=== PATIENT | male | born 1955 | race Caucasian/White ===

== ENCOUNTER → 2021-07-02 10:41 | Outpatient (CLI) | payer MEDICARE, MEDICAID, SELFPAY ==
--- NOTE | 2021-07-02 10:52 | EKG12_ITS ---
Test Reason : SOB,CP Blood Pressure : / mmHG Vent. Rate : 080 BPM Atrial Rate : 080 BPM P-R Int : 176 ms QRS Dur : 120 ms QT Int : 384 ms P-R-T Axes : 047 -65 075 degrees QTc Int : 442 ms Normal sinus rhythm Left anterior fascicular block Left ventricular hypertrophy with QRS widening Abnormal ECG Confirmed by NAHOMY MATTHEWS, ADELSO ([id number]), science editor KADEN PRO ([id number]) on 07/02/2021 2:01:32 PM Referred By: Concepción Weiss Confirmed By:ADELSO COREA MD
--- NOTE | 2021-07-04 07:25 | PFT ---
INTRODUCTION: The patient is a 66-year-old male that presents for pulmonary function studies secondary to a diagnosis of shortness of breath. Respiratory therapy reported good patient effort. Bronchodilators were used during testing. INTERPRETATION: Forced expiration spirometry demonstrates the presence of a mild large airways obstructive ventilatory defect. There was no significant response to aerosolized bronchodilators. Spirograms are of good quality but plateau gradually indicating slow emptying of the lungs. Body plethysmography was performed and revealed an elevated RV to 159% of predicted, indicative of underlying air trapping. Diffusing capacity by single breath CO is reduced to 56% of predicted. IMPRESSION: Irreversible mild large airways obstructive ventilatory defect with associated air trapping and symmetric reduction in diffusing capacity.
== END ==
PROVIDERS: PCP Nurse Practitioner Adult Health; Referring Provider Nurse Practitioner Adult Health; Visit Provider Nurse Practitioner Adult Health
DX: R06.02 Shortness of breath (principal); R07.9 Chest pain, unspecified
CPT/HCPCS: 93005; 94060; 94726; 94729

== ENCOUNTER → 2021-11-11 | Outpatient (CLI) | payer MEDICARE, MEDICAID, SELFPAY ==
--- NOTE | 2021-11-11 06:48 | ECHOD_ITS ---
Reason For Study: SOB Procedure This was a 2D Doppler, Color Flow transthoracic echocardiogram. The exam was of adequate technical quality. Exam performed in department. Left Ventricle Normal LV size. Left ventricular systolic function is normal. The estimated ejection fraction is 60 %. No evidence for diastolic dysfunction. No regional wall motion abnormalities noted. Right Ventricle Normal RV size. Normal systolic function. Atria Normal left atrium. Normal right atrium. No doppler evidence for ASD. Bubble contrast study negative for right to left interatrial shunt. Mitral Valve There is no mitral annular calcification. Mild diffuse mitral valve thickening. Moderate mitral valve prolapse, posterior leaflet. Mild (1+) mitral valve insufficiency. Tricuspid Valve Normal tricuspid valve. Trivial tricuspid valve insufficiency. Right ventricular systolic pressure estimated to be 33 mmHg. Aortic Valve Trisinus/trileaflet aortic valve. Normal aortic valve. Pulmonic Valve The pulmonic valve is not well visualized. Trivial pulmonic valve insufficiency. Great Vessels Normal sized aortic root. Pericardium/Pleural No pericardial effusion. Medication Performed a rapid injection of agitated mix of 9 cc saline and 1cc air to assess for atrial septal defect. MMode/2D Measurements & Calculations LVIDd: 4.9 cm IVSd: 1.3 cm Ao root diam: 3.1 cm LVIDs: 3.0 cm LVPWd: 1.3 cm RVDd: 3.2 cm FS: 38.5 % LAV(MOD-bp): 33.8 ml LVAd ap4: 33.0 cm2 LVAd ap2: 27.2 cm2 LAV(MOD-bp) Indexed: 17.5 ml/m2 LVLd ap4: 8.4 cm LVLd ap2: 8.5 cm LAV(MOD-sp2): 28.1 ml EDV(MOD-sp4): 103.8 ml EDV(MOD-sp2): 73.9 ml LAV(MOD-sp4): 36.9 ml EDV(sp4-el): 109.6 ml EDV(sp2-el): 73.7 ml LVAs ap4: 18.7 cm2 LVAs ap2: 16.1 cm2 LVLs ap4: 6.9 cm LVLs ap2: 7.6 cm ESV(MOD-sp4): 42.7 ml ESV(MOD-sp2): 30.8 ml ESV(sp4-el): 42.9 ml ESV(sp2-el): 28.7 ml EF(MOD-sp4): 58.8 % EF(MOD-sp2): 58.4 % EF(sp4-el): 60.8 % SV(MOD-sp4): 61.1 ml SV(MOD-sp2): 43.2 ml SV(sp4-el): 66.7 ml LA A4 area: 15.2 cm2 LA dimension(2D): 4.1 cm RA A4 area: 13.1 cm2 Doppler Measurements & Calculations MV E max andrew: 49.9 cm/sec Lat Peak E' Andrew: 7.2 cm/sec Med Peak E' Andrew: 6.9 cm/sec MV A max andrew: 59.0 cm/sec E/E' lat: 7.0 E/E' med: 7.2 MV E/A: 0.85 Ao V2 max: 114.2 cm/sec LV V1 max: 89.8 cm/sec PA V2 max: 112.2 cm/sec Ao max P.2 mmHg LV V1 max P.2 mmHg TR max andrew: 271.6 cm/sec TR max P.5 mmHg ECHO/Echo Complete Interpretation Summary Left ventricular systolic function is normal. The estimated ejection fraction is 60 %. Mild diffuse mitral valve thickening. Moderate mitral valve prolapse, posterior leaflet Mild (1+) mitral valve insufficiency. Trivial tricuspid valve insufficiency. Trivial pulmonic valve insufficiency. Right ventricular systolic pressure estimated to be 33 mmHg. No evidence for diastolic dysfunction. Bubble contrast study negative for right to left interatrial shunt. Ordering Physician: Arnel Li Referring Physician: Concepción Weiss Performed By: Margaret Emerson RDCS
--- NOTE | 2021-11-11 08:24 | STRESSREP_ITS ---
Stress Test Report Date: Procedure: Pharmacologic stress nuclear imaging study Indications: Shortness of breath/dyspnea on exertion; right foot tumor/radiation therapy Consent: Per the patient Procedure: The patient underwent pharmacologic (Regadenoson 0.4mg ) evaluation with a peak heart rate of 90 beats per minute (58%predicted maximal heart rate) and a peak blood pressure of 138/80 mmHg. The baseline ECG demonstrated sinus bradycardia; poor R wave progression. The peak pharmacologic ECG demonstrated no obvious ECG changes. There were no cardiac dysrhythmias pretest, during pharmacologic infusion, or recovery. There was no complaint of chest discomfort during pharmacologic infusion or recovery. The examination was discontinued secondary to completion of protocol. Impression: 1. Pharmacologic (Regadenoson) evaluation 2. Peak pharmacologic ECG with no obvious ECG changes. 3. There were no cardiac dysrhythmias pretest, during pharmacologic infusion, or recovery. 4. Nuclear images pending Myocardial perfusion imaging study: Technique: The patient was injected with 13.9 millicuries of technetium 99m Cardiolite and subsequently rest SPECT Cardiolite nuclear imaging was obtained in the horizontal long, vertical long, and short axis views. The patient underwent pharmacologic (Regadenoson) evaluation with a peak heart rate of 90 beats per minute (58% percent predicted maximal heart rate) and a peak blood pressure of 138/80 mmHg. The patient was injected with 44.1 millicuries of technetium 99m Cardiolite and subsequently stress SPECT Cardiolite nuclear imaging was obtained in the horizontal long, vertical long, and short axis views. A gated Cardiolite study at peak stress was obtained. Interpretation: Rest and stress SPECT Cardiolite nuclear imaging status post realignment, normalization, and attenuation correction demonstrate relative uniform tracer uptake and myocardial perfusion appearing within normal limits. There is end systolic thickening and brightening. The gated Cardiolite study demonstrates myocardial thickening and inward wall motion. The reported LVEF is 66%. Impression: 1. Rest and stress SPECT Cardiolite nuclear imaging demonstrate relative uniform tracer uptake and myocardial perfusion appearing within normal limits. 2. The gated Cardiolite study reports an LVEF of 66%. This note was generated with Ter[employer]entiaation software. It may contain incorrect words, spelling, and punctuation that were not noted in checking the note before signing.
== END | disposition home or self-care (01) ==
LOC: CVS 06:47
PROVIDERS: PCP Nurse Practitioner Adult Health; Referring Provider Internal Medicine Cardiovascular Disease; Visit Provider Internal Medicine Cardiovascular Disease
DX: R06.02 Shortness of breath (principal); E78.00 Pure hypercholesterolemia, unspecified; R07.9 Chest pain, unspecified; Z82.49 Family history of ischemic heart disease and other diseases of the circulatory system
CPT/HCPCS: 78452; 93017; 93306; A9500; A4216; J2785

== ENCOUNTER → 2024-02-21 | Outpatient (CLI) | payer MEDICARE, SELFPAY ==
[2024-02-21 10:18] LABS: Absolute Lymphocyte Count 1.71 X10^3/uL (0.83-4.51); Absolute Neutrophil Count 5.2 X10^3/uL (2.0-7.7); Basophil# 0.05 X10^3/uL; Basophil% 0.6 % (0-1); Eosinophil# 0.18 X10^3/uL; Eosinophils% 2.3 % (0-5); Hematocrit 48.3 % (40-54); Hemoglobin 15.3 g/dL (13.0-16.5); Lymphocyte # 1.71 X10^3/ul (0.83-4.51); Mean Corp Hgb Conc 31.7 g/dL (32-36); Mean Corpuscular Hgb 29.3 pg (27.0-32.0); Mean Corpuscular Volume 92.5 fL (80-94); Mean Platelet Vol. 10.2 fl (6.2-12.0); Monocyte# 0.64 X10^3/uL; Monocyte% 8.2 % (0-10); NRBC Flagged by Analyzer 0 % (0-5); Neutrophil # 5.15 X10^3/uL (2.7-7.7); Neutrophil % 66.3 % (47-70); Platelet Count 314 K/mm3 (150-450); RBC Distribution Width CV 13.8 % (11.6-14.6); RBC Distribution Width SD 46.5 fl (35.1-43.9); Red Blood Count 5.22 M/mm3 (4.6-6.2); White Blood Count 7.8 K/mm3 (4.4-11.0)
[2024-02-21 10:47] LABS: AST(SGOT) 23 U/L (15-37); Alanine Aminotransfer ALT/SGPT 28 U/L (16-61); Albumin, Serum 3.7 g/dL (3.2-5.0); Alkaline Phosphatase 103 U/L (45-117); Anion Gap 8 (5-15); BUN 17 mg/dL (7-18); BUN/Creat Ratio 22.4 RATIO (10-20); Calcium,Total 9.1 mg/dL (8.5-10.1); Chloride 110 mmol/L (98-107); Cholesterol 133 mg/dL (200); Creatinine, Serum 0.76 mg/dL (0.70-1.30); EST Glomerular Filtration Rate 108 mL/min (>60); Est Glom Filt Rate - Afr Amer 131 mL/min (>60); Globulin 3.6 g/dL (2.2-4.2); Glucose 113 mg/dL (74-106); High Density Lipoprotein 42 mg/dL; PSA,Total - Annual Screen 0.48 ng/mL (0.00-4.00); Potassium 4.3 mmol/L (3.5-5.1); Protein, Total 7.3 g/dL (6.4-8.2); Sodium Level 143 mmol/L (136-145); Triglycerides 127 mg/dL; Very Low Density Lipoprotein 25 mg/dL (5-40)
== END | disposition home or self-care (01) ==
LOC: MFPLAB 08:24
PROVIDERS: PCP Family Medicine; Visit Provider Family Medicine
DX: Z12.5 Encounter for screening for malignant neoplasm of prostate (principal); E78.5 Hyperlipidemia, unspecified
CPT/HCPCS: 36415; 80053; 80061; 84153; 85025; G0103

== ENCOUNTER → 2024-04-01 | Outpatient (CLI) | payer MEDICARE, SELFPAY ==
--- NOTE | 2024-04-01 07:39 | CT_ITS ---
STUDY: LOW DOSE CT LUNG CANCER SCREENING REASON FOR EXAM: Male, 68 years old. Hx of nicotine RADIATION DOSAGE (If Supplied By Facility): CTDIvol = ( 3.02 ) mGy, DLP = ( 92.14 ) mGycm TECHNIQUE: No contrast was administered. Low dose technique was utilized (average mAS-38 and kVp 120). 1.25 mm axial source images with a slice interval of 1.25-mm were reconstructed in lung windows. 2.5 mm axial source images with a slice interval of 2.5-mm were reconstructed in lung windows. 5.0 mm axial source images with a slice interval of 5.0-mm were reconstructed in soft tissue windows. COMPARISON: None. NODULES: Total lung nodules (excluding granulomas): 0 Emphysema: Moderate centrilobular emphysema. Endobronchial lesion: Not present Aorta: Mild atherosclerosis CORONARY ARTERIES: Coronary artery calcification is seen. Heart: Normal size Pulmonary artery: Unremarkable for unopacified technique. Mediastinal nodes: No adenopathy. Other chest and abdominal findings: No significant incidental finding. CT/Low Dose CT Lung Screening IMPRESSION: Lung-RADS category 1 - Continue annual screening with LDCT in 12 months. IMPORTANT NOTES FOR USE: ACR Lung-RADS Version 1.1 Assessment Categories Release Date: 2018 Category: Coded 0-4 bases on nodule(s) with highest degree of suspicion. Negative screen is defined as categories 1 and 2; a positive screen is defined as categories 3 and 4. Category 3 and 4A nodules that are unchanged on interval CT should be coded as category 2, and individuals returned to screening in 12 months. Category 4X: Category 3 or 4 nodules with additional imaging findings that increase the suspicion of lung cancer, such as spiculation, GGN that doubles in size in 1 year, enlarged lymph notes, etc. Category Modifiers: S (significant finding unrelated to lung cancer) Electronically Signed: Ferdinand Reed MD (Brooks) at 10:10 EDT Reading Location ID and State: [facility] / [place] , Service support ,
== END | disposition home or self-care (01) ==
PROVIDERS: PCP Family Medicine; Referring Provider Family Medicine; Visit Provider Family Medicine
DX: Z87.891 Personal history of nicotine dependence (principal)
CPT/HCPCS: 71271

== ENCOUNTER 2024-07-07 10:27 | Emergency (ER) | payer MEDICARE, MEDICAID, SELFPAY ==
[2024-07-07 10:27] VITALS: BP 158/82; PULSE 80; RESP 14; TEMP 36.3; O2SAT 97; BMI 36.6
--- NOTE | 2024-07-07 11:28 | EDS_ITS ---
HPI History of Present Illness Chief Complaint: Nosebleed Narrative Narrative: Patient is a 69-year-old male with past medical history of hypercholesteremia, COPD who presents to the emergency department chief complaint of nosebleed. Patient states that his left side of his nose has been bleeding off and on for the past 3 days. He states that around 9:45 AM this morning he developed a nosebleed and states that he had changed out several tissues in his nose therefore he came here for further evaluation management. Patient states that he is not on any blood thinning medications. Patient notes that he has had a headache as well and notes that his blood pressure has been running high in the 150s 160s he states that he is not on any blood thinner medications. He states that he has not followed up with her primary care physician he states that he wanted to wait until after the holidays to follow-up with them on his blood pressure. [facility] Medical History Acute bronchitis, unspecified Arthritis COPD (chronic obstructive pulmonary disease) Family history of coronary artery disease Pure hypercholesterolemia Home Medications ?Medication ?Instructions ?Recorded ?Last Taken ?Type ascorbic acid (vitamin C) 1,000 mg 1 g PO DAILY 09/25/21 Unknown History tablet atorvastatin 10 mg tablet 10 mg PO QHS 09/25/21 Unknown History albuterol sulfate 90 mcg/actuation 2 puff inhalation Q6H PRN sob 10/23/21 Unknown History aerosol inhaler (ProAir HFA) fluticasone fur. 100 mcg-umeclid 1 inh inhalation DAILY 10/23/21 Unknown History 62.5 mcg-vilant 25 mcg inhalat.powder (Trelegy Ellipta) cholecalciferol (vitamin D3) 25 50 mcg PO DAILY 10/05/22 Unknown History mcg (1,000 unit) tablet multivitamin (One Daily 1 tab PO DAILY 10/05/22 Unknown History Multivitamin tablet) albuterol sulfate 90 mcg/actuation 2 puff inhalation Q4-6H PRN 12/23/23 Unknown Rx aerosol inhaler shortness of breath or wheezing #6.7 grams erythromycin 5 mg/gram (0.5 %) eye RIGHT EYE QHS 07/07/24 Unknown History ointment Allergy/AdvReac Type Severity Reaction Status Date / Time Fish Containing Products Allergy Intermediate Rash Verified 07/07/24 10:28 Iodine and Iodide Containing Allergy Intermediate Rash Verified 07/07/24 10:28 Produc Family History Father CAD (coronary artery disease) Myocardial infarction History of coronary artery bypass surgery Hypertension Mother Heart disease Hypertension Cancer Colon Brother CAD (coronary artery disease) Myocardial infarction Social History Smoking Status: Former smoker alcohol intake: current details: Occasional substance use type: does not use caffeine: Yes Type: coffee Number of servings: 2 ROS ROS ED ROS Narrative Constitutional: Denies any fevers, chills, lightheadedness dizziness Eyes, ears, nose, throat: Complains of bleeding from his nose as noted above denies any changes vision double vision blurry vision Cardiovascular: Denies chest pain palpitation Respiratory: Denies coughing wheezing shortness of breath Neurological: Denies any numbness, wheeze, tingling Musculoskeletal: Denies back pain Skin: Denies rashes or lesions EXAM Physical Exam Narrative Exam Narrative: General: Patient lying in bed rest comfortably did not appear to be in acute distress Head: Atraumatic, normocephalic Eyes, ears, nose, throat: Patient has clot noted to the left anterior nare, no active bleeding noted currently here in the emergency department, PERRL body, EOMI bladder, no conjunctival injection noted Neck: Soft, supple, trach midline Cardiovascular: Regular rate and rhythm Extremities: +5/5 strength noted in the bilateral upper and lower extremities Neurological: Patient following commands knew that he was at [facility] years 2023 Skin: Warm, dry, intact Const Vital Signs: 07/07/24 10:27 07/07/24 12:27 Temperature 97.3 F L Temperature Source Temporal Pulse Rate 80 78 Respiratory Rate 14 16 Blood Pressure 158/82 H 129/86 H Blood Pressure Mean 107 100 Pulse Ox 97 94 Oxygen Delivery Method Room Air Room Air MDM MDM MDM Narrative Medical decision making narrative: Patient is a 69-year-old male who presented to the emergency department chief complaint of epistaxis. Once again the patient is not any blood thinning medications he is nontoxic in appearance and there is no active bleeding at this point time. Patient will be observed here in the emergency department and then be reevaluated. Patient was observed here in the emergency department for a few hours and he had no recurrence of his epistaxis. Patient was advised to keep a close eye on his blood pressure. On repeat evaluation his blood pressure is improved to 129/86. He is advised to get [id number] saline nasal spray and avoid blowing his nose for the next few days. He was advised to keep a blood pressure log and take this to his doctor early next week for an appointment to decide whether he needs antihypertensives or not. Patient would like to go home at this point time he is agreeable this plan all question concerns answered is discharged home in stable condition. Discharge Plan Triage Chief Complaint: Nosebleed ED Provider: Palmer Whittaker Dx/Rx/DC Orders Clinical Impression: Epistaxis Prescriptions: No Action Trelegy Ellipta 100-62.5-25 mcg blister with device 1 inh inhalation DAILY albuterol sulfate [ProAir HFA] 90 mcg/actuation HFA aerosol inhaler 2 puff inhalation Q6H PRN (Reason: sob) atorvastatin 10 mg tablet 10 mg PO QHS ascorbic acid (vitamin C) 1,000 mg tablet 1 g PO DAILY cholecalciferol (vitamin D3) 25 mcg (1,000 unit) tablet 50 mcg PO DAILY multivitamin [One Daily Multivitamin] Tablet 1 tab PO DAILY albuterol sulfate 90 mcg/actuation HFA aerosol inhaler 2 puff inhalation Q4-6H PRN (Reason: shortness of breath or wheezing) Qty: 6.7 0RF erythromycin 5 mg/gram (0.5 %) ointment RIGHT EYE QHS Primary Care Provider: Suresh Castillo Referrals: Suresh Castillo MD [Primary Care Provider] - Activity Restrictions/Additional Instructions: Use [id number] nasal saline spray, avoid blowing nose for the next 3 days, use humidifier as we discussed here. Keep a blood pressure log by randomly taking her blood pressure 2-3 times a day and writing down what time he took it and what the blood pressure was so your doctor can decide if you need blood pressure medication or not. Return with worsening symptoms or any other concerns Print Language: Faroese Disposition Disposition: Home, Self Care
[2024-07-07 12:27] VITALS: BP 129/86; PULSE 78; RESP 16; O2SAT 94
[2024-07-07 12:41] VITALS: BP 148/77; PULSE 68; RESP 15; TEMP 36.6; O2SAT 98
== END 2024-07-07 12:44 | disposition home or self-care (01) ==
PROVIDERS: Emergency Provider Emergency Medicine; PCP Family Medicine; Visit Provider Emergency Medicine
DX: R04.0 Epistaxis (principal); J44.9 Chronic obstructive pulmonary disease, unspecified; R51.9 Headache, unspecified; E78.00 Pure hypercholesterolemia, unspecified; Z79.51 Long term (current) use of inhaled steroids; Z87.891 Personal history of nicotine dependence; Z79.899 Other long term (current) drug therapy
CPT/HCPCS: 99282

== ENCOUNTER → 2024-12-22 | Outpatient (CLI) | payer MEDICARE, SELFPAY ==
--- NOTE | 2024-12-22 09:48 | ECHOCS_ITS ---
Reason For Study Reason For Study: murmur Procedure This was a 2D Doppler, Color Flow transthoracic echocardiogram. The study was technically difficult. Due to body habitus. Contrast injection was performed. Exam performed in department. Left Ventricle Normal LV size. The estimated ejection fraction is 60 %. No evidence for diastolic dysfunction. No regional wall motion abnormalities noted. Right Ventricle Normal RV size. Normal systolic function. Atria The left atrium is mildly enlarged. Normal right atrium. No doppler evidence for ASD. Mitral Valve There is no mitral valve stenosis. Mild (1+) mitral valve insufficiency. Tricuspid Valve There is no tricuspid stenosis. Trivial tricuspid valve insufficiency. Unable to estimate RV systolic pressure due to insufficient tricuspid regurgitant envelope. Aortic Valve Trisinus/trileaflet aortic valve. Aortic sclerosis, no stenosis. There is no aortic stenosis. No aortic valve insufficiency. Pulmonic Valve There is no pulmonic valvular stenosis. No pulmonic valve insufficiency. Great Vessels Normal sized aortic root. Pericardium/Pleural No pericardial effusion. Medication 20 gauge I.V. with prn adaptor inserted into right arm. Diluted definity 3.0ml given slow IV push to enhance endocardial definition. MMode/2D Measurements & Calculations LVIDd: 5.6 cm IVSd: 1.2 cm Ao root diam: 3.2 cm LVIDs: 3.4 cm LVPWd: 1.4 cm RVDd: 2.3 cm FS: 39.1 % LAV(MOD-bp): 79.5 ml LVAd ap4: 33.9 cm2 LVAd ap2: 33.7 cm2 LAV(MOD-bp) Indexed: 39.3 ml/m2 LVLd ap4: 8.1 cm LVLd ap2: 8.3 cm LAV(MOD-sp2): 73.9 ml EDV(MOD-sp4): 116.6 ml EDV(MOD-sp2): 113.7 ml LAV(MOD-sp4): 86.6 ml EDV(sp4-el): 120.1 ml EDV(sp2-el): 115.6 ml LVAs ap4: 19.7 cm2 LVAs ap2: 19.2 cm2 LVLs ap4: 7.3 cm LVLs ap2: 7.2 cm ESV(MOD-sp4): 44.9 ml ESV(MOD-sp2): 42.3 ml ESV(sp4-el): 45.6 ml ESV(sp2-el): 43.7 ml EF(MOD-sp4): 61.5 % EF(MOD-sp2): 62.8 % EF(sp4-el): 62.1 % SV(MOD-sp4): 71.7 ml SV(MOD-sp2): 71.4 ml SV(sp4-el): 74.6 ml SI(MOD-sp4): 35.5 ml/m2 SI(MOD-sp2): 35.3 ml/m2 LA A4 area: 25.0 cm2 LA dimension(2D): 4.8 cm RA A4 area: 14.0 cm2 TAPSE: 2.2 cm Time Measurements MV dec time: 0.20 sec Doppler Measurements & Calculations MV E max andrew: 109.9 cm/sec Lat Peak E' Andrew: 14.6 cm/sec Med Peak E' Andrew: 11.7 cm/sec MV A max andrew: 76.6 cm/sec E/E' lat: 7.5 E/E' med: 9.4 MV E/A: 1.4 MV V2 max: 122.5 cm/sec MV P1/2t max andrew: 119.9 cm/sec Ao V2 max: 116.3 cm/sec MV max P.0 mmHg MV P1/2t: 58.8 msec Ao max P.4 mmHg MV V2 mean: 65.0 cm/sec MV dec slope: 597.0 cm/sec2 Ao V2 mean: 80.1 cm/sec MV mean P.0 mmHg MVA(P1/2t): 3.7 cm2 Ao mean P.9 mmHg MV V2 VTI: 28.4 cm Ao V2 VTI: 24.3 cm AV (velocity ratio): 0.74 LV V1 max: 93.1 cm/sec MR max andrew: 481.2 cm/sec PA V2 max: 87.2 cm/sec LV V1 max P.5 mmHg MR max P.2 mmHg PA V2 mean: 59.2 cm/sec LV V1 mean P.9 mmHg MR mean andrew: 378.7 cm/sec LV V1 mean: 65.0 cm/sec MR mean P.8 mmHg LV V1 VTI: 18.1 cm MR VTI: 129.1 cm TR max andrew: 226.6 cm/sec TR max P.5 mmHg ECHO/Echo Complete W/ Contrast Interpretation Summary The estimated ejection fraction is 60 %. No evidence for diastolic dysfunction. Mild (1+) mitral valve insufficiency. The left atrium is mildly enlarged. Ordering Physician: Suresh Castillo Referring Physician: Suresh Castillo Performed By: Joyce Barnes, KYARA, RVT
--- OUTSIDE RECORDS SUMMARY | 2024-12-22 14:02 | XMS RPT_ITS | CCD ---
Author Organization [facility] Care Team Providers Care Debug Technician Name Role Phone Abhishek, ANTHONY-C Alondra Primary Care Provider Loren Barbour Attending Provider Unavailable KIM Weiss Alondra Referring Provider [phone] Dr. Arnel Li Attending Provider Dr. Arnel Li Referring Provider [phone] Dr. Arnel Li Other Provider Robert MATTHEWS, Apolinar Jean Primary Care Provider [phone] Alonzo MATTHEWS, Ashlyn Unavailable Weiss VSC, Alondra Primary Care Unavailable Weiss VSC, Alondra Referring Unavailable Cain Story Attending Unavailable Anna, Chalon Primary Care Unavailable Jaclyn Pacheco Attending Unavailable Anna, Chalon Referring Unavailable Anna, Chalon Primary Care Unavailable Anna, Chalon Attending Unavailable Anna, Chalon Referring Unavailable Anna, Chalon Primary Care Unavailable Anna, Chalon Attending Unavailable Anna, Chalon Primary Care Unavailable Anna, Chalon Attending Unavailable Anna, Chalon Referring Unavailable Anna, Chalon Primary Care Unavailable Palmer Whittaker Attending Unavailable Allergies Allergy Classification Reported Allergen(s) Allergy Type Date of Onset Reaction(s) Facility (2 sources) Fish Containing Products; Translations: [Fish Containing Products] Propensity to adverse reactions 2 Unknown [facility] Repository (2 sources) Iodine and Iodide Containing Produc; Translations: [Iodine and Iodide Containing Produc] Propensity to adverse reactions 2 Unknown [facility] Repository (1 source) Fish Food Allergy 5 Rash [facility] Work Phone: (1 source) Iodine Drug Allergy 9 Rash [facility] Medications Current Medications Medication Drug Class(es) Dates Sig (Normalized) Sig (Original) Albuterol Sulfate (1 source) beta2-Adrenergic Agonist Start: 10-23-2021 take 1 puff(s) by inhalation every six hours Albuterol Sulfate (Proair Hfa) 90 mcg/actuation HFA aerosol inhaler Active 2 PUFF INHALATION EVERY 6 HOURS October 23, 2021 10:59am Ascorbic Acid (2 sources) Vitamin C Start: 09-25-2021 take 1 g by mouth once daily Ascorbic Acid (Vitamin C) Active 1 GM PO DAILY September 25, 2021 9:29am ascorbic acid (V ITAMIN C ORAL) Take by mouth. Active atorvastatin 10 mg oral tablet (2 sources) HMG-CoA Reductase Inhibitor Start: 09-25-2021 take 10 mg by mouth at bedtime Atorvastatin Active 10 MG PO AT BEDTIME September 25, 2021 9:28am Start: 02-15-2020 End: 09-16-2020 take 1 tablet by mouth once daily at bedtime for hyperlipidemia atorvastatin (LIPITOR) 10 mg tablet Indications: Other hyperlipidemia Take 1 tablet by mouth daily at bedtime. For cholesterol. 90 tablet 1 02/15/2020 09/16/2020 Discontinued cholecalciferol 0.025 mg oral tablet (1 source) Vitamin D Start: 09-25-2021 take 25 ug by mouth once daily Cholecalciferol (Vitamin D3) Active 25 MCG PO DAILY September 25, 2021 9:29am Fluticasone-Umeclidin- Vilanter (1 source) Anticholinergi c, Corticosteroid , beta2-Adrenerg ic Agonist Start: 10-23-2021 Fluticasone-Umeclidi n -Vilanter (Trelegy Ellipta) 100-62.5-25 mcg blister with device Active 1 INH INHALATION DAILY October 23, 2021 10:58am multivitamins(DAILY VITAMIN TAB) (1 source) Start: 09-18-2008 multivitamins( DAILY VITAMIN TAB) Take one(1) tablet daily. 0 09/18/2008 Active VITAMIN E ORAL (1 source) VITAMIN E ORAL T anders by mouth. Active Completed/Discontinued Medications Medication Drug Class(es) Dates Sig (Normalized) Sig (Original) gabapentin 300 mg oral capsule (1 source) Anti-epileptic Agent Start: 09-25-2021 End: 10-23-2021 take 300 mg by mouth once daily Gabapentin Discontinued 300 MG PO DAILY September 25, 2021 9:29am October 23, 2021 11:00am Problems Active Problems Problem Classification Problem Date Documented Da te Episodic/Chronic Chronic obstructive pulmonary disease and bronchiectasis (2 sources) Chronic obstructive lung disease; Translations: [Chronic obstructive pulmonary disease, unspecified] Chronic Disorders of lipid metabolism (3 sources) Pure hypercholesterolemi a; Translations: [Pure hypercholesterolemi a, unspecified] Onset: 11-26-2005 Chronic Heart valve disorders (1 source) Cardiac murmur, unspecified; Translations: [Cardiac murmur, unspecified] Onset: 12-21-2024 Episodic Nonspecific chest pain (2 sources) Chest pain; Translations: [Chest pain, unspecified] Episodic Other lower respiratory disease (1 source) Dyspnea on exertion; Translations: [Shortness of breath] Episodic Other lower respiratory disease (1 source) Shortness of breath; Translations: [Shortness of breath] Episodic Other non-traumatic joint disorders (1 source) Swelling of joint of left wrist; Translations: [Effusion, left wrist] 05-16-2020 Episodic Other nutritional; endocrine; and metabolic disorders (1 source) Obese class I; Translations: [Obesity, Class I, BMI 30-34.9] Onset: 05-16-2020 05-16-2020 Chronic Other upper respiratory disease (1 source) Epistaxis; Translations: [Epistaxis] Onset: 11-17-2024 Episodic Residual codes; unclassified (1 source) Family history of coronary arteriosclerosis; Translations: [Family history of ischemic heart disease and other diseases of the circulatory system] Episodic Residual codes; unclassified (1 source) Family history of ischemic heart disease and other diseases of the circulatory system; Translations: [Family history of ischemic heart disease] Episodic Past or Other Problems Problem Classification Problem Date Documented Da te Episodic/Chronic Coronary atherosclerosis and other heart disease (1 source) Prinzmetal angina; 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] Onset: 11-26-2005 Resolved: 09-04-2019 09-04-2019 Chronic Immunizations and screening for infectious disease (1 source) Encounter for immunization; Translations: [Encounter for immunization] Onset: 04-22-2024 Episodic Other and unspecified benign neoplasm (1 source) Hemangioma of subcutaneous tissue; Translations: [Hemangioma of skin and subcutaneous tissue] Onset: 10-11-2008 09-04-2019 Episodic Other circulatory disease (1 source) H/O: angina pectoris; Translations: [Personal history of other diseases of the circulatory system] Onset: 04-04-2020 04-04-2020 Episodic Other connective tissue disease (1 source) Pain in limb; Translations: [Pain in unspecified limb] Onset: 09-18-2008 Resolved: 09-04-2019 09-04-2019 Episodic Other screening for suspected conditions (not mental disorders or infectious disease) (1 source) Encounter for screening for malignant neoplasm of prostate; Translations: [Encounter for screening for malignant neoplasm of prostate] Onset: 03-23-2024 Episodic Other skin disorders (1 source) Disorder of skin and/or subcutaneous tissue; Translations: [Disorder of the skin and subcutaneous tissue, unspecified] Onset: 09-18-2008 Resolved: 09-04-2019 09-04-2019 Episodic Screening and history of mental health and substance abuse codes (2 sources) Ex-smoker; Translations: [Personal history of nicotine dependence] Onset: 04-04-2020 04-04-2020 Episodic Substance-related disorders (1 source) Tobacco user; Translations: [Nicotine dependence, unspecified, uncomplicated] Onset: 11-26-2005 Resolved: 09-04-2019 09-04-2019 Chronic Results Test Name Value Interpretation Reference Range Facility Emergency Department Summary on 07-07-2024 Emergency Department Summary [facility] Medical Records Department [address] [place] [id number] Emergency Department Summary 07/07/24 MR#: [id number] Acct: [id number] Name: DINO LAWSON Rep #: [id number] : 1955 69 From: Palmer Whittaker DO PCP: Dr. Suresh Castillo MD Status:REG ER Location: ED HPI History of Present Illness Chief Complaint: Nosebleed Narrative Narrative: Patient is a 69-year-old male with past medical history of hypercholesteremia, COPD who presents to the emergency department chief complaint of nosebleed. Patient states that his left side of his nose has been bleeding off and on for the past 3 days. He states that around 9:45 AM this morning he developed a nosebleed and states that he had changed out several tissues in his nose therefore he came here for further evaluation management. Patient states that he is not on any blood thinning medications. Patient notes that he has had a headache as well and notes that his blood pressure has been running high in the 150s 160s he states that he is not on any blood thinner medications. He states that he has not followed up with her primary care physician he states that he wanted to wait until after the holidays to follow-up with them on his blood pressure. [facility] Medical History Acute bronchitis, unspecified Arthritis COPD (chronic obstructive pulmonary disease) Family history of coronary artery disease Pure hypercholesterolemia Home Medications ???Medication ???Instructions ???Recorded ???Last Taken ???Type ascorbic acid (vitamin C) 1,000 mg 1 g PO DAILY 09/25/21 Unknown History tablet atorvastatin 10 mg tablet 10 mg PO QHS 09/25/21 Unknown History albuterol sulfate 90 mcg/actuation 2 puff inhalation Q6H PRN sob 10/23/21 Unknown History aerosol inhaler (ProAir HFA) fluticasone fur. 100 mcg-umeclid 1 inh inhalation DAILY 10/23/21 Unknown History 62.5 mcg-vilant 25 mcg inhalat.powder (Trelegy Ellipta) cholecalciferol (vitamin D3) 25 50 mcg PO DAILY 10/05/22 Unknown History mcg (1,000 unit) tablet multivitamin (One Daily 1 tab PO DAILY 10/05/22 Unknown History Multivitamin tablet) albuterol sulfate 90 mcg/actuation 2 puff inhalation Q4-6H PRN 12/23/23 Unknown Rx aerosol inhaler shortness of breath or wheezing #6.7 grams erythromycin 5 mg/gram (0.5 %) eye RIGHT EYE QHS 07/07/24 Unknown History ointment Allergy/AdvReac Type Severity Reaction Status Date / Time Fish Containing Products Allergy Intermediate Rash Verified 07/07/24 10:28 Iodine and Iodide Containing Allergy Intermediate Rash Verified 07/07/24 10:28 Produc Family History Father CAD (coronary artery disease) Myocardial infarction History of coronary artery bypass surgery Hypertension Mother Heart disease Hypertension Cancer Colon Brother CAD (coronary artery disease) Myocardial infarction Social History Smoking Status: Former smoker alcohol intake: current details: Occasional substance use type: does not use caffeine: Yes Type: coffee Number of servings: 2 ROS ROS ED ROS Narrative Constitutional: Denies any fevers, chills, lightheadedness dizziness Eyes, ears, nose, throat: Complains of bleeding from his nose as noted above denies any changes vision double vision blurry vision Cardiovascular: Denies chest pain palpitation Respiratory: Denies coughing wheezing shortness of breath Neurological: Denies any numbness, wheeze, tingling Musculoskeletal: Denies back pain Skin: Denies rashes or lesions EXAM Physical Exam Narrative Exam Narrative: General: Patient lying in bed rest comfortably did not appear to be in acute distress Head: Atraumatic, normocephalic Eyes, ears, nose, throat: Patient has clot noted to the left anterior nare, no active bleeding noted currently here in the emergency department, PERRL body, EOMI bladder, no conjunctival injection noted Neck: Soft, supple, trach midline Cardiovascular: Regular rate and rhythm Extremities: +5/5 strength noted in the bilateral upper and lower extremities Neurological: Patient following commands knew that he was at [facility] years 2023 Skin: Warm, dry, intact Const Vital Signs: 07/07/24 10:27 07/07/24 12:27 Temperature 97.3 F L Temperature Source Temporal Pulse Rate 80 78 Respiratory Rate 14 16 Blood Pressure 158/82 H 129/86 H Blood Pressure Mean 107 100 Pulse Ox 97 94 Oxygen Delivery Method Room Air Room Air MDM MDM MDM Narrative Medical decision making narrative: Patient is a 69-year-old male who presented to the emergency department chief complaint of epistaxis. Once again the patient is not any blood thinnin (more content not included)... Normal [facility] Office Visit Reporton 2023 Office Visit Report [facility] [address] [place] [address] OFFICE VISIT Date of Service: 04/22/24 MR#: [id number] Acct: [id number] Patient: DINO LAWSON Rep #: [id number] : 1955 Provider: KIM Pacheco Age/Sex: 69/M Location: [facility] Status: Signed Intake Vital Signs 06/28/23 12:27 Height 5 ft 7 in Intake Visit Reasons: TETANUS SHOT Chief Complaint: Tdap Hyperbaric Technologist Required: No Is patient in pain?: No Allergies Fish Containing Products Allergy (Intermediate, Verified 04/22/24 11:07) Rash Iodine and Iodide Containing Produc Allergy (Intermediate, Verified 04/22/24 11:07) Rash Have you fallen in the past year?: No Nurse's Note: pt here to update Tdap, declines evaluation of recent wrist wound, only requesting vaccine. Immunizations Boostrix Tdap 2.5 Lf unit-8 mcg-5 Lf/0.5 mL intramuscular syringe Performing Provider: KIM Pan Performing Location: [facility] Administered by: Tabitha Levine on 04/22/24 11:09 Dose Route Admin Location Dispensed Lot Number Expiration Date NDC Man ufacturer 0.5 mL IM Right Deltoid 0.5 mL [id number] 05/27/26 [id number] VIS Given Date VIS Provided VIS Publication Date 04/22/24 Single Vaccine 21 Eligibility Eligibility Date Funding Source Not Applicable Assessment and Plan Assessment and Plan Orders: Orders Tdap Immunization Today Z23 - Encounter for immunization Clinical Quality Measures Falls Risk Screening/Assistive Devices Have you fallen in the past year?: No 04/22/24 1143 Date Jaclyn ALVAREZ Cosigner Signature: Date (if applicable) CC: Normal [facility] Low Dose CT Lung Screeningon 04-01-[address] Lung Screening [facility] Imaging Services [address] [place] [id number] Lung Screening MR#: [id number] Acct: [id number] Name: DINO LAWSON Rep #: [id number] : 1955 M 68 From: Ferdinand Reed MD PCP: Dr. Suresh Castillo MD Status: [facility] Study: Low Dose CT Lung Screening Date of Exam: 04/01 Exam# [id number] Ordering Dr: Suresh Castillo MD [id number] STUDY: LOW DOSE CT LUNG CANCER SCREENING REASON FOR EXAM: Male, 68 years old. Hx of nicotine RADIATION DOSAGE (If Supplied By Facility): CTDIvol = ( 3.02 ) mGy, DLP = ( 92.14 ) mGycm TECHNIQUE: No contrast was administered. Low dose technique was utilized (average mAS-38 and kVp 120). 1.25 mm axial source images with a slice interval of 1.25-mm were reconstructed in lung windows. 2.5 mm axial source images with a slice interval of 2.5-mm were reconstructed in lung windows. 5.0 mm axial source images with a slice interval of 5.0-mm were reconstructed in soft tissue windows. COMPARISON: None. NODULES: Total lung nodules (excluding granulomas): 0 Emphysema: Moderate centrilobular emphysema. Endobronchial lesion: Not present Aorta: Mild atherosclerosis CORONARY ARTERIES: Coronary artery calcification is seen. Heart: Normal size Pulmonary artery: Unremarkable for unopacified technique. Mediastinal nodes: No adenopathy. Other chest and abdominal findings: No significant incidental finding. CT/Low Dose CT Lung Screening IMPRESSION: Lung-RADS category 1 - Continue annual screening with LDCT in 12 months. IMPORTANT NOTES FOR USE: ACR Lung-RADS Version 1.1 Assessment Categories Release Date: 2018 Category: Coded 0-4 bases on nodule(s) with highest degree of suspicion. Negative screen is defined as categories 1 and 2; a positive screen is defined as categories 3 and 4. Category 3 and 4A nodules that are unchanged on interval CT should be coded as category 2, and individuals returned to screening in 12 months. Category 4X: Category 3 or 4 nodules with additional imaging findings that increase the suspicion of lung cancer, such as spiculation, GGN that doubles in size in 1 year, enlarged lymph notes, etc. Category Modifiers: S (significant finding unrelated to lung cancer) Electronically Signed: Ferdinand Reed MD ([place]oks) at 10:10 EDT Reading Location ID and State: [address] [place] [address] , Service support , CC: Dr. Suresh Castillo MD [employer]ined [employer]: Signed Normal [facility] CBC W/Diff, Automatedon 0 -2023 Absolute Lymph 1.71 X10 3/uL Normal 0.83-4.51 [facility] Comment on above: Order Comment: Order Date: 02/18/24 Order Info: [id number] - CBCD Performed By: #### L 500.4050, L501.9910, L100.0100, L500.4100 #### [facility] [address] [place], [address] Absolute Neut 5.2 X10 3/uL Normal 2.0-7.7 [facility] Comment on above: Order Comment: Order Date: 02/18/24 Order Info: [id number] - CBCD Performed By: #### L 500.4050, L501.9910, L100.0100, L500.4100 #### [facility] [address] [place], [address] Basophils/100 WBC (Bld) 0.6 % Normal 0-1 [facility] Comment on above: Order Comment: Order Date: 02/18/24 Order Info: [id number] - CBCD Performed By: #### L 500.4050, L501.9910, L100.0100, L500.4100 #### [facility] [address] [place], [address] Eosinophils/100 WBC (Bld) 2.3 % Normal 0-5 [facility] Comment on above: Order Comment: Order Date: 02/18/24 Order Info: [id number] - CBCD Performed By: #### L 500.4050, L501.9910, L100.0100, L500.4100 #### [facility] [address] [place], [address] Erythrocyte distribution width (RBC) [Ratio] 13.8 % Normal 11.6-14.6 [facility] Comment on above: Order Comment: Order Date: 02/18/24 Order Info: 018- - CBCD Performed By: #### L 500.4050, L501.9910, L100.0100, L500.4100 #### [facility] [address] [place], [address] Hematocrit (Bld) [Volume fraction] 48.3 % Normal 40-54 [facility] Comment on above: Order Comment: Order Date: 02/18/24 Order Info: [id number] - CBCD Performed By: #### L 500.4050, L501.9910, L100.0100, L500.4100 #### [facility] [address] [place], [address] Hemoglobin (Bld) [Mass/Vol] 15.3 g/dL Normal 13.0-16.5 [facility] Comment on above: Order Comment: Order Date: 02/18/24 Order Info: [id number] - CBCD Performed By: #### L 500.4050, L501.9910, L100.0100, L500.4100 #### [facility] [address] [place], [address] IG% 0.600 Normal 0.0-0.9 [facility] Comment on above: Order Comment: Order Date: 02/18/24 Order Info: [id number]- - CBCD Result Comment: IG% - Immature Granulocytes (promyelocytes, myelocytes and metamyelocytes) > 1% indicates that a LEFT SHIFT is Present. Performed By: #### L 500.4050, L501.9910, L100.0100, L500.4100 #### [facility] [address] [place], [address] Lymphocytes/100 WBC (Bld) 22.0 % Normal 19-41 [facility] Comment on above: Order Comment: Order Date: 02/18/24 Order Info: [id number] - CBCD Performed By: #### L 500.4050, L501.9910, L100.0100, L500.4100 #### [facility] [address] [place], [address] MCH (RBC) [Entitic mass] 29.3 pg Normal 27.0-32.0 [facility] Comment on above: Order Comment: Order Date: 02/18/24 Order Info: [id number]- - CBCD Performed By: #### L 500.4050, L501.9910, L100.0100, L500.4100 #### [facility] [address] [place], [address] MCHC (RBC) [Mass/Vol] 31.7 g/dL Low 32-36 [facility] Comment on above: Order Comment: Order Date: 02/18/24 Order Info: [id number]- - CBCD Performed By: #### L 500.4050, L501.9910, L100.0100, L500.4100 #### [facility] [address] [place], [address] MCV (RBC) [Entitic vol] 92.5 fL Normal 80-94 [facility] Comment on above: Order Comment: Order Date: 02/18/24 Order Info: [id number] - CBCD Performed By: #### L 500.4050, L501.9910, L100.0100, L500.4100 #### [facility] [address] [place], [address] Monocytes/100 WBC (Bld) 8.2 % Normal 0-10 [facility] Comment on above: Order Comment: Order Date: 02/18/24 Order Info: [id number] - CBCD Performed By: #### L 500.4050, L501.9910, L100.0100, L500.4100 #### [facility] [address] [place], [address] Neutrophils/100 WBC (Bld) 66.3 % Normal 47-70 [facility] Comment on above: Order Comment: Order Date: 02/18/24 Order Info: [id number] - CBCD Performed By: #### L 500.4050, L501.9910, L100.0100, L500.4100 #### [facility] [address] [place], [address] Nucleated RBC (Bld) [#/Vol] 0 10*3/uL Normal 0-5 [facility] Comment on above: Order Comment: Order Date: 02/18/24 Order Info: 018- - CBCD Performed By: #### L 500.4050, L501.9910, L100.0100, L500.4100 #### [facility] [address] [place], [address] Platelet mean volume (Bld) [Entitic vol] 10.2 fL Normal 6.2-12.0 [facility] Comment on above: Order Comment: Order Date: 02/18/24 Order Info: [id number]- - CBCD Performed By: #### L 500.4050, L501.9910, L100.0100, L500.4100 #### [facility] [address] [place], [address] Platelets (Bld) [#/Vol] 314 10*3/uL Normal 150-450 [facility] Comment on above: Order Comment: Order Date: 02/18/24 Order Info: [id number] - CBCD Performed By: #### L 500.4050, L501.9910, L100.0100, L500.4100 #### [facility] [address] [place], [address] RBC (Bld) [#/Vol] 5.22 10*6/uL Normal 4.6-6.2 [facility] Comment on above: Order Comment: Order Date: 02/18/24 Order Info: [id number] - CBCD Performed By: #### L 500.4050, L501.9910, L100.0100, L500.4100 #### [facility] [address] [place], [address] RDW SD 46.5 fl High 35.1-43.9 [facility] Comment on above: Order Comment: Order Date: 02/18/24 Order Info: [id number] - CBCD Performed By: #### L 500.4050, L501.9910, L100.0100, L500.4100 #### [facility] [address] [place], [address] WBC (Bld) [#/Vol] 7.8 10*3/uL Normal 4.4-11.0 [facility] Comment on above: Order Comment: Order Date: 02/18/24 Order Info: [id number] - CBCD Performed By: #### L 500.4050, L501.9910, L100.0100, L500.4100 #### [facility] [address] [place], [address] Comprehensive Metabolic Prof [facility] 02-21-2024 Albumin [Mass/Vol] 3.7 g/dL Normal 3.2-5.0 [facility] Comment on above: Order Comment: Order Date: 02/18/24 Order Info: [id number] - CMP Order Info: [id number] - LIPID Order Info: [id number] - PSA Performed By: #### L 500.4050, L501.9910, L100.0100, L500.4100 #### [facility] [address] [place], [address] Albumin/Globulin [Mass ratio] 1.0 {ratio} Normal 0.9-2.4 [facility] Comment on above: Order Comment: Order Date: 02/18/24 Order Info: [id number] - CMP Order Info: - LIPID Order Info: [id number] - PSA Performed By: #### L 500.4050, L501.9910, L100.0100, L500.4100 #### [facility] [address] [place], [address] ALK P 103 U/L Normal 45-117 [facility] Comment on above: Order Comment: Order Date: 02/18/24 Order Info: [id number] - CMP Order Info: - LIPID Order Info: [id number] - PSA Performed By: #### L 500.4050, L501.9910, L100.0100, L500.4100 #### [facility] [address] [place], [address] ALT [Catalytic activity/Vol] 28 U/L Normal 16-61 [facility] Comment on above: Order Comment: Order Date: 02/18/24 Order Info: [id number] - CMP Order Info: [id number] - LIPID Order Info: [id number] - PSA Performed By: #### L 500.4050, L501.9910, L100.0100, L500.4100 #### [facility] [address] [place], [address] AST [Catalytic activity/Vol] 23 U/L Normal 15-37 [facility] Comment on above: Order Comment: Order Date: 02/18/24 Order Info: 07 - CMP Order Info: [id number] - LIPID Order Info: [id number] - PSA Performed By: #### L 500.4050, L501.9910, L100.0100, L500.4100 #### [facility] [facility] [address] [place], [address] Bilirubin [Mass/Vol] 0.50 mg/dL Normal 0.20-1.00 [facility] Comment on above: Order Comment: Order Date: 02/18/24 Order Info: [id number] - CMP Order Info: - LIPID Order Info: [id number] - PSA Result Comment: For patients on eltrombopag therapy, use of Dimension [place] TBIL is not recommended. Performed By: #### L 500.4050, L501.9910, L100.0100, L500.4100 #### [facility] [address] [place], [address] BUN/CRE 22.4 RATIO High 10-20 [facility] Comment on above: Order Comment: Order Date: 02/18/24 Order Info: 785- - CMP Order Info: [id number] - LIPID Order Info: [id number] - PSA Performed By: #### L 500.4050, L501.9910, L100.0100, L500.4100 #### [facility] [address] [place], [address] CA,Total 9.1 mg/dL Normal 8.5-10.1 [facility] Comment on above: Order Comment: Order Date: 02/18/24 Order Info: 07 - CMP Order Info: [id number] - LIPID Order Info: [id number] - PSA Performed By: #### L 500.4050, L501.9910, L100.0100, L500.4100 #### [facility] [address] [place], [address] Chloride [Moles/Vol] 110 mmol/L High 98-107 [facility] Comment on above: Order Comment: Order Date: 02/18/24 Order Info: [id number] - CMP Order Info: [id number] - LIPID Order Info: [id number] - PSA Performed By: #### L 500.4050, L501.9910, L100.0100, L500.4100 #### [facility] [address] [place], [address] CO2 [Moles/Vol] 25.0 mmol/L Normal 21.0-32.0 [facility] Comment on above: Order Comment: Order Date: 02/18/24 Order Info: [id number] - CMP Order Info: - LIPID Order Info: [id number] - PSA Performed By: #### L 500.4050, L501.9910, L100.0100, L500.4100 #### [facility] [address] [place], [address] Creatinine [Mass/Vol] 0.76 mg/dL Normal 0.70-1.30 [facility] Comment on above: Order Comment: Order Date: 02/18/24 Order Info: [id number] - CMP Order Info: - LIPID Order Info: [id number] - PSA Result Comment: The validity of the calculated GFR GFRAA in patients over 70 years has not been determined. Clinical correlation is essential. Performed By: #### L 500.4050, L501.9910, L100.0100, L500.4100 #### [facility] [address] [place], [place], [address] EST GFR - AA 131 mL/min Normal >60 [facility] Comment on above: Order Comment: Order Date: 02/18/24 Order Info: [id number] - CMP Order Info: - LIPID Order Info: [id number] - PSA Result Comment: Afri can Ug[place] GFR Calc Performed By: #### L 500.4050, L501.9910, L100.0100, L500.4100 #### [facility] [address] [place], [address] GAP 8 Normal 5-15 [facility] Comment on above: Order Comment: Order Date: 02/18/24 Order Info: [id number] - CMP Order Info: - LIPID Order Info: [id number] - PSA Performed By: #### L 500.4050, L501.9910, L100.0100, L500.4100 #### [facility] [address] [place], [address] GFR/1.73 sq M.predicted among non-blacks MDRD (S/P/Bld) [Vol rate/Area] 108 mL/min/{1.73_m2} Normal >60 [facility] Comment on above: Order Comment: Order Date: 02/18/24 Order Info: [id number] - CMP Order Info: [id number] - LIPID Order Info: [id number] - PSA Result Comment: Non- GFR Calc Performed By: #### L 500.4050, L501.9910, L100.0100, L500.4100 #### [facility] [address] [place], [address] Globulin (S) [Mass/Vol] 3.6 g/dL Normal 2.2-4.2 [facility] Comment on above: Order Comment: Order Date: 02/18/24 Order Info: [id number] - CMP Order Info: [id number] - LIPID Order Info: [id number] - PSA Performed By: #### L 500.4050, L501.9910, L100.0100, L500.4100 #### [facility] [address] [place], [address] Glucose [Mass/Vol] 113 mg/dL High 74-106 [facility] Comment on above: Order Comment: Order Date: 02/18/24 Order Info: [id number]- - CMP Order Info: [id number] - LIPID Order Info: [id number] - PSA Result Comment: Fast ing Glucose result from 100 to 125 mg/dL suggests IMPAIRED HOMEOSTASIS per A.D.A. criteria. Performed By: #### L 500.4050, L501.9910, L100.0100, L500.4100 #### [facility] [address] [place], [address] Potassium [Moles/Vol] 4.3 mmol/L Normal 3.5-5.1 [facility] Comment on above: Order Comment: Order Date: 02/18/24 Order Info: [id number]- - CMP Order Info: [id number] - LIPID Order Info: [id number] - PSA Performed By: #### L 500.4050, L501.9910, L100.0100, L500.4100 #### [facility] [address] [place], [address] Sodium [Moles/Vol] 143 mmol/L Normal 136-145 [facility] Comment on above: Order Comment: Order Date: 02/18/24 Order Info: 07- - CMP Order Info: [id number] - LIPID Order Info: [id number] - PSA Performed By: #### L 500.4050, L501.9910, L100.0100, L500.4100 #### [facility] [address] [place], [address] T PROT 7.3 g/dL Normal 6.4-8.2 [facility] Comment on above: Order Comment: Order Date: 02/18/24 Order Info: [id number]- - CMP Order Info: [id number] - LIPID Order Info: [id number] - PSA Performed By: #### L 500.4050, L501.9910, L100.0100, L500.4100 #### [facility] [address] [place], [address] Urea nitrogen [Mass/Vol] 17 mg/dL Normal 7-18 [facility] Comment on above: Order Comment: Order Date: 02/18/24 Order Info: [id number]- - CMP Order Info: [id number] - LIPID Order Info: [id number] - PSA Performed By: #### L 500.4050, L501.9910, L100.0100, L500.4100 #### [facility] [address] [place], [address] Lipid Profileon 02-21-2024 Cholesterol [Mass/Vol] 133 mg/dL Normal 200 [facility] Comment on above: Order Comment: Order Date: 02/18/24 Order Info: 07 - CMP Order Info: - LIPID Order Info: [id number] - PSA Result Comment: <200 mg/dL Desirable 200-240 mg/dL Borderline >240 mg/dL High Risk Performed By: #### L 500.4050, L501.9910, L100.0100, L500.4100 #### [facility] [address] [place], [address] Cholesterol in HDL [Mass/Vol] 42 mg/dL Normal [facility] Comment on above: Order Comment: Order Date: 02/18/24 Order Info: [id number] - CMP Order Info: - LIPID Order Info: [id number] - PSA Result Comment: The drugs N-Acetylcysteine and Metamizole may falsely depress this assay. Reference Range HDL <40 mg/dL Low HDL Cholesterol HDL >or= 60 mg/dL High HDL Cholesterol Performed By: #### L 500.4050, L501.9910, L100.0100, L500.4100 #### [facility] [address] [place], [address] Cholesterol in LDL [Mass/Vol] 66 mg/dL Normal 0-130 [facility] Comment on above: Order Comment: Order Date: 02/18/24 Order Info: [id number] - CMP Order Info: - LIPID Order Info: [id number] - PSA Performed By: #### L 500.4050, L501.9910, L100.0100, L500.4100 #### [facility] [address] [place], [address] Cholesterol in VLDL [Mass/Vol] 25 mg/dL Normal 5-40 [facility] Comment on above: Order Comment: Order Date: 02/18/24 Order Info: [id number] - CMP Order Info: - LIPID Order Info: [id number] - PSA Performed By: #### L 500.4050, L501.9910, L100.0100, L500.4100 #### [facility] [address] [place], [address] Triglyceride [Mass/Vol] 127 mg/dL Normal [facility] Comment on above: Order Comment: Order Date: 02/18/24 Order Info: [id number] - CMP Order Info: [id number] - LIPID Order Info: [id number] - PSA Result Comment: The drugs N-Acetylcysteine and Metamizole may falsely depress this assay. Serum Triglycerides Reference Interval Normal <150 mg/dL Borderline high 150 - 199 mg/dL High 200 - 499 mg/dL Very High > or = 500 mg/dL Performed By: #### L 500.4050, L501.9910, L100.0100, L500.4100 #### [facility] [address] [place], [address] PSA,Total - Annual Screenon 02-21-2024 PSA,TOT SCREEN 0.48 ng/mL Normal 0.00-4.00 [facility] Comment on above: Order Comment: Order Date: 02/18/24 Order Info: [id number] - CMP Order Info: [id number] - LIPID Order Info: [id number] - PSA Result Comment: This test was performed using the TPSA assay method for the [employer] chemistry system. Values obtained with different assay methods cannot be used interchangably. When changing PSA assays in the course of monitoring a patient, additional sequential testing should be carried out to confirm baseline values. Performed By: #### L 500.4050, L501.9910, L100.0100, L500.4100 #### [facility] [address] [place], [address] Urgent Care Visit Reporton 0 12-23-2023 Urgent Care Visit Report [facility] [address], [address] [place] [address] OFFICE VISIT Date of Service: 12/23/23 MR#: [id number] Acct: [id number] Name: DINO LAWSON Rep #: [id number] 5 : 1955 Provider: NAHUN Haddad Age/Sex: 68/M Location: [facility] Status: Signed Intake Vital Signs 06/28/23 12:27 12/23/23 09:36 Height 5 ft 7 in Weight: 180 lb BMI 28.1 BP 162/83 H 136/78 H Blood Pressure Location Lt brachial Lt brachial Position Sitting Sitting Respiration 16 17 Pulse 87 78 Pulse Source Monitor NIBP Temp 97.7 F L 98.7 F Temp Source Temporal Temporal Pulse Oximetry (%) 96 96 Oxygen Delivery Method room air room air Intake Visit Reasons: Upper respiratory infection Chief Complaint: Cough, chest congestion, diarrhea Hyperbaric Technologist Required: No Is patient in pain?: No Allergies Fish Containing Products Allergy (Intermediate, Verified 12/23/23 09:40) Rash Iodine and Iodide Containing Produc Allergy (Intermediate, Verified 12/23/23 09:40) Rash Nurse's Note: dry Cough, chest congestion, diarrhea x 1 week. hx COPD but feels different. negative home covid test. PFSH Medical History Acute bronchitis, unspecified Arthritis COPD (chronic obstructive pulmonary disease) Family history of coronary artery disease Pure hypercholesterolemia Family History Father CAD (coronary artery disease) Myocardial infarction History of coronary artery bypass surgery Hypertension Mother Heart disease Hypertension Cancer Colon Brother CAD (coronary artery disease) Myocardial infarction Social History Smoking Status: Former smoker alcohol intake: current details: Occasional substance use type: does not use caffeine: Yes Type: coffee Number of servings: 2 HPI HPI Chief Complaint: Cough, chest congestion, diarrhea Details: DINO LAWSON, is a 68 M who presents to the office today for complaint of cough, chest congestion and minimal diarrhea no focal 5 to 6 days. Patient denies fever, chills, sweats. No hemoptysis, shortness of breath or difficulty breathing. No nausea, vomiting or diarrhea. No loss of taste or smell. Patient does have a history of COPD. No other associated symptoms or alleviating/aggravating factors. ROS Const Constitutional: No other (As above) Exam Const General: cooperative and well developed HENMI Head: normal to inspection and atraumatic Ears: hearing grossly normal bilaterally Nose: nasal discharge clear Face and sinus: normal facial exam Mouth: oral mucosae normal Throat: abnormal tonsil bilaterally hypertrophy 1+ Resp Effort Inspection: normal respiratory effort and no audible wheezes Auscultation: Bilateral: Clear to Auscultation Cardio Palpation: normal PMI Rate: regular rate Rhythm: regular rhythm Neuro General: patient alert and CN's II-XI intact bilaterally Psych Appearance: grossly normal Mental Status: mental status grossly normal Coding Level of Care Code No Charge Diagnoses Upper respiratory infection J06.9 Assessment and Plan Assessment and Plan (1) Upper respiratory infection: Medications: New azithromycin take 500 mg today (day 1), then 250 mg for 4 days (days 2-5) PO 6 tabs 0RF methylprednisolone (Medrol (Chad)) 4 mg PO PER PKG DIR 21 tabs 0RF 6 days albuterol sulfate 90 mcg/actuation 2 puffs inhalation Q4-6H PRN 6.7 grams 0RF shortness of breath or wheezing Plan Azithromycin, Medrol Dosepak and albuterol as prescribed today. Encouraged to get plenty of rest, drink lots of clear liquids, and use Tylenol or Ibuprofen (unless contraindicated) for fever and comfort. Patient also educated on other symptomatic management techniques. To be seen in 7-10 days if no improvement; sooner if worsening of symptoms. Patient advised of potential red flags and when appropriate to report to the ED. Patient verbalized understanding and agreement with all the above. 12/23/23 1453 Date Cain Gordon Signature: Date (if applicable) CC: Normal [facility] CBC W Auto Differential pane l (Bld)on 01-26-2022 Basophils (Bld) [#/Vol] 0.05 10*3/uL Normal <0.11 [facility] Comment on above: Order Comment: Speci men Type: BLOOD SPECIMEN Ordering Facility: [facility] Address: [address] [place] [address], [place] [address] Performed By: #### 5 7021-8 #### [facility] CLIA [id number] [address] [place] [address] [place] Basophils/100 WBC (Bld) 0.7 % Normal [facility] Comment on above: Order Comment: Speci men Type: BLOOD SPECIMEN Ordering Facility: [facility] Address: [address] [place] [address] Performed By: #### 5 7021-8 #### [facility] CLIA [id number] [address] [place] [address] [place] Differential cell count method Nom (Bld) Auto Normal [facility] Comment on above: Order Comment: Speci men Type: BLOOD SPECIMEN Ordering Facility: [facility] Address: [address] [place] [address] Performed By: #### 5 7021-8 #### [facility] CLIA [id number] [facility] [place] [address] [place] Eosinophils (Bld) [#/Vol] 0.19 10*3/uL Normal <0.46 [facility] Comment on above: Order Comment: Speci men Type: BLOOD SPECIMEN Ordering Facility: [facility] Address: [address] [place] [address] Performed By: #### 5 7021-8 #### [facility] CLIA [id number] [address] [place] [address] [place] Eosinophils/100 WBC (Bld) 2.6 % Normal [facility] Comment on above: Order Comment: Speci men Type: BLOOD SPECIMEN Ordering Facility: [facility] Address: [address] [place] [address] Performed By: #### 5 7021-8 #### [facility] CLIA [id number] [address] [place] [address] [place] Erythrocyte distribution width (RBC) [Ratio] 14.0 % Normal 11.5-15.0 [facility] Comment on above: Order Comment: Speci men Type: BLOOD SPECIMEN Ordering Facility: [facility] Address: [address] [place] [address] Performed By: #### 5 7021-8 #### [facility] CLIA [id number] [address] [place] [address] [place] Hematocrit (Bld) [Volume fraction] 48.7 % Normal 39.0-51.0 [facility] Comment on above: Order Comment: Speci men Type: BLOOD SPECIMEN Ordering Facility: [facility] Address: [address] [place] [address] Performed By: #### 5 7021-8 #### [facility] CLIA [id number] [address] [place] [address] [place] Hemoglobin (Bld) [Mass/Vol] 14.9 g/dL Normal 13.0-17.0 [facility] Comment on above: Order Comment: Speci men Type: BLOOD SPECIMEN Ordering Facility: [facility] Address: [address] [place] [address] Performed By: #### 5 7021-8 #### [facility] CLIA [id number] [address] [place] [address] [place] IMMATURE GRAN % 0.4 % Normal [facility] Comment on above: Order Comment: Speci men Type: BLOOD SPECIMEN Ordering Facility: [facility] Address: [address] [place] [address] Performed By: #### 5 7021-8 #### [facility] CLIA [id number] [address] [place] [address] [place] IMMATURE GRAN ABS 0.03 k/uL Normal <0.10 [facility] Comment on above: Order Comment: Speci men Type: BLOOD SPECIMEN Ordering Facility: [facility] Address: [address] [place] [address] Performed By: #### 5 7021-8 #### [facility] CLIA [id number] [address] [place] [address] [place] Lymphocytes (Bld) [#/Vol] 1.80 10*3/uL Normal 1.00-4.00 [facility] Comment on above: Order Comment: Speci men Type: BLOOD SPECIMEN Ordering Facility: [facility] Address: [address] [place] [address] Performed By: #### 5 7021-8 #### [facility] CLIA [id number] [address] [place] [address] [place] Lymphocytes/100 WBC (Bld) 24.3 % Normal [facility] Comment on above: Order Comment: Speci men Type: BLOOD SPECIMEN Ordering Facility: [facility] Address: [address] [place] [address] Performed By: #### 5 7021-8 #### [facility] CLIA [id number] [address] [place] [address] [place] MCH (RBC) [Entitic mass] 28.7 pg Normal 26.0-34.0 [facility] Comment on above: Order Comment: Speci men Type: BLOOD SPECIMEN Ordering Facility: [facility] Address: [address] [place] [address] Performed By: #### 5 7021-8 #### [facility] CLIA [id number] [address] [place] [address] [place] MCHC (RBC) [Mass/Vol] 30.6 g/dL Normal 30.5-36.0 [facility] Comment on above: Order Comment: Speci men Type: BLOOD SPECIMEN Ordering Facility: [facility] Address: [address] [place] [address] Performed By: #### 5 7021-8 #### [facility] CLIA [id number] [address] [id number] [address] [place] MCV (RBC) [Entitic vol] 93.7 fL Normal 80.0-100.0 [facility] Comment on above: Order Comment: Speci men Type: BLOOD SPECIMEN Ordering Facility: [facility] Address: [address] [place] [address] Performed By: #### 5 7021-8 #### [facility] CLIA [id number] [address] [place] [address] [place] Monocytes (Bld) [#/Vol] 0.62 10*3/uL Normal <0.87 [facility] Comment on above: Order Comment: Speci men Type: BLOOD SPECIMEN Ordering Facility: [facility] Address: [address] [place] [address], [place] [address] Performed By: #### 5 7021-8 #### [facility] CLIA [id number] [address] [place] [address] [place] Monocytes/100 WBC (Bld) 8.4 % Normal [facility] Comment on above: Order Comment: Speci men Type: BLOOD SPECIMEN Ordering Facility: [facility] Address: [address] [place] [address] Performed By: #### 5 7021-8 #### [facility] CLIA [id number] [address] [place] [address] [place] Neutrophils (Bld) [#/Vol] 4.73 10*3/uL Normal 1.45-7.50 [facility] Comment on above: Order Comment: Speci men Type: BLOOD SPECIMEN Ordering Facility: [facility] Address: [address] [place] [address] Performed By: #### 5 7021-8 #### [facility] CLIA [id number] [address] [place] [address] [place] Neutrophils/100 WBC (Bld) 63.6 % Normal [facility] Comment on above: Order Comment: Speci men Type: BLOOD SPECIMEN Ordering Facility: [facility] Address: [address] [place] [address], [place] [address] Performed By: #### 5 7021-8 #### [facility] CLIA [id number] [address] [place] [address] [place] Nucleated RBC (Bld) [#/Vol] 10*3/uL Normal <0.01 [facility] Comment on above: Order Comment: Speci men Type: BLOOD SPECIMEN Ordering Facility: [facility] Address: [address] [place] [address] Performed By: #### 5 7021-8 #### [facility] CLIA [id number] [address] [place] [address] [place] Nucleated RBC/100 WBC (Bld) [Ratio] 0.0 /100 WBC Normal [facility] Comment on above: Order Comment: Speci men Type: BLOOD SPECIMEN Ordering Facility: [facility] Address: [address] [place] [address] Performed By: #### 5 7021-8 #### [facility] CLIA [id number] [address] [place] [address] [place] Platelet mean volume (Bld) [Entitic vol] 10.1 fL Normal 9.0-12.7 [facility] Comment on above: Order Comment: Speci men Type: BLOOD SPECIMEN Ordering Facility: [facility] Address: [address] [place] [address] Performed By: #### 5 7021-8 #### [facility] CLIA [id number] [address] [place] [address] [place] Platelets (Bld) [#/Vol] 359 10*3/uL Normal 150-400 [facility] Comment on above: Order Comment: Speci men Type: BLOOD SPECIMEN Ordering Facility: [facility] Address: [address] [place] [address] Performed By: #### 5 7021-8 #### [facility] CLIA [id number] [address] [place] [address] [place] RBC (Bld) [#/Vol] 5.20 10*6/uL Normal 4.20-6.00 [facility] Comment on above: Order Comment: Speci men Type: BLOOD SPECIMEN Ordering Facility: [facility] Address: [address] [place] [address], [place] [address] Performed By: #### 5 7021-8 #### [facility] CLIA [id number] [address] [place] [address] [place] WBC (Bld) [#/Vol] 7.42 10*3/uL Normal 3.70-11.00 [facility] Comment on above: Order Comment: Speci men Type: BLOOD SPECIMEN Ordering Facility: [facility] Address: [address] [place] [address], [place] [address] Performed By: #### 5 7021-8 #### [facility] CLIA [id number] [address] [place] [address] [place] Comprehensive metabolic 2000 panelon 01-26-2022 Albumin [Mass/Vol] 4.3 g/dL Normal 3.9-4.9 [facility] Comment on above: Order Comment: Speci men Type: BLOOD SPECIMEN Ordering Facility: [facility] Address: [address] [place] [address], [place] [address] Performed By: #### 2 4323-8, 06205-5 #### [facility] CLIA [id number] [address] [place] [address] [place] ALP [Catalytic activity/Vol] 104 U/L Normal 38-113 [facility] Comment on above: Order Comment: Speci men Type: BLOOD SPECIMEN Ordering Facility: [facility] Address: [address] [place] [address], [place] [address] Performed By: #### 2 4323-8, 37336-7 #### [facility] CLIA [id number] [address] [place] [address] [place] ALT [Catalytic activity/Vol] 22 U/L Normal 10-54 [facility] Comment on above: Order Comment: Speci men Type: BLOOD SPECIMEN Ordering Facility: [facility] Address: [address] [place] [address], [place] [address] Performed By: #### 2 4323-8, 43994-0 #### [facility] CLIA [id number] [address] [place] [address] [place] Anion gap [Moles/Vol] 10 mmol/L Normal 9-18 [facility] Comment on above: Order Comment: Speci men Type: BLOOD SPECIMEN Ordering Facility: [facility] Address: [address] [place] [address], [place] [address] Performed By: #### 2 4323-8, 14809-7 #### [facility] CLIA [id number] [address] [place] [address] [place] AST [Catalytic activity/Vol] 25 U/L Normal 14-40 [facility] Comment on above: Order Comment: Speci men Type: BLOOD SPECIMEN Ordering Facility: [facility] Address: [address] [place] [address], [place] [address] Performed By: #### 2 4323-8, 57671-4 #### [facility] CLIA [id number] [address] [place] [address] [place] Bilirubin [Mass/Vol] 0.4 mg/dL Normal 0.2-1.3 [facility] Comment on above: Order Comment: Speci men Type: BLOOD SPECIMEN Ordering Facility: [facility] Address: [address] [place] [address], [place] [address] Performed By: #### 2 4323-8, 30930-8 #### [facility] CLIA [id number] [address] [place] [id number] [place] Calcium [Mass/Vol] 9.6 mg/dL Normal 8.5-10.2 [facility] Comment on above: Order Comment: Speci men Type: BLOOD SPECIMEN Ordering Facility: [facility] Address: [address], [place] [address] Performed By: #### 2 4323-8, 47960-4 #### [facility] CLIA [id number] [address] [place] [address] [place] Chloride [Moles/Vol] 105 mmol/L Normal 97-105 [facility] Comment on above: Order Comment: Speci men Type: BLOOD SPECIMEN Ordering Facility: [facility] Address: [address] [place] [address], [place] [address] Performed By: #### 2 4323-8, 83505-9 #### [facility] CLIA [id number] [address] [place] [address] [place] CO2 [Moles/Vol] 26 mmol/L Normal 22-30 [facility] Comment on above: Order Comment: Speci men Type: BLOOD SPECIMEN Ordering Facility: [facility] Address: [address] [place] [address], [place] [address] Performed By: #### 2 4323-8, 15708-7 #### [facility] CLIA [id number] [address] [place] [address] [place] Creatinine [Mass/Vol] 0.80 mg/dL Normal 0.73-1.22 [facility] Comment on above: Order Comment: Speci men Type: BLOOD SPECIMEN Ordering Facility: [facility] Address: [address] [place] [address], [place] [address] Performed By: #### 2 4323-8, 54661-8 #### [facility] CLIA [id number] [address] [place] [address] [place] ESTIMATED GLOMERULAR FILTRATION RATE 97 mL/min/1.73m??? Normal >=60 [facility] Comment on above: Order Comment: Speci men Type: BLOOD SPECIMEN Ordering Facility: [facility] Address: [address] [place] [address], [place] [address] Result Comment: Day mated Glomerular Filtration Rate (eGFR) is calculated using the 2020 CKD-EPI creatinine equation. This equation utilizes serum creatinine, sex, and age as parameters. The creatinine assay has traceable calibration to isotope dilution-mass spectrometry. Refer to KDIGO guidelines for clinical interpretation. In patients with unstable renal function, e.g. those with acute kidney injury, the eGFR may not accurately reflect actual GFR. Performed By: #### 2 4323-8, 28384-4 #### [facility] CLIA [id number] [address] [place] [address] [place] Glucose [Mass/Vol] 89 mg/dL Normal 74-99 [facility] Comment on above: Order Comment: Specjerel velez Type: BLOOD SPECIMEN Ordering Facility: [facility] Address: [address] [place] [address] Result Comment: The [place] [employer] (ADA) provides guidance for cutoff values for fasting glucose and random glucose. The ADA defines fasting as no caloric intake for at least 8 hours. Fasting plasma glucose results between 100 to 125 mg/dL indicate increased risk for diabetes (prediabetes). Fasting plasma glucose results greater than or equal to 126 mg/dL meet the criteria for diagnosis of diabetes. In the absence of unequivocal hyperglycemia, results should be confirmed by repeat testing. In a patient with classic symptoms of hyperglycemia or hyperglycemic crisis, random plasma glucose results greater than or equal to 200 mg/dL meet the criteria for diagnosis of diabetes. Reference: Standards of Medical Care in Diabetes 2016, [place] [employer]. Diabetes Care. 2016.39(Suppl 1). Performed By: #### 2 4323-8, 47168-4 #### [facility] CLIA [id number] [address] [place] [address] [place] Potassium [Moles/Vol] 3.9 mmol/L Normal 3.7-5.1 [facility] Comment on above: Order Comment: Fito velez Type: BLOOD SPECIMEN Ordering Facility: [facility] Address: [address] [place] [address], [place] [address] Performed By: #### 2 4323-8, 05173-3 #### [facility] CLIA [id number] [address] [place] [address] [place] Protein [Mass/Vol] 7.0 g/dL Normal 6.3-8.0 [facility] Comment on above: Order Comment: Speci men Type: BLOOD SPECIMEN Ordering Facility: [facility] Address: [address] [place] [address] Performed By: #### 2 4323-8, 75072-6 #### [facility] CLIA [id number] [address] [place] [address] [place] Sodium [Moles/Vol] 141 mmol/L Normal 136-144 [facility] Comment on above: Order Comment: Speci men Type: BLOOD SPECIMEN Ordering Facility: [facility] Address: [address] [place] [address] Performed By: #### 2 4323-8, 56142-3 #### [facility] CLIA [id number] [address] [place] [address] [place] Urea nitrogen [Mass/Vol] 19 mg/dL Normal 9-24 [facility] Comment on above: Order Comment: Speci men Type: BLOOD SPECIMEN Ordering Facility: [facility] Address: [address] [place] [address], [place] [address] Performed By: #### 2 4323-8, 02024-0 #### [facility] CLIA [id number] [address] [place] [address] [place] Lipid 1996 panelon 2 Cholesterol [Mass/Vol] 134 mg/dL Normal <200 [facility] Comment on above: Order Comment: Speci men Type: BLOOD SPECIMEN Ordering Facility: [facility] Address: [address] [place] [address] Result Comment: <200 mg/dL, Desirable 200-239 mg/dL, Borderline high >239 mg/dL, High Performed By: #### 2 4323-8, 42520-2 #### [facility] CLIA [id number] [address] [place] Cholesterol in HDL [Mass/Vol] 39 mg/dL Low >39 [facility] Comment on above: Order Comment: Fito velez Type: BLOOD SPECIMEN Ordering Facility: [facility] Address: [address] [place] [address] Result Comment: 40-5 9 mg/dL, Acceptable >59 mg/dL, High: Negative risk factor for coronary heart disease <40 mg/dL, Low: Positive risk factor for coronary heart disease Performed By: #### 2 4323-8, 94345-2 #### [facility] CLIA [id number] [address] [facility] Cholesterol in LDL [Mass/Vol] 80 mg/dL Normal <100 [facility] Comment on above: Order Comment: Fito [facility] Type: BLOOD SPECIMEN Ordering Facility: [facility] Address: [address] [place] [address], [place] [address] Result Comment: <100 mg/dL, Optimal 100-129 mg/dL, Near optimal/above optimal 130-159 mg/dL, Borderline high 160-189 mg/dL, High >189 mg/dL, Very high Secondary prevention optimal LDL Cholesterol levels are recommended to be < 70 mg/dL Performed By: #### 2 4323-8, 25279-8 #### [facility] CLIA [id number] [address] [facility] Cholesterol in LDL/Cholesterol in HDL [Mass ratio] 2.05 {ratio} Normal <2.54 [facility] Comment on above: Order Comment: [facility] Type: BLOOD SPECIMEN Ordering Facility: [facility] Address: [address] [place] [address] Result Comment: Randy torres: 1. National Cholesterol Education Program ATP III Guideline At-A-Glance Quick Desk Reference: National Heart, Lung, and Blood [place]. National Institutes of Health. 2001: NIH Publication No. 01-3305. 2. An International Atherosclerosis Society position paper: global recommendations for the management of dyslipidemia: executive summary, Atherosclerosis. 2014: 232(2):410-413. Performed By: #### 2 4323-8, 79033-0 #### [facility] CLIA [id number] [address] [place] [address] [place] Cholesterol in VLDL [Mass/Vol] 15 mg/dL Normal <30 [facility] Comment on above: Order Comment: Speci men Type: BLOOD SPECIMEN Ordering Facility: [facility] Address: [address] [place] [address] Performed By: #### 2 4323-8, 44207-6 #### [facility] CLIA [id number] [address] [place] [address] [place] Cholesterol non HDL [Mass/Vol] 95 mg/dL Normal <130 [facility] Comment on above: Order Comment: Rossyi men Type: BLOOD SPECIMEN Ordering Facility: [facility] Address: [address] [place] [address], [place] [address] Result Comment: <130 mg/dL, Optimal 130-159 mg/dL, Near optimal/above optimal 160-189 mg/dL, Borderline high 190-219 mg/dL, High >219 mg/dL, Very high Secondary prevention optimal non HDL Cholesterol levels are recommended to be <100 mg/dL Performed By: #### 2 4323-8, 70786-1 #### [facility] CLIA [id number] [address] [place] [address] [place] Cholesterol.total/C holesterol in HDL [Mass ratio] 3.44 {ratio} Normal <5.10 [facility] Comment on above: Order Comment: Speci men Type: BLOOD SPECIMEN Ordering Facility: [facility] Address: [address] [place] [address], [place] [address] Performed By: #### 2 4323-8, 26298-7 #### [facility] CLIA [id number] [address] [place] [place] [id number] [place] FASTING TIME 11 hrs Normal [facility] Comment on above: Order Comment: Speci men Type: BLOOD SPECIMEN Ordering Facility: [facility] Address: [address], [place] [id number] Performed By: #### 2 4323-8, 63540-4 #### [facility] CLIA [id number] [address] [place] [address] [place] Triglyceride [Mass/Vol] 76 mg/dL Normal <150 [facility] Comment on above: Order Comment: Speci men Type: BLOOD SPECIMEN Ordering Facility: [facility] Address: [address], [place] [id number] Result Comment: <150 mg/dL, Normal 150-199 mg/dL, Borderline high 200-499 mg/dL, High >499 mg/dL, Very high Performed By: #### 2 4323-8, 92515-1 #### [facility] CLIA [id number] [address] [place] [address] [place] Helico pylori Abon 1 H pylori Ab, IgG 0.4 U/mL Normal [facility] Comment on above: Performed By: #### H BA1C, CBCDIF, CMP, MICRO, FT4, MG1, LIPB, TSH #### [facility] [address] [place] [address] #### HPYLRI #### [facility]ology [address] [place] [address] H. pylori IgG, Qual Negative Normal Negative [facility] Comment on above: Performed By: #### H BA1C, CBCDIF, CMP, MICRO, FT4, MG1, LIPB, TSH #### [facility] [address] [place] [address] #### HPYLRI #### [facility] [address] [place] [address] B Natriuretic Peptidon 06-25 B Natriuretic Peptid 8 pg/mL Normal 0-99 [facility] Comment on above: Performed By: #### H BA1C, CBCDIF, CMP, MICRO, FT4, MG1, LIPB, TSH #### [facility] [address] [place] [phone] #### HPYLRI #### [facility]ology [address] [place] [phone] CBC and Differentialon 06-24 Abs Baso 0.05 k/uL Normal <0.11 [facility] Comment on above: Performed By: #### H BA1C, CBCDIF, CMP, MICRO, FT4, MG1, LIPB, TSH #### [facility] [address] [place] [phone] #### HPYLRI #### [facility]ology [address] [place], [place] [phone] Abs Linn 0.62 k/uL Normal <0.87 [facility] Comment on above: Performed By: #### H BA1C, CBCDIF, CMP, MICRO, FT4, MG1, LIPB, TSH #### [facility] [address] [place] [phone] #### HPYLRI #### [facility] [address] [place] [phone] Abs Neut 5.21 k/uL Normal 1.45-7.50 [facility] Comment on above: Performed By: #### H BA1C, CBCDIF, CMP, MICRO, FT4, MG1, LIPB, TSH #### [facility] [address] [place] [phone] #### HPYLRI #### [facility] [address] [place] [phone] Absolute nRBC <0.01 Normal <0.01 [facility] Comment on above: Performed By: #### H BA1C, CBCDIF, CMP, MICRO, FT4, MG1, LIPB, TSH #### [facility] [address] [place] [address] #### HPYLRI #### [facility] [address] [place] [phone] Basophils/100 WBC (Bld) 0.6 % Normal [facility] Comment on above: Performed By: #### H BA1C, CBCDIF, CMP, MICRO, FT4, MG1, LIPB, TSH #### [facility] [address] [place] [phone] #### HPYLRI #### [facility]ology [address] [place] [address] DTYPE ADIFF Normal [facility] Comment on above: Performed By: #### H BA1C, CBCDIF, CMP, MICRO, FT4, MG1, LIPB, TSH #### [facility] [address] [place] [address] #### HPYLRI #### [facility] [address] [place] [phone] Eosinophils (Bld) [#/Vol] 0.32 10*3/uL Normal <0.46 [facility] Comment on above: Performed By: #### H BA1C, CBCDIF, CMP, MICRO, FT4, MG1, LIPB, TSH #### [facility] [address] [place] [address] #### HPYLRI #### [facility] [address] [place] [phone] Eosinophils/100 WBC (Bld) 4.0 % Normal [facility] Comment on above: Performed By: #### H BA1C, CBCDIF, CMP, MICRO, FT4, MG1, LIPB, TSH #### [facility] [address] [place] [address] #### HPYLRI #### [facility] [address] [place] [address] Erythrocyte distribution width (RBC) [Ratio] 13.5 % Normal 11.5-15.0 [facility] Comment on above: Performed By: #### H BA1C, CBCDIF, CMP, MICRO, FT4, MG1, LIPB, TSH #### [facility] [address] [place] [address] #### HPYLRI #### [facility] [address] [place] [address] Hematocrit (Bld) [Volume fraction] 49.0 % Normal 39.0-51.0 [facility] Comment on above: Performed By: #### H BA1C, CBCDIF, CMP, MICRO, FT4, MG1, LIPB, TSH #### [facility] [address] [place] [address] #### HPYLRI #### [facility] [address] [place] [address] Hemoglobin (Bld) [Mass/Vol] 15.2 g/dL Normal 13.0-17.0 [facility] Comment on above: Performed By: #### H BA1C, CBCDIF, CMP, MICRO, FT4, MG1, LIPB, TSH #### [facility] [address] [place] [address] #### HPYLRI #### [facility] [address] [place] [address] Lymphocytes (Bld) [#/Vol] 1.87 10*3/uL Normal 1.00-4.00 [facility] Comment on above: Performed By: #### H BA1C, CBCDIF, CMP, MICRO, FT4, MG1, LIPB, TSH #### [facility] [address] [place] [address] #### HPYLRI #### [facility] [address] [place] [address] Lymphocytes/100 WBC (Bld) 23.2 % Normal [facility] Comment on above: Performed By: #### H BA1C, CBCDIF, CMP, MICRO, FT4, MG1, LIPB, TSH #### [facility] [address] [place] [address] #### HPYLRI #### [facility] [address] [place] [address] MCH 29.2 pG Normal 26.0-34.0 [facility] Comment on above: Performed By: #### H BA1C, CBCDIF, CMP, MICRO, FT4, MG1, LIPB, TSH #### [facility] [address] [place] [address] #### HPYLRI #### [facility]ology [address] [place], [place] [phone] MCHC (RBC) [Mass/Vol] 31.0 g/dL Normal 30.5-36.0 [facility] Comment on above: Performed By: #### H BA1C, CBCDIF, CMP, MICRO, FT4, MG1, LIPB, TSH #### [facility] [address] [place] [address] #### HPYLRI #### [facility] [address] [place], [place] [phone] MCV (RBC) [Entitic vol] 94.0 fL Normal 80.0-100.0 [facility] Comment on above: Performed By: #### H BA1C, CBCDIF, CMP, MICRO, FT4, MG1, LIPB, TSH #### [facility] [address] [place] [phone] #### HPYLRI #### [facility] [address] [place] [phone] Monocytes/100 WBC (Bld) 7.7 % Normal [facility] Comment on above: Performed By: #### H BA1C, CBCDIF, CMP, MICRO, FT4, MG1, LIPB, TSH #### [facility] [address] [place] [phone] #### HPYLRI #### [facility] [address] [place] [phone] Neutrophils/100 WBC (Bld) 64.5 % Normal [facility] Comment on above: Performed By: #### H BA1C, CBCDIF, CMP, MICRO, FT4, MG1, LIPB, TSH #### [facility] [address] [place] [phone] #### HPYLRI #### [facility] [address] [place] [phone] NRBCs 0.0 /100 WBC Normal 0 [facility] Comment on above: Performed By: #### H BA1C, CBCDIF, CMP, MICRO, FT4, MG1, LIPB, TSH #### [facility] [address] [place] [phone] #### HPYLRI #### [facility] [address] [place] [phone] Platelet mean volume (Bld) [Entitic vol] 10.2 fL Normal 9.0-12.7 [facility] Comment on above: Performed By: #### H BA1C, CBCDIF, CMP, MICRO, FT4, MG1, LIPB, TSH #### [facility] [address] [place] [phone] #### HPYLRI #### [facility]ology [address] [place] [address] Platelets (Bld) [#/Vol] 335 10*3/uL Normal 150-400 [facility] Comment on above: Performed By: #### H BA1C, CBCDIF, CMP, MICRO, FT4, MG1, LIPB, TSH #### [facility] [address] [place] [phone] #### HPYLRI #### [facility]ology [address] [place] [address] RBC (Bld) [#/Vol] 5.21 10*6/uL Normal 4.20-6.00 [facility] Comment on above: Performed By: #### H BA1C, CBCDIF, CMP, MICRO, FT4, MG1, LIPB, TSH #### [facility] [address] [place] [phone] #### HPYLRI #### [facility] [address] [place] [address] WBC (Bld) [#/Vol] 8.07 10*3/uL Normal 3.70-11.00 [facility] Comment on above: Performed By: #### H BA1C, CBCDIF, CMP, MICRO, FT4, MG1, LIPB, TSH #### [facility] Lab [address] [place] [phone] #### HPYLRI #### [facility]ology [address] [place] [address] Comp Metabolic Panelon 06-24 Albumin [Mass/Vol] 4.3 g/dL Normal 3.9-4.9 [facility] Comment on above: Performed By: #### H BA1C, CBCDIF, CMP, MICRO, FT4, MG1, LIPB, TSH #### [facility] Routine Lab [address] [place] [phone] #### HPYLRI #### [facility] Immunology [address] [place] [phone] ALP [Catalytic activity/Vol] 116 U/L High 38-113 [facility] Comment on above: Performed By: #### H BA1C, CBCDIF, CMP, MICRO, FT4, MG1, LIPB, TSH #### [facility]ine Lab [address] [place] [phone] #### HPYLRI #### [facility]ology [address] [place] [phone] ALT [Catalytic activity/Vol] 22 U/L Normal 10-54 [facility] Comment on above: Performed By: #### H BA1C, CBCDIF, CMP, MICRO, FT4, MG1, LIPB, TSH #### [facility]ine Lab [address] [place] [phone] #### HPYLRI #### [facility] [address] [place] [phone] Anion gap [Moles/Vol] 11 mmol/L Normal 9-18 [facility] Comment on above: Performed By: #### H BA1C, CBCDIF, CMP, MICRO, FT4, MG1, LIPB, TSH #### [facility] Lab [address] [place] [phone] #### HPYLRI #### [facility]ology [address] [place] [phone] AST [Catalytic activity/Vol] 25 U/L Normal 14-40 [facility] Comment on above: Performed By: #### H BA1C, CBCDIF, CMP, MICRO, FT4, MG1, LIPB, TSH #### [facility] Lab [address] [place] [phone] #### HPYLRI #### [facility] Immunology [address] [place] [address] Bilirubin [Mass/Vol] 0.3 mg/dL Normal 0.2-1.3 [facility] Comment on above: Performed By: #### H BA1C, CBCDIF, CMP, MICRO, FT4, MG1, LIPB, TSH #### [facility]ine Lab [address] [place] [address] #### HPYLRI #### [facility] Immunology [address] [place] [address] Calcium [Mass/Vol] 9.9 mg/dL Normal 8.5-10.2 [facility] Reference Lab Comment on above: Performed By: #### H BA1C, CBCDIF, CMP, MICRO, FT4, MG1, LIPB, TSH #### [facility] Routine Lab [address] [place] [phone] #### HPYLRI #### [facility] Immunology [address] [place], [place] [id number] Chloride [Moles/Vol] 104 mmol/L Normal 97-105 [facility] Reference Lab Comment on above: Performed By: #### H BA1C, CBCDIF, CMP, MICRO, FT4, MG1, LIPB, TSH #### [facility] Routine Lab [address] [place] [phone] #### HPYLRI #### [facility] Immunology [address] [place] [address] CO2 [Moles/Vol] 26 mmol/L Normal 22-30 [facility] Reference Lab Comment on above: Performed By: #### H BA1C, CBCDIF, CMP, MICRO, FT4, MG1, LIPB, TSH #### [facility] Routine Lab [address] [place] [phone] #### HPYLRI #### [facility] Immunology [address] [place] [address] Creatinine [Mass/Vol] 0.72 mg/dL Low 0.73-1.22 [facility] Reference Lab Comment on above: Performed By: #### H BA1C, CBCDIF, CMP, MICRO, FT4, MG1, LIPB, TSH #### [facility] Routine Lab [address] [place] [address] #### HPYLRI #### [facility] Immunology [address] [place] [address] eGFR- Amer. >60 Normal [facility] Reference Lab Comment on above: Performed By: #### H BA1C, CBCDIF, CMP, MICRO, FT4, MG1, LIPB, TSH #### [facility] Routine Lab [address] [place] [phone] #### HPYLRI #### [facility] Immunology [address] [place] [phone] eGFR-All Other Races >60 Normal [facility] Reference Lab Comment on above: Performed By: #### H BA1C, CBCDIF, CMP, MICRO, FT4, MG1, LIPB, TSH #### [facility] Routine Lab [address] [place] [phone] #### HPYLRI #### [facility] Immunology [address] [place] [phone] Glucose [Mass/Vol] 79 mg/dL Normal 74-99 [facility] Reference Lab Comment on above: Performed By: #### H BA1C, CBCDIF, CMP, MICRO, FT4, MG1, LIPB, TSH #### [facility] Routine Lab [address] [place] [phone] #### HPYLRI #### [facility] Immunology [address] [place] [address] Potassium [Moles/Vol] 4.1 mmol/L Normal 3.7-5.1 [facility] Reference Lab Comment on above: Performed By: #### H BA1C, CBCDIF, CMP, MICRO, FT4, MG1, LIPB, TSH #### [facility] Routine Lab [address] [place] [address] #### HPYLRI #### [facility] Immunology [address] [place] [address] Protein [Mass/Vol] 7.1 g/dL Normal 6.3-8.0 [facility] Reference Lab Comment on above: Performed By: #### H BA1C, CBCDIF, CMP, MICRO, FT4, MG1, LIPB, TSH #### [facility] Routine Lab [address] [place] [address] #### HPYLRI #### [facility] Immunology [address] [place] [address] Sodium [Moles/Vol] 141 mmol/L Normal 136-144 [facility] Reference Lab Comment on above: Performed By: #### H BA1C, CBCDIF, CMP, MICRO, FT4, MG1, LIPB, TSH #### [facility] Routine Lab [address] [place] [address] #### HPYLRI #### [facility] Immunology [address] [place], [place] [phone] Urea nitrogen [Mass/Vol] 17 mg/dL Normal 9-24 [facility] Reference Lab Comment on above: Performed By: #### H BA1C, CBCDIF, CMP, MICRO, FT4, MG1, LIPB, TSH #### [facility] Routine Lab [address] [place] [address] #### HPYLRI #### [facility] Immunology [address] [place] [phone] Free T4on 06-24-2021 Free T4 [Mass/Vol] 1.2 ng/dL Normal 0.9-1.7 [facility] Reference Lab Comment on above: Performed By: #### H BA1C, CBCDIF, CMP, MICRO, FT4, MG1, LIPB, TSH #### [facility] Routine Lab [address] [place], [place] [address] #### HPYLRI #### [facility] Immunology [address] [place] [address] Hemoglobin A1con 06-24-2021 Glucose [Mass/Vol] 128 mg/dL Normal [facility] Reference Lab Comment on above: Performed By: #### H BA1C, CBCDIF, CMP, MICRO, FT4, MG1, LIPB, TSH #### [facility] Routine Lab [address] [place] [address] #### HPYLRI #### [facility] Immunology [address] [place] [address] HbA1c (Bld) [Mass fraction] 6.1 % High 4.3-5.6 [facility] Reference Lab Comment on above: Performed By: #### H BA1C, CBCDIF, CMP, MICRO, FT4, MG1, LIPB, TSH #### [facility] Routine Lab [address] [place] [address] #### HPYLRI #### [facility] Immunology [address] [place] [address] Lipid Panel, Basicon 021 Cholesterol [Mass/Vol] 140 mg/dL Normal <200 [facility] Reference Lab Comment on above: Performed By: #### H BA1C, CBCDIF, CMP, MICRO, FT4, MG1, LIPB, TSH #### [facility] Routine Lab [address] [place] [address] #### HPYLRI #### [facility] Immunology [address] [place] [address] Cholesterol in HDL [Mass/Vol] 31 mg/dL Low >39 [facility] Reference Lab Comment on above: Performed By: #### H BA1C, CBCDIF, CMP, MICRO, FT4, MG1, LIPB, TSH #### [facility] Routine Lab [address] [place] [phone] #### HPYLRI #### [facility] Immunology [address] [place] [phone] Cholesterol in LDL [Mass/Vol] 82 mg/dL Normal <100 [facility] Reference Lab Comment on above: Performed By: #### H BA1C, CBCDIF, CMP, MICRO, FT4, MG1, LIPB, TSH #### [facility] Routine Lab [address] [place] [phone] #### HPYLRI #### [facility] Immunology [address] [place] [phone] Cholesterol in VLDL [Mass/Vol] 27 mg/dL Normal <30 [facility] Reference Lab Comment on above: Performed By: #### H BA1C, CBCDIF, CMP, MICRO, FT4, MG1, LIPB, TSH #### [facility] Routine Lab [address] [place] [phone] #### HPYLRI #### [facility] Immunology [address] [place] [phone] Cholesterol non HDL [Mass/Vol] 109 mg/dL Normal <130 [facility] Reference Lab Comment on above: Performed By: #### H BA1C, CBCDIF, CMP, MICRO, FT4, MG1, LIPB, TSH #### [facility] Routine Lab [address] [place] [phone] #### HPYLRI #### [facility] Immunology [address] [place] [phone] LDL:HDL Ratio 2.65 High <2.54 [facility] Reference Lab Comment on above: Performed By: #### H BA1C, CBCDIF, CMP, MICRO, FT4, MG1, LIPB, TSH #### [facility] Routine Lab [address] [place] [address] #### HPYLRI #### [facility] Immunology [address] [place], [place] [phone] TC:HDL Ratio 4.52 Normal <5.10 [facility] Reference Lab Comment on above: Performed By: #### H BA1C, CBCDIF, CMP, MICRO, FT4, MG1, LIPB, TSH #### [facility] Routine Lab [address] [place] [address] #### HPYLRI #### [facility] Immunology [address] [place] [address] Triglyceride [Mass/Vol] 135 mg/dL Normal <150 [facility] Reference Lab Comment on above: Performed By: #### H BA1C, CBCDIF, CMP, MICRO, FT4, MG1, LIPB, TSH #### [facility] Routine Lab [address] [place] [address] #### HPYLRI #### [facility] Immunology [address] [place] [address] Magnesiumon 06-24-2021 Magnesium [Mass/Vol] 2.2 mg/dL Normal 1.7-2.3 [facility] Reference Lab Comment on above: Performed By: #### H BA1C, CBCDIF, CMP, MICRO, FT4, MG1, LIPB, TSH #### [facility] Routine Lab [address] [place] [address] #### HPYLRI #### [facility] Immunology [address] [place] [address] TPO Antibodyon 06-24-2021 TPO Antibody <1.0 Normal <5.6 [facility] Reference Lab Comment on above: Performed By: #### H BA1C, CBCDIF, CMP, MICRO, FT4, MG1, LIPB, TSH #### [facility] Routine Lab [address] [address] #### HPYLRI #### [facility] Immunology [address] [place] [address] TSHon 06-24-2021 TSH Qn 3.280 m[IU]/L Normal 0.270-4.200 [facility] Reference Lab Comment on above: Performed By: #### H BA1C, CBCDIF, CMP, MICRO, FT4, MG1, LIPB, TSH #### [facility] Routine Lab [address] [place] [address] #### HPYLRI #### [facility] Immunology [address] [place] [address] Lipid Panel, Basicon 021 Fasting Time UN Normal [facility] Reference Lab Comment on above: Performed By: #### H BA1C, CBCDIF, CMP, MICRO, FT4, MG1, LIPB, TSH #### [facility] Routine Lab [address] [place] [address] #### HPYLRI #### [facility] Immunology [address] [place] [address] XR Wrist - left PA and Later al and Obliqueon 05-16-2020 IMPRESSION: 1. 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 2. 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 [employer]: PSC[employer] Transcribe Date/Time: May 16 2020 4:31P Dictated by : GILBERTO FERRER MD This examination was interpreted and the report reviewed and electronically signed by: GILBERTO FERRER MD on May 16 2020 4:45PM [facility] DIVISION OF RADIOLOGY * * *Final Report* * * DATE OF EXAM: May 16 2020 11:49AM WOX 5270 - XR WRIST 3V PA/LAT/OBL LT / PROCEDURE REASON: Swelling of joint of left wrist * * * * Physician Interpretation * * * * EXAMINATION: XR WRIST 3V PA/LAT/OBL LT HISTORY: Chronic dorsal area of swelling on the left wrist increasing in size and pain over the last year. No injury. Swelling of joint of left wrist . TECHNIQUE: XR WRIST 3V PA/LAT/OBL LT Laterality: LEFT Number of different views (projections): 3 M: XB_1 COMPARISON: None RESULT: There is no acute fracture or dislocation. Negative ulnar variance is noted. Several bony fragments are noted about the dorsum of the hand, likely from remote injury Mild degenerative changes are noted in the first radiocarpal and carpometacarpal joint. Widening of the scapholunate ligament is noted with proximal migration of the capitate. No focal soft tissue swelling. DIVISION OF RADIOLOGY Provider, [facility] - 05/16/2020 * * *Final Report* * * DATE OF EXAM: May 16 2020 11:49AM WOX 5270 - XR WRIST 3V PA/LAT/OBL LT / PROCEDURE REASON: Swelling of joint of left wrist * * * * Physician Interpretation * * * * EXAMINATION: XR WRIST 3V PA/LAT/OBL LT HISTORY: Chronic dorsal area of swelling on the left wrist increasing in size and pain over the last year. No injury. Swelling of joint of left wrist . TECHNIQUE: XR WRIST 3V PA/LAT/OBL LT Laterality: LEFT Number of different views (projections): 3 M: XB_1 COMPARISON: None RESULT: There is no acute fracture or dislocation. Negative ulnar variance is noted. Several bony fragments are noted about the dorsum of the hand, likely from remote injury Mild degenerative changes are noted in the first radiocarpal and carpometacarpal joint. Widening of the scapholunate ligament is noted with proximal migration of the capitate. No focal soft tissue swelling. IMPRESSION IMPRESSION: 1. 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 2. 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 [employer]: [employer] Transcribe Date/Time: May 16 2020 4:31P Dictated by : GILBERTO FERRER MD This examination was interpreted and the report reviewed and electronically signed by: GILBERTO FERRER MD on May 16 2020 4:45PM EST [facility] Radiology Study observation (narrative) [facility] XR Wrist - left PA and Later al and ObliqueOrdered By: [facility] Provider on 05-16-2020 [facility] ANES POSTPROC EVALon 020 ANES POSTPROC EVAL HNO ID: [id number] Author: Shameka Rodriguez Service: ? Author Type: Anesthesiologist Type: Anesthesia Postprocedure Evaluation Filed: 04/10/2020 4:19 PM Note Text: POST ANESTHESIA EVALUATION NOTE : 1955 Procedure Summary Date: 04/10/20 Room / Location: [place] / [place] Anesthesia Start: 1325 Anesthesia Stop: 1418 Procedure: RECONSTRUCTION TOE HAMMER (Right Foot) Diagnosis: Neoplasm of uncertain behavior of skin Surgeons: Blayne Gurrola DPM Responsible Provider: Shameka Rodriguez Anesthesia Type: general ASA Status: 2 Anesthesia Type: general Last vitals Vitals Value Taken Time BP 136/69 04/10/20 1445 Temp 36.2 ?C (97.2 ?F) 04/10/20 1430 HR SpO2 69 04/10/20 1445 Resp 16 04/10/20 1445 SpO2 97 % 04/10/20 1445 Post Anesthesia Patient Status Patient Evaluation: PACU. PACU/ICU Patient Condition: stable. Anticipated Disposition: phase 2 then home. Neurological Status: aware and responsive. Pulmonary Status: breathing comfortably on room air Airway Control: returned to baseline unsupported. Cardiovascular Status: stable. Pain Management: clinically adequate - multimodal analgesia pain management approach Postoperative Hydration: acceptable. Intraoperative Events: no significant anesthesia events Post Operative Nausea/Vomiting Status: no significant post operative nausea or vomiting Anesthetic Observations: no significant anesthetic observations Recommendation: continue current plan of care. SIGNATURE: Shameka Rodriguez MD PATIENT NAME: Dino Lawson DATE: April 10, 2020 TIME: 4:19 PM CSN: [id number] [facility] ANES PRE-OPon 04-10-2020 ANES PRE-OP HNO ID: [id number] Author: Shameka Rodriguez Service: ? Author Type: Anesthesiologist Type: Anesthesia Preprocedure Evaluation Filed: 04/10/2020 11:09 AM Note Text: ANESTHESIOLOGY DAY OF SURGERY NOTE : 1955 Procedure(s) (LRB): RECONSTRUCTION TOE HAMMER (Right) Surgeon(s): Blayne Gurrola DPM Estimated body mass index is 31.01 kg/m? as calculated from the following: Height as of this encounter: 170.2 cm (5' 7). Weight as of this encounter: 89.8 kg (198 lb). Most recent hematocrit and potassium results: Hematocrit 50.5 09/04/2019 Potassium 4.4 09/04/2019 Relevant Problems NEURO-PSYCH (+) History of Prinzmetal angina I - PHYSICAL EVALUATION AIRWAY Patient intubated: No. Tracheostomy tube not present Mallampati: II. TM distance: >3 FB. Neck ROM: full ROM without neurological symptoms. Mouth opening: adequate. DENTAL Dentures, upper: complete. Additional exam findings: no II - ANESTHESIA PLAN ASA Score: 2 Anesthetic Plan: general Airway type: LMA The patient is not a current smoker. NPO Status: adequate Monitoring plan: standard ASA. Postoperative analgesic plan: parenteral or oral opioids. Anesthetic Risks, Benefits, Alternatives, Personnel Discussed. Consent obtained from: patient. Patient / Surrogate agrees to blood products: Yes Significant changes in the patient condition since the History and Physical, not otherwise documented in primary service progress note: no. Potential Anesthesia issues that may suggest increased risk of complications or contraindication to planned procedure: none. Vitals Value Taken Time BP 134/72 04/10/20 1058 Pulse 65 04/10/20 1058 Resp 16 04/10/20 1058 Temp 36.5 ?C (97.7 ?F) 04/10/20 1058 SpO2 97 % 04/10/20 1058 Facility-Administered Medications as of 04/10/2020 Medication Dose Route Frequency - lactated ringers infusion 30 mL/hr INTRAVENOUS CONTINUOUS - ceFAZolin iv piggyback 2 g in D5W (iso-osmotic) 100 mL (ANCEF) 2 g INTRAVENOUS Pre-Op Once Outpatient Medications as of 04/10/2020 Medication Sig - atorvastatin (LIPITOR) 10 mg tablet Take 1 tablet by mouth daily at bedtime. For cholesterol. - multivitamins(DAILY VITAMIN TAB) Take one(1) tablet daily. I have interviewed and examined the patient. I have reviewed the medical record and/or the pre-anesthesia evaluation, pertinent labs, and test results. This contains updated information obtained within 48 hours of Surgery/Procedure. SIGNATURE: Shameka Rodriguez MD PATIENT NAME: Dino Lawson DATE: April 10, 2020 TIME: 11:08 AM CSN: [id number] [facility] OPERATIVE NOon 04-10-2020 OPERATIVE NO HNO ID: [id number] Author: Blayne Gurrola DPM Service: Podiatry Author Type: Physician Type: Operative Report Filed: 04/11/2020 8:31 AM Note Text: [facility] - Operative Report DINO LAWSON : 1955 AGE: 64. SEX: M PATIENT TYPE: A HOSP SVC: PODI LOCATION: [facility] ATTENDING PHYSICIAN: Blayne Gurrola D.P.M. CSN NUMBER: [id number] DATE OF SURGERY/PROCEDURE: 04/10/2020 INCISION/PROCEDURE START TIME: 1:44 PM INCISION CLOSE/PROCEDURE END TIME: 2:09 PM PREOPERATIVE DIAGNOSIS: 1. 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 2. 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 POSTOPERATIVE DIAGNOSIS: Same SURGEON: Blayne Gurrola D.P.M. STOGIE PACKER: Ismael, PGY-2. SURGERY/PROCEDURE: Skin biopsy x2, one of the central aspect of the lesion and #2 was on the proximal margin and we did 2 separate deep fascial biopsies and removal of neoplasm deep connective tissue. One in the 1st interspace and one in the 2nd interspace, both was less than 1.5 cm. The total size for the neoplasm on the skin was 6 x 5 and it was raised 1 cm. ANESTHESIA: Local sedation, total 10 mL of 0.5% Marcaine plain in the right foot. INDICATIONS FOR SURGERY: This patient, [facility] I had to amputate multiple toes, we got a relationship built and he let me know he had problem with this toe. I took care of her for 2 years and the patient had this neoplasm on the skin and continued to grow and get worse. He made an appointment, do 2 things going on in life. He was not seen for a while, then he came to my office. On presentation, he had this raised irregular border 6 x 5 raised 1 cm neoplasm with swelling in the interspace in the bottom. I warned him that this could be a cancerous that he needed a biopsy, so our goal of the procedure, I sent him for an MRI scan and it is also showing a separate deep fascial neoplasm in the 1st and 2nd interspace along the bottom and also the skin, so the will of the procedure today was to do a biopsy x2 of the skin and also do a deep fascial resection biopsy and depending on the results of this, he may end up with an amputation I warned him or could need to go to the [facility]oma [facility], and may be referred out to Oncology. The patient understand this. I warned him of the risks, waiting so long, he thinks he has had this I think total for like 10 years and he previous said he had a biopsy a long time ago, but he has an eye care on this for at least the last 3 to 4 years. ESTIMATED BLOOD LOSS: Less than 10 mL. DRAINS: None. SPECIMEN: x4 samples. We did x2 skin central biopsy of the lesion and then a proximal margin. Then, we have a 1st and 2nd interspace biopsy deep resection and sent this for deep fascial biopsy. COMPLICATIONS: None. DISPOSITION: Vital signs stable. Stable to PACU. DESCRIPTION OF PROCEDURE: The patient was brought to the operating room, placed on operating table in supine position. Upon administration of IV sedation, the patient had a right ankle block carried out with 10 mL of 0.5% Marcaine plain of the right foot. Next, right foot and ankle was scrubbed, prepped, and draped in normal fashion. Next at this time, we directed our attention over the 2nd toe, there was noted to be a raised irregular border with black and raised skin edges and borders, they were irregular, they were dark in color, it was asymmetric and one from the DIPJ of the toe all the way to the MPJ, so at this time in the central aspect right over the MPJ, we did a 4 mm punch biopsy, and we sent this off. We then took a second add on of the proximal margin and did a 4 mm punch biopsy and we then removed this and sent this for biopsy. Per the MRI, the patient had a 2nd type neoplasm connective tissue deep, so at this time, we made an incision with a #15 blade in the 1st interspace and we made it about a 2 cm long. We then opened up. There was noted to be dark blackish color like nodule type tissue that was irregular. We then excised this with a #15 blade and sent this for a biopsy and then we irrigated this area, then closed deep with 3-0 Vicryl and the skin with 3-0 nylon. We then repeated the same on the 2nd interspace. There was a connective type tissue neoplasm, it was not black in color. This was a separate neoplasm compared to the 1st interspace with a different presentation, this was more of yellow fibrotic type connective tissue neoplasm that we excised and we signed off for biopsy. Next, we then flushed this area and closed with 3-0 Vicryl and 3-0 nylon. We then cauterized our biopsy site. We put Xeroform, 4x4s, Kerlix, and Rafael. The patient tolerated the procedure and anesthesia well, was transferred to PACU with vital signs stable and vascular status intact to all aspects of right foot and ankle. Following a period postop monitoring, patient will be discharged home. We will send this off for pathology. May take a couple of weeks. I warned him that he may have to go to Melanoma Clinic or Oncology. The patient also is at risk for, if this removed, he could be up even the risks of having the 2nd toe amputated as well as the TMA, so we will follow this and he is aware that we may have to send him out for further care on this and he is completely aware. The patient will follow up with me in 1 week. Blayne Gurrola D.P.M. RL:[id number] /[id number] cc: * [facility] PT EDon 04-10-2020 PT ED HNO ID: [id number] Author: Kalin Mo RN Service: Nursing Author Type: Registered Nurse Type: Patient Education Filed: 04/10/2020 3:44 PM Note Text: POST OP LEARNING RESPONSE INSTRUCTION PROVIDED TO: Patient and family member METHOD OF INSTRUCTION: Written instruction - handouts Verbal instruction PATIENT / FAMILY RESPONSE: Verbalizes understanding of: POST-OPERATIVE INSTRUCTIONS-Correct actions to take to reduce postoperative complications FOLLOW-UP PLAN: Patient instructed to call with any further issues SUPPLEMENTAL MATERIAL: None REFERRAL (RECOMMENDATION): None Electronically Signed By: Kalin Mo RN In Department: [facility] SURGERY [facility] PT ED HNO ID: [id number] Author: Britney Garner) Nory RN Service: ? Author Type: Registered Nurse Type: Patient Education Filed: 04/10/2020 10:49 AM Note Text: PRE OP LEARNING ASSESSMENT PROCEDURE/SURGERY: SURGERY: Right Hammer Toe Reconstruction READINESS TO LEARN COGNITIVE ABILITY: Alert and oriented MOTIVATION TO LEARN: Interested FAMILY SUPPORT: High - Very involved in pt care PATIENT LEARNS BEST BY: Verbal Instruction FACTORS AFFECTING LEARNING: None PHYSICAL LIMITATIONS AFFECTING LEARNING: None Electronically Signed By: Britney Cueto RN In Department: [facility] SURGERY Normal [facility] SURGICAL PATHOLOGYon 020 SURGICAL PATHOLOGY Specimen originated from [facility] Specimen #: [id number] Submitting Physician: BLAYNE GURROLA M.D. FINAL DIAGNOSIS 1. Skin and soft tissue, right second toe, #1 center, punch biopsy (A) - Angiomatosis. 2. Skin and soft tissue, right second toe, #2 proximal margin, punch biopsy (B) - Angiomatosis. 3. Soft tissue, right second toe, deep connective tissue/fascia #3, biopsy (C) - Angiomatosis. 4. Soft tissue, right second toe, deep connective tissue/fascia #4, biopsy (D) - Angiomatosis. BPEdel/LAUREN/pau 04/15/2020 Talon Ramirez M.D., PhD (Electronic Signature) SPECIMEN SUBMITTED A: SKIN, RIGHT 2ND TOE #1-CENTER, BIOPSY B: SKIN, RIGHT 2ND TOE #2-PROXIMAL MARIGN, BIOPSY C: RIGHT 2ND TOE DEEP CONNECTIVE TISSUE/FASCIA BIOPSY #3 D: RIGHT 2ND TOE DEEP CONNECTIVE TISSUE/FASCIA BIOPSY #4 CLINICAL DATA NEOPLASM OF UNCERTAIN BEHAVIOR OF SKIN GROSS DESCRIPTION A. Received in formalin labeled as skin, right 2nd toe #1 center, biopsy and consists of a segment of lazcano-grey skin punch biopsy measuring 1.2 x 0.4 x 0.3 cm. The specimen is bisected and is submitted in cassette A1. B. Received in formalin labeled as skin, right 2nd toe #2 proximal margin, biopsy and consists of a segment of lazcano-grey skin punch biopsy measuring 1.1 x 0.4 x 0.3 cm. The entire specimen is submitted intact in cassette B1. C. Received in formalin labeled as right 2nd toe deep connective tissue/fascia biopsy #3 and consists of multiple pieces of lazcano-grey soft tissue fragments aggregating to 1.5 x 1.3 x 0.5 cm. The entire specimen is submitted in cassette C1. D. Received in formalin labeled as right 2nd toe deep connective tissue/fascia biopsy #4 and consists of a segment of lazcano-grey soft tissue measuring 1.2 x 1.1 x 0.8 cm. The specimen is serially sectioned and is entirely submitted in cassette D1. TN/td 04/11/2020 Gross examination [place] [address] Date of Report: 04/15/2020 Date of Procedure: 04/10/2020 Date of Receipt: 04/10/2020 Submitted by: BLAYNE GURROLA M.D. Location: [facility] Diagnostic interpretation performed at [place] [address]. [facility] Number: [id number] [facility] NURSING PROGon 04-05-2020 NURSING PROG HNO ID: [id number] Author: Renae Acevedo (Rn) JAMMIE Branham Service: ? Author Type: Registered Nurse Type: Nursing Progress Note Filed: 04/05/2020 7:51 AM Note Text: PACC Nurse Progress Note History AND Physical: PACC Visit Date: 04/04/2020 Original HANDP Date: 04/04/2020 ED visit Date: N/A Outside HANDP Scanned Date: N/A Labs Within Last 6 Months: Covid19: Date 04/07/2020 - TBD Imaging Within Last 12 Months: See Epic for complete list of imaging Cardiac Testing: EKG in last 12 Months: Yes: Date: 09/04/2019 Risk Assessment: N/A Anesthesia Review: N/A Narrative: N/A Pre-op Considerations: Hx: Prinzmetal angina - Symptoms stable Chart Check: COMPLETED Renae Branham RN April 05, 2020 7:48 AM Normal [facility] HISTORY PHYSICALon 0 HISTORY PHYSICAL HNO ID: [id number] Author: Alana Chauhan Service: ? Author Type: Nurse Practitioner Type: HANDP Filed: 04/04/2020 3:36 PM Note Text: HISTORY AND PHYSICAL EXAMINATION SERVICE DATE: 04/04/2020 SERVICE TIME: 2:55 PM PRIMARY CARE PHYSICIAN: Apolinar Jones MD REASON FOR VISIT: Dino Lawson is a 64 year old male who is scheduled for RECONSTRUCTION TOE HAMMER, excision neoplasm right foot at the request of Dr. Blayne Gurrola for consultation. My final recommendation will be communicated back to the requesting physician by way of shared medical record or letter. The patient has the following: ACTIVE PROBLEM LIST Other Hyperlipidemia Hemangioma of subcutaneous tissue right forefoot History of Prinzmetal Angina Former Smoker Subjective CHIEF COMPLAINT: Pre-Op Exam HPI: 64 year old male patient presents today with neoplasm of uncertain behavior. Patient with history of hammertoe since . He started to note growth in height/length of over the past 10 years. He notes intermittent tenderness and discomfort. Walking on cold grounds improves his symptoms. He is using Tylenol for pain relief, twice daily. He has been in a walking boot for the past three years. He also experiences neck pain intermittently. He denies any other joint pain, muscle pain or lower extremity swelling. PAST MEDICAL HISTORY Diagnosis Date - Hemangioma of subcutaneous tissue right forefoot 10/11/2008 - Hemangioma of unspecified site 10/11/2008 - Other and unspecified hyperlipidemia Hyperlipidemia - Prinzmetal angina (HCC) 2000 PAST SURGICAL HISTORY Procedure Laterality Date - COLONOSCOP W/ OR W/O BRSH SPEC 09/20/2019 Colonoscopy - CT ANESTH,CARDIAC CATH W/CORON ART AND VENT 02/2001 - TOOTH EXTRACTION FAMILY HISTORY Problem Relation Age of Onset - Heart Father [place], TRIPLE CABG - Hypertension Father - Colon Cancer Mother complications of surgery - Hypertension Mother - Heart Mother - other (Other) Sister tuberculosis - Coronary Artery Disease Brother - Coronary Artery Disease Brother massive [place] - Cancer Sister bone cancer SOCIAL HISTORY: Social History Tobacco Use - Smoking status: Former Smoker Packs/day: 2.00 Years: 34.00 Pack years: 68.00 Types: Cigarettes Start date: 1968 Quit date: 07/19/2001 Years since quittin.7 - Smokeless tobacco: Never Used Substance Use Topics - Alcohol use: Yes Frequency: 2-4 times a month Drinks per session: 1 or 2 Binge frequency: Never Comment: occassionally - Drug use: No MEDICATIONS: Prior to Admission medications as of 04/04/20 1531 Medication Sig Last Dose Taking ascorbic acid (VITAMIN C ORAL) Take by mouth. Taking Yes VITAMIN E ORAL Take by mouth. Taking Yes atorvastatin (LIPITOR) 10 mg tablet Take 1 tablet by mouth daily at bedtime. For cholesterol. Taking Yes multivitamins(DAILY VITAMIN TAB) Take one(1) tablet daily. Taking Yes No medication comments found. CURRENT ALLERGIES: ALLERGIES Allergen Reactions - Fish Rash - Iodine Rash REVIEW OF SYSTEMS: PAIN ASSESSMENT: Pain Pain Level: 3 Pain Location: Foot-Right Description: Aching Duration Units: Unknown Frequency: Continuous Intervention: Medication General: No weight loss, malaise or fevers. Neuro: No history of TIA's, stroke, ASSEMBLER WET WASH tumor, impaired sensorium, hemiplegia, paraplegia or quadraplegia. No neurological symptoms or problems. Respiratory: (+) Former smoker-quit 2001. No history of current cough or dyspnea, or pneumonia in the past 6 weeks. No history of respiratory/pulmonary symptoms or problems. Cardiovascular: (+) HLD-controlled on Rx. Last lipid panel 08/2019. (+) Prinzmetal angina-heart cath 2000. No hx of PCI. No history of HTN, angina, CHF, OH or stent. Denies rest pain, gangrene or revascularization/amputat ion for PVD. No history of palpitations, syncope, DVT, PE or murmur. GI: No history of GI symptoms or problems. No history of esophageal varices, recent ascites, or ETOH greater than 2 drinks per day. : No history of dysuria, frequency or incontinence,, stones or chronic kidney disease, No difficulty urinating, nocturia > 1 time per night or hematuria Endocrine: No history of diabetes. Has not taken steroids within the past 30 days. No history of endocrinological symptoms or problems. Hematology: No history of bleeding or clotting disorder. Pt is not taking anti-coagulation or platelet medications. No history of hematological symptoms or problems. Oncology: No history of CA metastasis, chemo within 30 days, or radiotherapy within 90 days. Has not lost 10% of body wt in 6 months. No history of oncological symptoms or problems. Psych: No history of psychiatric symptoms or problems. Musculoskeletal: See HPI Skin: Negative for lesions, rash and itching. Objective PHYSICAL EXAM: VITALS: BP 140/71 Pulse 82 Temp (Src) 98.6 (Tympanic) Resp 16 Ht 5' 7 (1.70m) Wt 198 lb (89.8kg) SpO2 99% BMI 31.00 kg/(m2). General: Alert and oriented, No acute distress, Obese Skin: Normal color, no rash, no lesions. HEENT: EOM, pupils equal, round and reactive., No carotid bruits Cardiovascular: Normal S1 AND S2, no rubs, murmurs or gallops. No JVD. Pulse regular. Lungs: Normal breath sounds, no wheezes or crackles., No chest deformities or chest wall tenderness. Abdomen: Soft, non-tender, no rigidity., No masses or organomegaly., Positive bowel sounds Extremities: No deformity, no edema or tenderness, no joint swelling or clubbing. Neurological: Normal cognition and motor skills. Gait normal. No weakness or sensory deficit. Pulses: Carotid and radial pulses normal +2. Pedal pulses normal +2. Diagnostic tests reviewed for today's visit: Lab Value Units Date High Low HB No results within date range. HCT No results within date range. WBC No results within date range. PLT No results within date range. NA No results within date range. K No results within date range. GLUC No results within date range. BUN No results within date range. CREAT No results within date range. PTSEC No results within date range. INR No results within date range. APTT No results within date range. ALT No results within date range. AST 43 U/L 02/28/2020 40 14 TBILI No results within date range. TSH No results within date range. Lab Value Units Date High Low HCGQT No results within date range. UHCG No results within date range. HCG, BODY* No results within date range. Lab Value Units Date High Low ABORHD No results within date range. ABSCREEN No results within date range. No results found for: HBA1C Most recent labs Most recent imaging Assessment/Plan Other hyperlipidemia Assessment: Controlled on Rx. Last lipid panel 08/2019. History of Prinzmetal angina Assessment: Symptoms stable. Last heart cath 2000, no hx of PCI. Former smoker Assessment: Quit 2001. METS: Climb a flight of stairs or walk up a hill (5.50 METs) Patient denies any chest pain or undue shortness of breath with the above physical activity. ASA Class: 2 ANESTHESIA FINDINGS: Intubation History: No prior intubation Significant Anesthesia Considerations: None Airway Exam: General: Normal appearance Mallampati Score is CLASS II ULBT: Unable to perform Neck: Normal appearance and function, Distance from hyoid to mentum during neck extension is at least 3 finger breaths Mouth: Normal tongue size and Mouth opening greater than 2 finger breaths Dentition: Edentulous, bottom. Airway History: No prior intubation STOP BANG Score: Criteria: Age over 50 (64 year old) Male gender Score = 2 PLAN This patient is optimally prepared for surgery. CONSULTS: Patient does not require consults for optimization at this time. The Following Tests/Procedures Have Been Initiated: Labs not indicated per PACC protocol, EKG not indicated per PACC protocol Planned Anesthetic: General Instructions Given to Patient: Instructions located in the after visit summary. Patient given verbal and written preop instructions and voices comprehension and compliance. SIGNATURE: Alana Chauhan APRN.CNP PATIENT NAME: Dino Lawson DATE: April 04, 2020 TIME: 2:55 PM PAGER/CONTACT #: [facility] HOSPon 03-22-2020 HOSP Patient:Mariana Lawson MRN: Height:5' 7(1.702 m) Weight:198 lb (89.812 kg) Outpatient Medications as of 04/10/20: oxyCODONE-acetaminophen (PERCOCET) 5-325 mg tablet cephALEXin (KEFLEX) 500 mg capsule ascorbic acid (VITAMIN C ORAL) VITAMIN E ORAL atorvastatin (LIPITOR) 10 mg tablet multivitamins(DAILY VITAMIN TAB) Admission/Clinic Administered Medications as of 04/10/20: lactated ringers infusion ceFAZolin iv piggyback 2 g in D5W (iso-osmotic) 100 mL (ANCEF) Problem List: Other hyperlipidemia [E78.49] Hemangioma of subcutaneous tissue right forefoot [D18.01] History of Prinzmetal angina [Z86.79] Former smoker [Z87.891] Allergies: Fish Iodine Date Verified: 04/10/20 Lab Values No results within the last 30 days for the following basenames: K,HCT No progress notes entered within the past 30 days Normal [facility] Vital Signs Date Time Vital Sign Value Performing Clinician Michelle balderas 10-23-2021 10:58-0400 Body height 170.18 cm DOCUMENT PROCESSOR-C [employer] Work Phone: [facility] Work Phone: 10-23-2021 10:58-0400 Body mass index (BMI) [Ratio] 28.1 kg/m2 DOCUMENT PROCESSOR-C AlondraDormir Work Phone: [facility] Work Phone: 10-23-2021 10:58-0400 Body weight 81.64 kg DOCUMENT PROCESSOR-C [employer]ondraDormir Work Phone: [facility] Work Phone: 10-23-2021 10:58-0400 Diastolic blood pressure 92 mm[Hg] DOCUMENT PROCESSOR-C AlondraDormir Work Phone: [facility] Work Phone: 10-23-2021 10:58-0400 Heart rate 72 /min DOCUMENT PROCESSOR-C Alondra [employer] Work Phone: [facility] Work Phone: 10-23-2021 10:58-0400 Respiratory rate 18 /min DOCUMENT PROCESSOR-C Alondra Weiss Work Phone: [facility] Work Phone: 10-23-2021 10:58-0400 Systolic blood pressure 154 mm[Hg] DOCUMENT PROCESSOR-C Alondra Weiss Work Phone: [facility] Work Phone: Encounters Encounter Date Encounter Type Care Provider Facility Start: 12-22-2024 ambulatory [facility] Facility:[facility] Start: 07-07-2024 End: 07-07-2024 Emergency department patient visit [facility] Facility:[facility] Start: 04-22-2024 End: 04-22-2024 ambulatory [place] Anna Facility:[facility] Start: 04-01-2024 End: 04-01-2024 ambulatory Suresh Castillo Facility:[facility] Start: 02-21-2024 End: 02-21-2024 ambulatory Suresh Castillo Facility:[facility] Start: 12-23-2023 End: 12-23-2023 ambulatory Alondra Weiss [facility] Facility:[facility] Start: 11-11-2021 Non-patient / Non-visit DOCUMENT PROCESSOR-C Basia Weiss Work Phone: [facility] Start: 11-11-2021 End: 11-11-2021 Patient encounter procedure DOCUMENT PROCESSOR-Gloria Weiss Work Phone: [facility] Start: 10-23-2021 End: 10-23-2021 Patient encounter procedure DOCUMENT PROCESSOR-Gloria Weiss Work Phone: [facility] Start: 09-25-2021 Non-patient / Non-visit DOCUMENT PROCESSOR-C Basia Weiss Work Phone: [facility] Start: 05-16-2020 End: 05-16-2020 Subsequent hospital visit by physician [facility] Work Phone: Radiology Comment on above: Swelling of joint of left wrist [M25.432] Procedures Date Procedure Procedure Detail Performing Clinician Start: 01-26-2022 Lipid 1996 panel - S joseph or Plasma [facility] Work Phone: Start: 11-11-2021 Cardiovascular stres s test using pharmacologic stress agent DOCUMENT PROCESSOR-Gloria Weiss Work Phone: Start: 09-05-2021 PSA screening Comment on above: Performed By: #### H BA1C, CBCDIF, CMP, MICRO, FT4, MG1, LIPB, TSH #### [facility] Routine Lab [address] [address] #### HPYLRI #### [facility] Immunology [address] [place], [place] [address] Start: 05-16-2020 Radex wrist complete minimum 3 views Apolinar Jones MD Work Phone: Start: 09-20-2019 Colonoscopy [facility] Work Phone: Plan of Treatment Date Care Activity Detail Author Start: 05-16-2030 Urine microalbumin profile DTaP,Tdap,Td Vaccine (1 - Tdap) [facility] Comment on above: Postponed from 05/17 (Postponed - Not Clinically Indicated) Start: 2029 RSV Vaccine (1 - 1-d ose 75+ series) RSV Vaccine (1 - 1-dose 75+ series) [facility] Start: 01-26-2027 Lipid panel Lipid Screening [facility] Start: 09-16-2025 Pneumococcal Vaccine : 65+ (3 of 3 - PPSV23 or PCV20) Pneumococcal Vaccine: 65+ (3 of 3 - PPSV23 or PCV20) [facility] Start: 01-26-2025 Diabetes Screening Diabetes Screenin g [facility] Start: 03-19-2024 Covid-19 Vaccine ( season) Covid-19 Vaccine ( season) [facility] Start: 03-19-2024 Influenza vaccination Influenza Vacc ine (#1) [facility] Start: 07-19-2023 Advance Directive Discussion Advance Directive Discussion [facility] Start: 09-19-2022 Screening for malign ant neoplasm of colon [facility] Start: 11-20-2021 Shingrix Vaccine (2 of 2) Shingrix V accine (2 of 2) [facility] Start: 1999 Screening for malign ant neoplasm of colon [facility] Start: 1972 Anxiety Screening Anxiety Screening [facility] Start: 1972 Depression Screening Depression Scre ening [facility] Immunizations Immunization Date Immunization Notes Care Provider Talya barrera 05-16-2020 influenza (HD-IIV4) vaccine, age 65+ yr, high dose, quadrivalent, PF (FLUZONE HIGH-DOSE) [facility] Work Phone: [facility] 05-16-2020 tetanus and diphther ia toxoids, adsorbed, preservative free, for adult use (5 Lf of tetanus toxoid and 2 Lf of diphtheria toxoid) [facility] Work Phone: [facility] 05-16-2020 influenza virus vacc ine, unspecified formulation Xr Aydee Work Phone: [facility] 05-30-2015 influenza, injectabl e, quadrivalent, contains preservative X[facility] Work Phone: [facility] 05-30-2014 influenza, injectabl e, quadrivalent, contains preservative Xr Aydee Work Phone: [facility] 05-29-2005 influenza virus vacc ine, unspecified formulation X[facility] Work Phone: [facility] 05-29-2005 pneumococcal polysaccharide vaccine, 23 valent Xr Aydee Work Phone: [facility] Payers Date Payer Category Payer Medicaid [id number] [facility] 2023 Self-pay [id number] 2023 Unknown [id number] 2019 Medicare UHC AAR MEDICAR E UHC AARP MEDICARE PPO [id number] 2019-[id number] [place] [id number] PPO [id number] Medicare AARP MCR ADV [id number] UNKNOWN [id number] Unknown [facility] ADV [id number] Unknown [id number] Unknown [id number] Unknown [id number] Unknown [id number] Unknown [id number] Unknown [id number] Social History Date Type Detail Facility Start: 10-23-2021 Tobacco smoking status [facility] Unknown if ever smoked [facility] Work Phone: Start: 1955 Sex Assigned At Male [facility] Work Phone: Start: 09-04-2019 Tobacco smoking status LAIS Ex-smoker [facility] Start: 1969 End: 07-19-2001 History of tobacco use Current smoker [facility] Start: 1969 End: 07-19-2001 History of tobacco use Cigarette Smoker [facility] Start: 09-04-2019 End: 05-16-2020 Cigarettes smoked current (pack per day) - Reported 2 [facility] Start: 09-04-2019 Tobacco use and exposure Smokeless tobacco non-user [facility] Start: 05-16-2020 Alcoholic beverage intake Current drinker of alcohol (finding) [facility] Start: 09-04-2019 End: 05-16-2020 Alcohol Use Disorder Identification Test - Consumption [AUDIT-C] [facility] How often to you hav e a drink containing alcohol? Monthly or less [facility] How many standard dr inks containing alcohol do you have on a typical day? 1 or 2 [facility] How often do you hav e 6 or more drinks on 1 occasion? Never [facility] Start: 09-20-2019 Alcohol Comment occassionally [facility] Start: 1955 Sex assigned at Not on file [facility] Start: 04-16-2020 End: 05-16-2020 Exposure to SARS-CoV-2 (event) Not sure [facility] History of Present illness Narrative 05-16-2020 Keira Faulkner (Rt), Tech - 05/16/2020 11:40 AM EDT Note Date & Type Note Facility 05-16-2020 History of Presen t illness Narrative Radiology Service Progress Note PATIENT NAME: Dino Lawson DATE OF SERVICE: May 16, 2020 TIME: 11:41 AM PATIENT IDENTITY VERIFICATION COMPLETED USING TWO (2) IDENTIFIERS: Name and Date of confirmed by patient verbally. FALL SCREENING: Has the patient had 2 falls in the last year or 1 fall with injury or currently using an Ambulatory Assistive Device (Walker, Cane, Wheelchair, Crutches, etc.)? No PATIENT GENDER DATA: Male PATIENT RELEVANT IMPLANT DATA REVIEWED: Yes RADIOLOGY DEPARTMENT: General X-ray: Exam(s) Completed: Upper Extremity X-Ray(s): Wrist, left : PERIPHERAL IV DATA: Not applicable SIGNED BY: RT Delaney May 16, 2020 11:41 AM documented in this encounter [facility] Evaluation note Note Date & Type Note Facility Evaluation note Diagnosis Onset Date Chest pain acute Family history of coronary artery disease acute Pure hypercholesterolemia [place] SOB (shortness of breath) on exertion acute COPD (chronic obstructive pulmonary disease) [facility] Work Phone: Evaluation note Note Date & Type Note Facility Evaluation note Diagnosis Preoperative examination- Primary Preoperative examination, unspecified Neoplasm of uncertain behavior Neoplasm of uncertain behavior, site unspecified Other hyperlipidemia History of Prinzmetal angina Personal history of other diseases of circulatory system Former smoker Personal history of tobacco use, presenting hazards to health Swelling of joint of left wrist Effusion of forearm joint documented in this encounter [facility] Summary Purpose Family History No Family History Records Found Relationship Condition Age at Onset Recorded Date/T karolyn father Coronary artery disease Unknown Myocardial infarction Unknown History of coronary artery bypass surgery Unknown Hypertension Unknown mother Cardiac disease Unknown Malignant neoplasm Unknown brother Coronary artery disease Unknown Advance Directives No Advanced Directives Records FoundNo Advanced Directives Records FoundNo Advanced Directives Records FoundNo Advanced Directives Records Found Procedure Findings Note HNO ID: [id number] Author: Curtis Rodriguez Service: ? Author Type: Anesthesiologist Type: Anesthesia Procedure Notes Filed: 04/10/2020 4:19 PM Note Text: ANESTHESIOLOGY PROCEDURE NOTE Airway General Information Procedure Start Time/Medication Administration: 04/10/2020 1:34 PM Patient location during procedure: OR Timeout Performed Pre-procedure: timeout performed Consent Obtained: Yes Patient identity confirmed: arm band and patient Staffing APPLICATION HELPER: Anny Mccabe Performed by: APPLICATION HELPER Indications and Patient Condition Preoxygenated: yes Patient position: sniffing Indications for airway management: anesthesia anesthesia circuit Method: asleep Airway Accessory: LMA Final Airway Details Final airway type: supraglottic airway Number of attempts at approach: 1 Final Supraglottic Airway: IGEL Size 4 Comments I-Gel 4 inserted SIGNATURE: Anny Mccabe, CERAMIC TILE MECHANIC.SWAPNIL PATIENT NAME: Dino Lawson DATE: April 10, 2020 TIME: 1:45 PM CSN: [id number] Note HNO ID: [id number] Author: Edel Gurrola DPM Service: Podiatry Author Type: Physician Type: Brief Op Note Filed: 04/10/2020 2:08 PM Note Text: BRIEF OPERATIVE / PROCEDURE NOTE LOG ID: [id number] SURGERY/PROCEDURE DATE: 04/10/2020 INCISION/PROCEDURE START TIME: 1:44 PM INCISION CLOSE/PROCEDURE END TIME: SURGEON(S)/PROCEDURALIST(S) AND STOGIE PACKER(S): Surgeon(s) and Role: * Blayne Gurrola DPM - Primary * Frank Guevara - Resident - Assisting Registered Nurse Inbound Customer Service Agent: Gill (Rn) JAMMIE Flores SURGERY/PROCEDURE(S): Skin Biopsy x2 central lesion and proxmial margain Deep fascial biopsy first and second innerspace x2 Right foot ANESTHESIA: General FINDINGS: ESTIMATED BLOOD LOSS: less then ten cc SPECIMENS: Skin x2 for path Deep fascial neoplasm x2 sent for path COMPLICATIONS: none PRE-OP/PRE-PROCEDURE DIAGNOSIS: Skin neoplasm, Deep connective tissue neopaslm right foot POST-OP/POST-PROCEDURE DIAGNOSIS: SIGNATURE: Blayne Gurrola DPM PATIENT NAME: Dino Lawson DATE: (more content not included)... Chief Complaint and Reason for Visit Chief Complaint Amb Documentation FAMILY HX, OCC CP ([facility] ALONDRA WEISS CNP) SHORTNESS OF BREATH SHORTNESS OF BREATH Reason for Visit Chest pain Family history of coronary artery disease Pure hypercholesterolemia SOB (shortness of breath) on exertion COPD (chronic obstructive pulmonary disease) Additional Source Comments (unrecognized sect ion and content) No Status Records FoundNo Status Records FoundNo Status Records FoundNo Status Records Found INFORMATION SOURCE (unrecogn ized section and content) DATE CREATED AUTHOR 04/16/2020 [facility] DATE CREATED AUTHOR AUTHOR'S ORGANIZ ATION 09/06/2021 [facility] DATE CREATED AUTHOR AUTHOR'S ORGANIZ ATION 01/27/2022 [place] [facility] DATE CREATED AUTHOR AUTHOR'S ORGANIZ ATION 12/21/2024 [facility] Goals (unrecognized section and content) Goals may be documented in a n alternate section Source Comments (unrecognize d section and content) In the event this informatio n is protected by the Federal Confidentiality of Alcohol and Drug Abuse Patient Records regulations: The Federal rules restrict any use of the information to criminally investigate or prosecute any alcohol or drug abuse patient.[facility] Reason for Visit (unrecogniz ed section and content) Specialty Diagnoses / Procedures Referred By Molly correa Referred To Contact Radiology / [facility] Diagnoses Swelling of joint of left wrist [M25.432] Procedures XR GENERAL 7 Apolinar Jones MD [address] [place] [address] Radio [facility] [address] [place] [address] Referral ID Status Reason Start Date Expiration Date Visits Re quested Visits Authorized [id number] Closed 05/16/2020 07/18/2020 1 1 Care Teams (unrecognized sec tion and content) Debug Technician Relationship Specialty Start Date End Date Apolinar Jones MD [address] [place] [address] PCP - General Internal Medicine 09/04/19 01/24/24 Ashlyn Rosado MD [address] [place] [address] Physician Radiation Oncology 05/08/20 FOR RECORDS PERTAINING TO PATIENTS WHO ARE OR HAVE BEEN ENROLLED IN A CHEMICAL DEPENDENCY/SUBSTANCEABUSE PROGRAM, SOME INFORMATION MAY BE OMITTED. This clinical summary was aggregated from multiple sources. Caution should be exercised in using it in the provision of clinical care. This summary normalizes information from multiple sources, and as a consequence, information in this document may materially change the coding, format and clinical context of patient data. In addition, data may be omitted in some cases. CLINICAL DECISIONS SHOULD BE BASED ON THE PRIMARY CLINICAL RECORDS. [employer] provides no warranty or guarantee of the accuracy or completeness of information in this document.
== END | disposition home or self-care (01) ==
PROVIDERS: PCP Family Medicine; Referring Provider Family Medicine; Visit Provider Family Medicine
DX: R01.1 Cardiac murmur, unspecified (principal)
CPT/HCPCS: 93306; Q9957; A4216; C8929

== ENCOUNTER → 2025-02-21 | Outpatient (CLI) | payer MEDICARE, SELFPAY ==
--- OUTSIDE RECORDS SUMMARY | 2025-02-07 08:29 | XMS RPT_ITS | CCD ---
Author Organization [facility] Care Team Providers Care Pediatric Dietician Name Role Phone KIM Weiss Alondra Primary Care Provider Loren Barbour Attending Provider Unavailable KIM Weiss Referring Provider Dr. Arnel Li Attending Provider Dr. Arnel Li Referring Provider [phone] Arnel Li Other Provider Robert MATTHEWS, Apolinar Jean Primary Care Provider Alonzo MATTHEWS, Daeun Unavailable Anna MATTHEWS, Suresh Primary Care Provider [phone] Suresh Castillo MD Attending Provider [phone] Anna MATTHEWS, Suresh Referring Provider [phone] Theo MATTHEWS, Dr. Pradhan Attending Provider Anna, Chalon Primary Care Unavailable Jaclyn Pacheco Attending Unavailable Anna, Chalon Referring Unavailable Anna, Chalon Primary Care Unavailable Carolynn Venegas Attending Unavailabl e Anna, Chalon Primary Care Unavailable Anna, Chalon Attending Unavailable Anna, Chalon Primary Care Unavailable Anna, Chalon Attending Unavailable Anna, Chalon Referring Unavailable Anna, Chalon Primary Care Unavailable Anna, Chalon Attending Unavailable Anna, Chalon Referring Unavailable Anna, Chalon Primary Care Unavailable Palmer Whittaker Attending Unavailable Allergies Allergy Classification Reported Allergen(s) Allergy Type Date of Onset Reaction(s) Facility (3 sources) Fish Containing Products; Translations: [Fish Containing Products] Propensity to adverse reactions 2 Unknown, [facility] (3 sources) Iodine and Iodide Containing Produc; Translations: [Iodine and Iodide Containing Produc] Propensity to adverse reactions 2 Unknown, Rash [facility] (1 source) Fish Food Allergy 5 Rash [facility] Work Phone: (1 source) Iodine Drug Allergy 9 [facility] Medications Current Medications Medication Drug Class(es) Dates Sig (Normalized) Sig (Original) [id number] 200 actuat albuterol 0.09 mg/actuat metered dose inhaler (3 sources) beta2-Adrenergic Agonist Start: 12-23-2023 Albuterol Sulfate 90 mcg/actuation HFA aerosol inhaler Active 2 NMA INHALATION EVERY 4-6 HOURS as needed for shortness of breath or wheezing 6.7 December 23, 2023 12:00am Start: 10-23-2021 take 1 puff(s) by in halation every six hours Albuterol Sulfate (Proair Hfa) 90 mcg/actuation HFA aerosol inhaler Active 2 PUFF INHALATION EVERY 6 HOURS October 23, 2021 10:59am Start: 10-23-2021 Albuterol Sulf ate (Proair Hfa) 90 mcg/actuation HFA aerosol inhaler Active 2 NMA INHALATION EVERY 6 HOURS as needed for sob October 23, 2021 12:00am Ascorbic Acid (3 sources) Vitamin C Start: 09-25-2021 take 1 g by mouth once daily Ascorbic Acid (Vitamin C) Active 1 GM PO DAILY September 25, 2021 9:29am Start: 09-25-2021 take 1 g by mouth once daily A scorbic Acid (Vitamin C) 1,000 mg tablet Active 1 g PO DAILY September 25, 2021 1:00am ascorbic acid (V ITAMIN C ORAL) Take by mouth. Active atorvastatin 10 mg oral tablet (3 sources) HMG-CoA Reductase Inhibitor Start: 09-25-2021 take [...] 09/16/2020 Discontinued cholecalciferol 0.025 mg oral tablet (3 sources) Vitamin D Start: 10-05-2022 take 1 tablet by mouth once daily Cholecalciferol (Vitamin D3) 25 mcg (1,000 unit) tablet Active 50 ug PO DAILY October 05, 2022 9:19am Start: 09-25-2021 End: 10-05-2022 take 25 ug by mouth once daily Cholecalciferol (Vitamin D3) Active 25 MCG PO DAILY September 25, 2021 9:29am erythromycin 0.005 mg/mg ophthalmic ointment (1 source) Macrolide, Macrolide Antimicrobial Start: 07-07-2024 Erythromycin 5 mg/gram (0.5 %) ointment Active RIGHT EYE AT BEDTIME July 07, 2024 1:00am Fluticasone-Umeclidin- Vilanter (2 sources) Anticholinergic, Corticosteroid, beta2-Adrenergic Agonist Start: 10-23-2021 Fluticasone-Umeclidi n -Vilanter (Trelegy Ellipta) 100-62.5-25 mcg blister with device Active 1 INH INHALATION DAILY October 23, 2021 10:58am Start: 10-23-2021 Fluticasone-Um eclidin-Vilanter (Trelegy Ellipta) 100-62.5-25 mcg blister with device Active 1 NMA INHALATION DAILY October 23, 2021 12:00am Multivitamin (One Daily Multivitamin) tablet (1 source) Start: 10-05-2022 take 1 tablet by mouth once daily Multivitamin (One Daily Multivitamin) tablet Active 1 {tbl} PO DAILY October 05, 2022 12:00am multivitamins(DAILY VITAMIN TAB) (1 source) Start: 09-18-2008 multivitamins( DAILY VITAMIN TAB) Take one(1) tablet daily. 0 09/18/2008 Active VITAMIN E ORAL (1 source) VITAMIN E ORAL T anders by mouth. Active Completed/Discontinued Medications Medication Drug Class(es) Dates Sig (Normalized) Sig (Original) amoxicillin 500 mg oral tablet (1 source) Penicillin-class Antibacterial Start: 11-22-2023 End: 07-07-2024 take 1 tablet by mouth three times daily Amoxicillin 500 mg tablet Discontinued 500 mg PO THREE TIMES A DAY November 22, 2023 12:00am Kirk 20th, 2024 11:47am amoxicillin 875 mg / clavulanate 125 mg oral tablet (1 source) Penicillin-class Antibacterial Start: 10-05-2022 End: 06-18-2023 Amoxicillin-Pot Clavulanate 875-125 mg tablet Discontinued 1 {tbl} PO TWICE A DAY October 05, 2022 12:00am June 18, 2023 9:46am azithromycin 250 mg oral tablet (2 sources) Macrolide Antimicrobial Start: 12-23-2023 End: 07-07-2024 take 2-5 tablets by mouth once daily Azithromycin 250 mg tablet Discontinued 0 PO .COMPLEX December 23, 2023 12:00am July 07, 2024 11:47am take 500 mg today (day 1), then 250 mg for 4 days (days 2-5) PO Start: 12-23-2022 End: 06-18-2023 take 2-5 tablets by mouth once daily Azithromycin 250 mg tablet Discontinued 0 PO .COMPLEX December 23, 2022 12:00am June 18, 2023 9:46am take 500 mg today (day 1), then 250 mg for 4 days (days 2-5) PO benzonatate 200 mg oral capsule (2 sources) Non-narcotic Antitussive Start: 06-28-2023 End: 07-07-2024 take 1 capsule by mouth three times daily as needed for cough Benzonatate 200 mg capsule Discontinued 200 mg PO THREE TIMES A DAY as needed for cough June 28, 2023 1:00am July 07, 2024 11:47am Start: 12-23-2022 End: 06-18-2023 take 2 capsules by mouth three times daily as needed for cough Benzonatate 100 mg capsule Discontinued 200 mg PO THREE TIMES A DAY as needed for cough December 23, 2022 12:00am June 18, 2023 9:46am dexamethasone 6 mg oral tablet (1 source) Corticosteroid Start: 06-18-2023 End: 07-07-2024 take 1 tablet by mouth once daily Dexamethasone 6 mg tablet Discontinued 6 mg PO DAILY June 18, 2023 1:00am July 07, 2024 11:47am gabapentin 300 mg oral capsule (2 sources) Anti-epileptic Agent Start: 09-25-2021 End: 10-23-2021 take 300 mg by mouth once daily Gabapentin Discontinued 300 MG PO DAILY September 25, 2021 9:29am October 23, 2021 11:00am levoFLOXacin 750 mg oral tablet (1 source) Quinolone Antimicrobial Start: 06-28-2023 End: 07-07-2024 take 1 tablet by mouth every twenty-fou r hours Levofloxacin 750 mg tablet Discontinued 750 mg PO Q24H June 28, 2023 1:00am July 07, 2024 11:47am methylPREDNISolone 4 mg oral tablet (2 sources) Corticosteroid Start: 12-23-2023 End: 12-29-2023 take 1 tablet by mouth once Methylprednisolone (Medrol (Chad)) 4 mg tablets,dose pack Discontinued 4 mg PO per package directions 06 01December 23, 2023 12:00am December 28, 2023 12:00am December 29, 2023 12:05am Start: 12-23-2022 End: 12-23-2022 take 1 tablet by mouth once Methylprednisolone (Medrol (Chad)) 4 mg tablets,dose pack Discontinued 4 mg PO per package directions 06 01December 23, 2022 12:00am December 28, 2022 12:00am December 23, 2022 9:10am Problems Active Problems Problem Classification Problem Date Documented Da te Episodic/Chronic Acute bronchitis (1 source) Acute bronchitis; Translations: [Acute bronchitis, unspecified] 10-05-2022 Episodic Chronic obstructive pulmonary disease and bronchiectasis (3 sources) Chronic obstructive lung disease; Translations: [Chronic obstructive pulmonary disease, unspecified] Chronic Disorders of lipid metabolism (4 sources) Pure hypercholesterolemi a; Translations: [Pure hypercholesterolemi a, unspecified] Onset: 11-26-2005 Chronic Heart valve disorders (1 source) Mitral valve prolapse; Translations: [Nonrheumatic mitral (valve) prolapse] 01-26-2022 Chronic Heart valve disorders (1 source) Cardiac murmur, unspecified; Translations: [Cardiac murmur, unspecified] Onset: 12-28-2024 Episodic Nonspecific chest pain (3 sources) Chest pain; Translations: [Chest pain, unspecified] Episodic Other lower respiratory disease (2 sources) Dyspnea on exertion; Translations: [Shortness of breath] 09-25-2021 Episodic Other lower respiratory disease (1 source) Shortness of breath; Translations: [Shortness of breath] Episodic Other non-traumatic joint disorders (1 source) Swelling of joint of left wrist; Translations: [Effusion, left wrist] 05-16-2020 Episodic Other nutritional; endocrine; and metabolic disorders (1 source) Obese class I; Translations: [Obesity, Class I, BMI 30-34.9] Onset: 05-16-2020 05-16-2020 Chronic Other upper respiratory disease (1 source) Bleeding from nose; Translations: [Epistaxis] 07-15-2024 Episodic Other upper respiratory disease (1 source) Epistaxis; Translations: [Epistaxis] Onset: 11-17-2024 Episodic Residual codes; unclassified (2 sources) Family history of coronary arteriosclerosis; Translations: [Family history of ischemic heart disease and other diseases of the circulatory system] 09-25-2021 Episodic Residual codes; unclassified (1 source) Family history of ischemic heart disease and other diseases of the circulatory system; Translations: [Family history of ischemic heart disease] Episodic Viral infection (1 source) Disease caused by 2019-nCoV; Translations: [COVID-19] 06-18-2023 Episodic Past or Other Problems Problem Classification [...] Test Name Value Interpretation Reference Range Facility Echocardiogram study reportO rdered By: Carolynn Venegas on 12-24-2024 Study report [facility] [address] [place] [address]. [place] [address] Echo Complete W/ Contrast 12/22/24 0958 MR#: [id number] Acct: [id number] Name: DINO LAWSON Rep #:[id number] : 1955 69 From: Carolynn yepez MD Attending Dr: Dr. Suresh Castillo MD S tatus: REG CLI Ordering Dr: Suresh Castillo MD Date: 01/10 Location: [facility] Sex: M C Admitted: Reason For Study Reason For Study: murmur Procedure This was a 2D Doppler, Color Flow transthoracic echocardiogram. The study was technically difficult. Due to body habitus. Contrast injection was performed. Exam performed in department. Left Ventricle Normal LV size. The estimated ejection fraction is 60 %. No evidence for diastolic dysfunction. No regional wall motion abnormalities noted. Right Ventricle Normal RV size. Normal systolic function. Atria The left atrium is mildly enlarged. Normal right atrium. No doppler evidence forASD. Mitral Valve There is no mitral valve stenosis. Mild (1+) mitral valve insufficiency. Tricuspid Valve There is no tricuspid stenosis. Trivial tricuspid valve insufficiency. Unable toestimate RV systolic pressure due to insufficient tricuspid regurgitant envelope. Aortic Valve Trisinus/trileaflet aortic valve. Aortic sclerosis, no stenosis. There is no aortic stenosis. No aortic valve insufficiency. Pulmonic Valve There is no pulmonic valvular stenosis. No pulmonic valve insufficiency. Great Vessels Normal sized aortic root. Pericardium/Pleural No pericardial effusion. Medication 20 gauge I.V. with prn adaptor inserted into right arm. Diluted definity 3.0ml given slow IV push to enhance endocardial definition. MMode/2D Measurements & Calculations LVIDd: 5.6 cm IVSd: 1.2 cm Ao root diam: 3.2 cm LVIDs: 3.4 cm LVPWd: 1.4 cm RVDd: 2.3 cm FS: 39.1 % LAV(MOD-bp): 79.5 ml LVAd ap4: 33.9 cm2 LVAd ap2: 33.7 cm2 LAV(MOD-bp) Indexed: 39.3 ml/m2 LVLd ap4: 8.1 cm LVLd ap2: 8.3 cm LAV(MOD-sp2): 73.9 ml EDV(MOD-sp4): 116.6 ml EDV(MOD-sp2): 113.7 ml LAV(MOD-sp4): 86.6 ml EDV(sp4-el): 120.1 ml EDV(sp2-el): 115.6 ml LVAs ap4: 19.7 cm2 LVAs ap2: 19.2 cm2 LVLs ap4: 7.3 cm LVLs ap2: 7.2 cm ESV(MOD-sp4): 44.9 ml ESV(MOD-sp2): 42.3 ml ESV(sp4-el): 45.6 ml ESV(sp2-el): 43.7 ml EF(MOD-sp4): 61.5 % EF(MOD-sp2): 62.8 % EF(sp4-el): 62.1 % SV(MOD-sp4): 71.7 ml SV(MOD-sp2): 71.4 ml SV(sp4-el): 74.6 ml SI(MOD-sp4): 35.5 ml/m2 SI(MOD-sp2): 35.3 ml/m2 LA A4 area: 25.0 cm2 LA dimension(2D): 4.8 cm RA A4 area: 14.0 cm2 TAPSE: 2.2 cm Time Measurements MV dec time: 0.20 sec Doppler Measurements & Calculations MV E max andrew: 109.9 cm/sec Lat Peak E' Andrew: 14.6 cm/sec Med Peak E' Andrew: 11.7 cm/sec MV A max andrew: 76.6 cm/sec E/E' lat: 7.5 E/E' med: 9.4 MV E/A: 1.4 MV V2 max: 122.5 cm/sec MV P1/2t max andrew: 119.9 cm/sec Ao V2 max: 116.3 cm/sec MV max P.0 mmHg MV P1/2t: 58.8 msec Ao max P.4 mmHg MV V2 mean: 65.0 cm/sec MV dec slope: 597.0 cm/sec2 Ao V2 mean: 80.1 cm/sec MV mean P.0 mmHg MVA(P1/2t): 3.7 cm2 Ao mean P.9 mmHg MV V2 VTI: 28.4 cm Ao V2 VTI: 24.3 cm AV (velocity ratio): 0.74 LV V1 max: 93.1 cm/sec MR max andrew: 481.2 cm/sec PA V2 max: 87.2 cm/sec LV V1 max P.5 mmHg MR max P.2 mmHg PA V2 mean: 59.2 cm/sec LV V1 mean P.9 mmHg MR mean andrew: 378.7 cm/sec LV V1 mean: 65.0 cm/sec MR mean P.8 mmHg LV V1 VTI: 18.1 cm MR VTI: 129.1 cm TR max andrew: 226.6 cm/sec TR max P.5 mmHg ECHO/Echo Complete W/ Contrast Interpretation Summary The estimated ejection fraction is 60 %. No evidence for diastolic dysfunction. Mild (1+) mitral valve insufficiency. The left atrium is mildly enlarged. ___ Ordering Physician: Suresh Castillo Referring Physician: Suresh Castillo Performed By: Joyce Barnes, RDCS, RVT 12/24/241654 Date _ Carolynn Venegas MD CC: Dr. Suresh Castillo MD ~ Date Dictated: 12/22/24957 Date Transcribed: 12/24/241654 Scientific Affairs Manager: Signed [facility] Work Phone: Echo Complete W/ Contraston 12-22-2024 Echo Complete W/ Contrast [facility] [address] [place] [address] Echo Complete W/ Contrast 12/22/24957 MR#: [id number] Acct: [id number] Name: DINO LAWSON Rep #: [id number] : 1955 69 From: Carolynn Venegas MD Attending Dr: Dr. Suresh Castillo MD Status: REG C PHILIP Ordering Dr: Suresh Castillo MD Date: 12/22/24 Location: [facility] Sex: M C Admitted: Reason For Study Reason For Study: murmur Procedure This was a 2D Doppler, Color Flow transthoracic echocardiogram. The study was technically difficult. Due to body habitus. Contrast injection was performed. Exam performed in department. Left Ventricle Normal LV size. The estimated ejection fraction is 60 %. No evidence for diastolic dysfunction. No regional wall motion abnormalities noted. Right Ventricle Normal RV size. Normal systolic function. Atria The left atrium is mildly enlarged. Normal right atrium. No doppler evidence for ASD. Mitral Valve There is no mitral valve stenosis. Mild (1+) mitral valve insufficiency. Tricuspid Valve There is no tricuspid stenosis. Trivial tricuspid valve insufficiency. Unable to estimate RV systolic pressure due to insufficient tricuspid regurgitant envelope. Aortic Valve Trisinus/trileaflet aortic valve. Aortic sclerosis, no stenosis. There is no aortic stenosis. No aortic valve insufficiency. Pulmonic Valve There is no pulmonic valvular stenosis. No pulmonic valve insufficiency. Great Vessels Normal sized aortic root. Pericardium/Pleural No pericardial effusion. Medication 20 gauge I.V. with prn adaptor inserted into right arm. Diluted definity 3.0ml given slow IV push to enhance endocardial definition. MMode/2D Measurements Calculations LVIDd: 5.6 cm IVSd: 1.2 cm Ao root diam: 3.2 cm LVIDs: 3.4 cm LVPWd: 1.4 cm RVDd: 2.3 cm FS: 39.1 % LAV(MOD-bp): 79.5 ml LVAd ap4: 33.9 cm2 LVAd ap2: 33.7 cm2 LAV(MOD-bp) Indexed: 39.3 ml/m2 LVLd ap4: 8.1 cm LVLd ap2: 8.3 cm LAV(MOD-sp2): 73.9 ml EDV(MOD-sp4): 116.6 ml EDV(MOD-sp2): 113.7 ml LAV(MOD-sp4): 86.6 ml EDV(sp4-el): 120.1 ml EDV(sp2-el): 115.6 ml LVAs ap4: 19.7 cm2 LVAs ap2: 19.2 cm2 LVLs ap4: 7.3 cm LVLs ap2: 7.2 cm ESV(MOD-sp4): 44.9 ml ESV(MOD-sp2): 42.3 ml ESV(sp4-el): 45.6 ml ESV(sp2-el): 43.7 ml EF(MOD-sp4): 61.5 % EF(MOD-sp2): 62.8 % EF(sp4-el): 62.1 % SV(MOD-sp4): 71.7 ml SV(MOD-sp2): 71.4 ml SV(sp4-el): 74.6 ml SI(MOD-sp4): 35.5 ml/m2 SI(MOD-sp2): 35.3 ml/m2 LA A4 area: 25.0 cm2 LA dimension(2D): 4.8 cm RA A4 area: 14.0 cm2 TAPSE: 2.2 cm Time Measurements MV dec time: 0.20 sec Doppler Measurements Calculations MV E max andrew: 109.9 cm/sec Lat Peak E' Andrew: 14.6 cm/sec Med Peak E' Andrew: 11.7 cm/sec MV A max andrew: 76.6 cm/sec E/E' lat: 7.5 E/E' med: 9.4 MV E/A: 1.4 MV V2 max: 122.5 cm/sec MV P1/2t max andrew: 119.9 cm/sec Ao V2 max: 116.3 cm/sec MV max P.0 mmHg MV P1/2t: 58.8 msec Ao max P.4 mmHg MV V2 mean: 65.0 cm/sec MV dec slope: 597.0 cm/sec2 Ao V2 mean: 80.1 cm/sec MV mean P.0 mmHg MVA(P1/2t): 3.7 cm2 Ao mean P.9 mmHg MV V2 VTI: 28.4 cm Ao V2 VTI: 24.3 cm AV (velocity ratio): 0.74 LV V1 max: 93.1 cm/sec MR max andrew: 481.2 cm/sec PA V2 max: 87.2 cm/sec LV V1 max P.5 mmHg MR max P.2 mmHg PA V2 mean: 59.2 cm/sec LV V1 mean P.9 mmHg MR mean andrew: 378.7 cm/sec LV V1 mean: 65.0 cm/sec MR mean P.8 mmHg LV V1 VTI: 18.1 cm MR VTI: 129.1 cm TR max andrew: 226.6 cm/sec TR max P.5 mmHg ECHO/Echo Complete W/ Contrast Interpretation Summary The estimated ejection fraction is 60 %. No evidence for diastolic dysfunction. Mild (1+) mitral valve insufficiency. The left atrium is mildly enlarged. ___ Ordering Physician: Suresh Castillo Referring Physician: Suresh Castillo Performed By: Joyce Barnes, KYARA, RVT 12/24/241654 Date Carolynn Venegas MD CC: Dr. Suresh Castillo MD Date Dictated: 12/22/2458 Date Gomez (more content not included)... Normal [facility] Emergency Department Summary on 07-07-2024 Emergency Department Summary [facility] Medical Records Department [address] [place] [address] Emergency Department Summary 07/07/24 MR#: [id number] Acct: [id number] Name: DINO LAWSON Rep #: [id number] : 1955 69 From: Palmer Whittaker DO [...] follow-up with them on his blood pressure. [facility] Medical History Acute bronchitis, unspecified Arthritis COPD [...] following commands knew that he was at [facility] 2023 Skin: Warm, dry, intact Const Vital [...] blood thinnin (more content not included)... 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 Is patient in pain?: No [...] Performing Location: [facility] Administered by: Tabitha Levnie on 04/22/24 11:09 Dose Route Admin Location Dispensed Lot Number Expiration Date [facility] Man ufacturer 0.5 mL IM Right Deltoid 0.5 mL [id number] 05/27/26 92425-003-48 Compring VIS Given Date VIS Provided VIS Publication Date 04/22/24 Single Vaccine 21 Eligibility Eligibility Date Funding Source Not Applicable Assessment and Plan Assessment and Plan Orders: Orders Tdap Immunization Today Z23 - Encounter for immunization Clinical Quality Measures Falls Risk Screening/Assistive Devices Have you fallen in the past year?: No 04/22/24 1143 Date Jaclyn Gordon Signature: Date (if applicable) CC: Normal [facility] Low Dose CT Lung Screeningon 04-01-[address] Lung Screening [facility] Imaging Services [address] [place], [place] [address] Low Dose CT Lung Screening MR#: [id number] Acct: [id number] Name: DINO LAWSON Rep #: [id number] : 1955 M 68 From: Ferdinand Reed MD PCP: Dr. Suresh Castillo MD Status: [facility] Study: Low Dose CT Lung Screening Date of Exam: 04/01 Exam# [id number] Ordering Dr: Suresh Castillo MD [id number] STUDY: LOW DOSE CT LUNG CANCER SCREENING [...] 10:10 EDT Reading Location ID and State: [address] [place] [address] , Service support , CC: Dr. Suresh Castillo MD Scientific Affairs Manager: Signed Normal [facility] CBC W/Diff, Automatedon 08-0 Absolute Lymph 1.71 X10 3/uL Normal 0.83-4.51 [facility] Comment on above: Order Comment: Order Date: 02/18/24 Order Info: 0184-1 - CBCD Performed By: #### L 500.4050, L501.9910, L100.0100, L500.4100 #### [facility] [address] [place], [place], [id number] [phone] Absolute Neut 5.2 X10 3/uL Normal 2.0-7.7 [facility] Comment on above: Order Comment: Order Date: 02/18/24 Order Info: 0184-1 - CBCD Performed By: #### L 500.4050, L501.9910, L100.0100, L500.4100 #### [facility] [address] [place], [address] Basophils/100 WBC (Bld) 0.6 % Normal 0-1 [facility] Comment on above: Order Comment: Order Date: 02/18/24 Order Info: 0184-1 - CBCD Performed By: #### L 500.4050, L501.9910, L100.0100, L500.4100 #### [facility] [address] [place], [address] Eosinophils/100 WBC (Bld) 2.3 % Normal 0-5 [facility] Comment on above: Order Comment: Order Date: 02/18/24 Order Info: 0184-1 - CBCD Performed By: #### L 500.4050, L501.9910, L100.0100, L500.4100 #### [facility] [address] [place], [address] Erythrocyte distribution width (RBC) [Ratio] 13.8 % Normal 11.6-14.6 [facility] Comment on above: Order Comment: Order Date: 02/18/24 Order Info: 0184-1 - CBCD Performed By: #### L 500.4050, L501.9910, L100.0100, L500.4100 #### [facility] [address] [place], [address] Hematocrit (Bld) [Volume fraction] 48.3 % Normal 40-54 [facility] Comment on above: Order Comment: Order Date: 02/18/24 Order Info: 0184-1 - CBCD Performed By: #### L 500.4050, L501.9910, L100.0100, L500.4100 #### [facility] [address] [place], [address] Hemoglobin (Bld) [Mass/Vol] 15.3 g/dL Normal 13.0-16.5 [facility] Comment on above: Order Comment: Order Date: 02/18/24 Order Info: 0184-1 - CBCD Performed By: #### L 500.4050, L501.9910, L100.0100, L500.4100 #### [facility] [address] [place], [address] IG% 0.600 Normal 0.0-0.9 [facility] Comment on above: Order Comment: Order Date: 02/18/24 Order Info: 0184- - CBCD Result Comment: IG% - Immature Granulocytes (promyelocytes, myelocytes and metamyelocytes) > 1% indicates that a LEFT SHIFT is Present. Performed By: #### L 500.4050, L501.9910, L100.0100, L500.4100 #### [facility] [address] [place], [address] Lymphocytes/100 WBC (Bld) 22.0 % Normal 19-41 [facility] Comment on above: Order Comment: Order Date: 02/18/24 Order Info: 018- - CBCD Performed By: #### L 500.4050, L501.9910, L100.0100, L500.4100 #### [facility] [address] [place], [address] MCH (RBC) [Entitic mass] 29.3 pg Normal 27.0-32.0 [facility] Comment on above: Order Comment: Order Date: 02/18/24 Order Info: 0184- - CBCD Performed By: #### L 500.4050, L501.9910, L100.0100, L500.4100 #### [facility] [address] [place], [address] MCHC (RBC) [Mass/Vol] 31.7 g/dL Low 32-36 [facility] Comment on above: Order Comment: Order Date: 02/18/24 Order Info: 0184- - CBCD Performed By: #### L 500.4050, L501.9910, L100.0100, L500.4100 #### [facility] [address] [place], [address] MCV (RBC) [Entitic vol] 92.5 fL Normal 80-94 [facility] Comment on above: Order Comment: Order Date: 02/18/24 Order Info: 0184- - CBCD Performed By: #### L 500.4050, L501.9910, L100.0100, L500.4100 #### [facility] [address] [place], [address] Monocytes/100 WBC (Bld) 8.2 % Normal 0-10 [facility] Comment on above: Order Comment: Order Date: 02/18/24 Order Info: 0184-1 - CBCD Performed By: #### L 500.4050, L501.9910, L100.0100, L500.4100 #### [facility] [address] [place], [address] Neutrophils/100 WBC (Bld) 66.3 % Normal 47-70 [facility] Comment on above: Order Comment: Order Date: 02/18/24 Order Info: [id number]- - CBCD Performed By: #### L 500.4050, L501.9910, L100.0100, L500.4100 #### [facility] [address] [place], [address] Nucleated RBC (Bld) [#/Vol] 0 10*3/uL Normal 0-5 [facility] Comment on above: Order Comment: Order Date: 02/18/24 Order Info: [id number]- - CBCD Performed By: #### L 500.4050, L501.9910, L100.0100, L500.4100 #### [facility] [address] [place], [address] Platelet mean volume (Bld) [Entitic vol] 10.2 fL Normal 6.2-12.0 [facility] Comment on above: Order Comment: Order Date: 02/18/24 Order Info: [id number] - CBCD Performed By: #### L 500.4050, L501.9910, L100.0100, L500.4100 #### [facility] [address] [place], [address] Platelets (Bld) [#/Vol] 314 10*3/uL Normal 150-450 [facility] Comment on above: Order Comment: Order Date: 02/18/24 Order Info: [id number] - CBCD Performed By: #### L 500.4050, L501.9910, L100.0100, L500.4100 #### [facility] [address] [place], [address] RBC (Bld) [#/Vol] 5.22 10*6/uL Normal 4.6-6.2 [facility] Comment on above: Order Comment: Order Date: 02/18/24 Order Info: [id number] - CBCD Performed By: #### L 500.4050, L501.9910, L100.0100, L500.4100 #### [facility] [address] [place], [address] RDW SD 46.5 fl High 35.1-43.9 [facility] Comment on above: Order Comment: Order Date: 02/18/24 Order Info: [id number]- - CBCD Performed By: #### L 500.4050, L501.9910, L100.0100, L500.4100 #### [facility] [address] [place], [address] WBC (Bld) [#/Vol] 7.8 10*3/uL Normal 4.4-11.0 [facility] Comment on above: Order Comment: Order Date: 02/18/24 Order Info: [id number] - CBCD Performed By: #### L 500.4050, L501.9910, L100.0100, L500.4100 #### [facility] [address] [place], [address] Comprehensive Metabolic Prof mdon 02-21-2024 Albumin [Mass/Vol] 3.7 g/dL Normal 3.2-5.0 [facility] Comment on above: Order Comment: Order Date: 02/18/24 Order Info: [id number] - CMP Order Info: [id number] - LIPID Order Info: [id number] - PSA Performed By: #### L 500.4050, L501.9910, L100.0100, L500.4100 #### [facility] [address] [place], [address] Albumin/Globulin [Mass ratio] 1.0 {ratio} Normal 0.9-2.4 [facility] Comment on above: Order Comment: Order Date: 02/18/24 Order Info: [id number] - CMP Order Info: [id number] - LIPID Order Info: [id number] - PSA Performed By: #### L 500.4050, L501.9910, L100.0100, L500.4100 #### [facility] [address] [place], [address] ALK P 103 U/L Normal 45-117 [facility] Comment on above: Order Comment: Order Date: 02/18/24 Order Info: 0786- - CMP Order Info: [id number] - LIPID Order Info: [id number] - PSA Performed By: #### L 500.4050, L501.9910, L100.0100, L500.4100 #### [facility] [address] [place], [address] ALT [Catalytic activity/Vol] 28 U/L Normal 16-61 [facility] Comment on above: Order Comment: Order Date: 02/18/24 Order Info: 0786- - CMP Order Info: [id number] - LIPID Order Info: [id number] - PSA Performed By: #### L 500.4050, L501.9910, L100.0100, L500.4100 #### [facility] [address] [place], [address] AST [Catalytic activity/Vol] 23 U/L Normal 15-37 [facility] Comment on above: Order Comment: Order Date: 02/18/24 Order Info: [id number] - CMP Order Info: [id number] - LIPID Order Info: [id number] - PSA Performed By: #### L 500.4050, L501.9910, L100.0100, L500.4100 #### [facility] [address] [place], [address] Bilirubin [Mass/Vol] 0.50 mg/dL Normal 0.20-1.00 [facility] Comment on above: Order Comment: Order Date: 02/18/24 Order Info: [id number] - CMP Order Info: [id number] - LIPID Order Info: [id number] - PSA Result Comment: For patients on eltrombopag therapy, use of Dimension [place] TBIL is not recommended. Performed By: #### L 500.4050, L501.9910, L100.0100, L500.4100 #### [facility] [address] [place], [address] BUN/CRE 22.4 RATIO High 10-20 [facility] Comment on above: Order Comment: Order Date: 02/18/24 Order Info: 07- - CMP Order Info: [id number] - LIPID Order Info: [id number] - PSA Performed By: #### L 500.4050, L501.9910, L100.0100, L500.4100 #### [facility] [address] [place], [address] CA,Total 9.1 mg/dL Normal 8.5-10.1 [facility] Comment on above: Order Comment: Order Date: 02/18/24 Order Info: 0786- - CMP Order Info: [id number] - LIPID Order Info: [id number] - PSA Performed By: #### L 500.4050, L501.9910, L100.0100, L500.4100 #### [facility] [address] [place], [address] Chloride [Moles/Vol] 110 mmol/L High 98-107 [facility] Comment on above: Order Comment: Order Date: 02/18/24 Order Info: [id number] - CMP Order Info: [id number] - LIPID Order Info: [id number] - PSA Performed By: #### L 500.4050, L501.9910, L100.0100, L500.4100 #### [facility] [address] [place], [address] CO2 [Moles/Vol] 25.0 mmol/L Normal 21.0-32.0 [facility] Comment on above: Order Comment: Order Date: 02/18/24 Order Info: 0786- - CMP Order Info: [id number] - LIPID Order Info: [id number] - PSA Performed By: #### L 500.4050, L501.9910, L100.0100, L500.4100 #### [facility] [address] [place], [address] Creatinine [Mass/Vol] 0.76 mg/dL Normal 0.70-1.30 [facility] Comment on above: Order Comment: Order Date: 02/18/24 Order Info: 0786 - CMP Order Info: [id number] - LIPID Order Info: [id number] - PSA Result Comment: The validity of the calculated GFR GFRAA in patients over 70 years has not been determined. Clinical correlation is essential. Performed By: #### L 500.4050, L501.9910, L100.0100, L500.4100 #### [facility] [address] [place], [address] EST GFR - AA 131 mL/min Normal >60 [facility] Comment on above: Order Comment: Order Date: 02/18/24 Order Info: 0786- - CMP Order Info: [id number] - LIPID Order Info: [id number] - PSA Result Comment: Afri can Portuguese GFR Calc Performed By: #### L 500.4050, L501.9910, L100.0100, L500.4100 #### [facility] [address] [place], [address] GAP 8 Normal 5-15 [facility] Comment on above: Order Comment: Order Date: 02/18/24 Order Info: [id number] - CMP Order Info: - LIPID Order Info: [id number] - PSA Performed By: #### L 500.4050, L501.9910, L100.0100, L500.4100 #### [facility] [address] [place], [address] GFR/1.73 sq M.predicted among non-blacks MDRD (S/P/Bld) [Vol rate/Area] 108 mL/min/{1.73_m2} Normal >60 [facility] Comment on above: Order Comment: Order Date: 02/18/24 Order Info: [id number] - CMP Order Info: - LIPID Order Info: [id number] - PSA Result Comment: Non- GFR Calc Performed By: #### L 500.4050, L501.9910, L100.0100, L500.4100 #### [facility] [address] [place], [address] Globulin (S) [Mass/Vol] 3.6 g/dL Normal 2.2-4.2 [facility] Comment on above: Order Comment: Order Date: 02/18/24 Order Info: [id number] - CMP Order Info: - LIPID Order Info: [id number] - PSA Performed By: #### L 500.4050, L501.9910, L100.0100, L500.4100 #### [facility] [address] [place], [address] Glucose [Mass/Vol] 113 mg/dL High 74-106 [facility] Comment on above: Order Comment: Order Date: 02/18/24 Order Info: [id number] - CMP Order Info: - LIPID Order Info: [id number] - PSA Result Comment: Fast ing Glucose result from 100 to 125 mg/dL suggests IMPAIRED HOMEOSTASIS per A.D.A. criteria. Performed By: #### L 500.4050, L501.9910, L100.0100, L500.4100 #### [facility] [address] [place], [address] Potassium [Moles/Vol] 4.3 mmol/L Normal 3.5-5.1 [facility] Comment on above: Order Comment: Order Date: 02/18/24 Order Info: 0786 - CMP Order Info: [id number] - LIPID Order Info: [id number] - PSA Performed By: #### L 500.4050, L501.9910, L100.0100, L500.4100 #### [facility] [address] [place], [address] Sodium [Moles/Vol] 143 mmol/L Normal 136-145 [facility] Comment on above: Order Comment: Order Date: 02/18/24 Order Info: [id number] - CMP Order Info: - LIPID Order Info: [id number] - PSA Performed By: #### L 500.4050, L501.9910, L100.0100, L500.4100 #### [facility] [address] [place], [address] T PROT 7.3 g/dL Normal 6.4-8.2 [facility] Comment on above: Order Comment: Order Date: 02/18/24 Order Info: 0786 - CMP Order Info: [id number] - LIPID Order Info: [id number] - PSA Performed By: #### L 500.4050, L501.9910, L100.0100, L500.4100 #### [facility] [address] [place], [address] Urea nitrogen [Mass/Vol] 17 mg/dL Normal 7-18 [facility] Comment on above: Order Comment: Order Date: 02/18/24 Order Info: 0786- - CMP Order Info: [id number] - LIPID Order Info: [id number] - PSA Performed By: #### L 500.4050, L501.9910, L100.0100, L500.4100 #### [facility] [address] [place], [address] Lipid Profileon 02-21-2024 Cholesterol [Mass/Vol] 133 mg/dL Normal 200 [facility] Comment on above: Order Comment: Order Date: 02/18/24 Order Info: 0786-1 - CMP Order Info: [id number] - LIPID Order Info: [id number] - PSA Result Comment: <200 mg/dL Desirable 200-240 mg/dL Borderline >240 mg/dL High Risk Performed By: #### L 500.4050, L501.9910, L100.0100, L500.4100 #### [facility] [address] [place], [address] Cholesterol in HDL [Mass/Vol] 42 mg/dL Normal [facility] Comment on above: Order Comment: Order Date: 02/18/24 Order Info: 0786-1 - CMP Order Info: [id number] - LIPID Order Info: 285-1 - PSA Result Comment: The drugs N-Acetylcysteine and Metamizole may falsely depress this assay. Reference Range HDL <40 mg/dL Low HDL Cholesterol HDL >or= 60 mg/dL High HDL Cholesterol Performed By: #### L 500.4050, L501.9910, L100.0100, L500.4100 #### [facility] [address] [place], [address] Cholesterol in LDL [Mass/Vol] 66 mg/dL Normal 0-130 [facility] Comment on above: Order Comment: Order Date: 02/18/24 Order Info: 0786-1 - CMP Order Info: [id number] - LIPID Order Info: [id number] - PSA Performed By: #### L 500.4050, L501.9910, L100.0100, L500.4100 #### [facility] [address] [place], [address] Cholesterol in VLDL [Mass/Vol] 25 mg/dL Normal 5-40 [facility] Comment on above: Order Comment: Order Date: 02/18/24 Order Info: 0786- - CMP Order Info: [id number] - LIPID Order Info: [id number] - PSA Performed By: #### L 500.4050, L501.9910, L100.0100, L500.4100 #### [facility] [address] [place], [place], [address] Triglyceride [Mass/Vol] 127 mg/dL Normal [facility] Comment on above: Order Comment: Order Date: 02/18/24 Order Info: 07 - CMP Order Info: [id number] - LIPID Order Info: [id number] - PSA Result Comment: The drugs N-Acetylcysteine and Metamizole may falsely depress this assay. Serum Triglycerides Reference Interval Normal <150 mg/dL Borderline high 150 - 199 mg/dL High 200 - 499 mg/dL Very High > or = 500 mg/dL Performed By: #### L 500.4050, L501.9910, L100.0100, L500.4100 #### [facility] [address] [place], [place], [address] PSA,Total - Annual Screenon 02-21-2024 PSA,TOT SCREEN 0.48 ng/mL Normal 0.00-4.00 [facility] Comment on above: Order Comment: Order Date: 02/18/24 Order Info: 0786 - CMP Order Info: [id number] - LIPID Order Info: [id number] - PSA Result Comment: This test was performed using the TPSA assay method for the Digital Bloom chemistry system. Values obtained with different assay methods cannot be used interchangably. When changing PSA assays in the course of monitoring a patient, additional sequential testing should be carried out to confirm baseline values. Performed By: #### L 500.4050, L501.9910, L100.0100, L500.4100 #### [facility] [address] [place], [place], [address] CBC W Auto Differential pane l (Bld)on 01-26-2022 Basophils (Bld) [#/Vol] 0.05 10*3/uL Normal <0.11 [facility] Comment on above: Order Comment: Speci men Type: BLOOD SPECIMEN Ordering Facility: [facility] Address: [address] [place] [address], [place] [address] Performed By: #### 5 7021-8 #### [facility] CLIA [id number] [address] [place] [address] [place] Basophils/100 WBC (Bld) 0.7 % Normal [facility] Comment on above: Order Comment: Speci men Type: BLOOD SPECIMEN Ordering Facility: [facility] Address: [address] [place] [address], [place] [address] Performed By: #### 5 7021-8 #### [facility] CLIA [id number] [address] [place] [address] [place] Differential cell count method Nom (Bld) Auto Normal [facility] Comment on above: Order Comment: Speci men Type: BLOOD SPECIMEN Ordering Facility: [facility] Address: [address] [place] [address], [place] [address] Performed By: #### 5 7021-8 #### [facility] CLIA [id number] [address] [place] [address] [place] Eosinophils (Bld) [#/Vol] 0.19 10*3/uL Normal <0.46 [facility] Comment on above: Order Comment: Speci men Type: BLOOD SPECIMEN Ordering Facility: [facility] Address: [address] [place] [address], [place] [address] Performed By: #### 5 7021-8 #### [facility] CLIA [id number] [address] [place] [address] [place] Eosinophils/100 WBC (Bld) 2.6 % Normal [facility] Comment on above: Order Comment: Speci men Type: BLOOD SPECIMEN Ordering Facility: [facility] Address: [address] [place] [address], [place] [address] Performed By: #### 5 7021-8 #### [facility] CLIA [id number] [address] [place] [address] [place] Erythrocyte distribution width (RBC) [Ratio] 14.0 % Normal 11.5-15.0 [facility] Comment on above: Order Comment: Speci men Type: BLOOD SPECIMEN Ordering Facility: [facility] Address: [address] [place] [address] Performed By: #### 5 7021-8 #### [facility] CLIA [id number] [address] [place] [address] [place] Hematocrit (Bld) [Volume fraction] 48.7 % Normal 39.0-51.0 [facility] Comment on above: Order Comment: Speci men Type: BLOOD SPECIMEN Ordering Facility: [facility] Address: [address] [place] [address] Performed By: #### 5 7021-8 #### [facility] [place] [id number] [address] [place] [address] [place] Hemoglobin (Bld) [Mass/Vol] 14.9 g/dL Normal 13.0-17.0 [facility] Comment on above: Order Comment: Speci men Type: BLOOD SPECIMEN Ordering Facility: [facility] Address: [address] [place] [address] Performed By: #### 5 7021-8 #### [facility] CLIA [id number] [address] [place] [address] [place] IMMATURE GRAN % 0.4 % Normal [facility] Comment on above: Order Comment: Speci men Type: BLOOD SPECIMEN Ordering Facility: [facility] Address: [address] [place] [address] Performed By: #### 5 7021-8 #### [facility] CLIA [id number] [address] [place] [address] [place] IMMATURE GRAN ABS 0.03 k/uL Normal <0.10 [facility] Comment on above: Order Comment: Speci men Type: BLOOD SPECIMEN Ordering Facility: [facility] Address: [address] [place] [address], [place] [address] Performed By: #### 5 7021-8 #### [facility] CLIA [id number] [address] [place] [address] [place] Lymphocytes (Bld) [#/Vol] 1.80 10*3/uL Normal 1.00-4.00 [facility] Comment on above: Order Comment: Speci men Type: BLOOD SPECIMEN Ordering Facility: [facility] Address: [address] [place] [address], [place] [address] Performed By: #### 5 7021-8 #### [facility] CLIA [id number] [address] [place] [address] [place] Lymphocytes/100 WBC (Bld) 24.3 % Normal [facility] Comment on above: Order Comment: Speci men Type: BLOOD SPECIMEN Ordering Facility: [facility] Address: [address] [place] [address] Performed By: #### 5 7021-8 #### [facility] CLIA [id number] [address] [place] [address] [place] MCH (RBC) [Entitic mass] 28.7 pg Normal 26.0-34.0 [facility] Comment on above: Order Comment: Speci men Type: BLOOD SPECIMEN Ordering Facility: [facility] Address: [address] [place] [address] Performed By: #### 5 7021-8 #### [facility] CLIA [id number] [address] [place] [address] [place] MCHC (RBC) [Mass/Vol] 30.6 g/dL Normal 30.5-36.0 [facility] Comment on above: Order Comment: Speci men Type: BLOOD SPECIMEN Ordering Facility: [facility] Address: [address] [place] [address] Performed By: #### 5 7021-8 #### [facility] CLIA [id number] [address] [place] [address] [place] MCV (RBC) [Entitic vol] 93.7 fL Normal 80.0-100.0 [facility] Comment on above: Order Comment: Speci men Type: BLOOD SPECIMEN Ordering Facility: [facility] Address: [address] [place] [address] Performed By: #### 5 7021-8 #### [facility] CLIA [id number] [address] [place] [address] [place] Monocytes (Bld) [#/Vol] 0.62 10*3/uL Normal <0.87 [facility] Comment on above: Order Comment: Speci men Type: BLOOD SPECIMEN Ordering Facility: [facility] Address: [address] [place] [address] Performed By: #### 5 7021-8 #### [facility] CLIA [id number] [address] [place] [address] [place] Monocytes/100 WBC (Bld) 8.4 % Normal [facility] Comment on above: Order Comment: Speci men Type: BLOOD SPECIMEN Ordering Facility: [facility] Address: [address] [place] [address] Performed By: #### 5 7021-8 #### [facility] CLIA [id number] [address] [place] [address] [place] Neutrophils (Bld) [#/Vol] 4.73 10*3/uL Normal 1.45-7.50 [facility] Comment on above: Order Comment: Speci men Type: BLOOD SPECIMEN Ordering Facility: [facility] Address: [address] [place] [address] Performed By: #### 5 7021-8 #### [facility] CLIA [id number] [facility] [place] [address] [place] Neutrophils/100 WBC (Bld) 63.6 % Normal [facility] Comment on above: Order Comment: Speci men Type: BLOOD SPECIMEN Ordering Facility: [facility] Address: [address] [place] [address], [place] [address] Performed By: #### 5 7021-8 #### [facility] CLIA [id number] [address] [place] [address] [place] Nucleated RBC (Bld) [#/Vol] 10*3/uL Normal <0.01 [facility] Comment on above: Order Comment: Speci men Type: BLOOD SPECIMEN Ordering Facility: [facility] Address: [address] [place] [address] Performed By: #### 5 7021-8 #### [facility] CLIA [id number] [address] [place] [address] [place] Nucleated RBC/100 WBC (Bld) [Ratio] 0.0 /100 WBC Normal [facility] Comment on above: Order Comment: Speci men Type: BLOOD SPECIMEN Ordering Facility: [facility] Address: [address] [place] [address], [place] [address] Performed By: #### 5 7021-8 #### [facility] CLIA [id number] [address] [place] [address] [place] Platelet mean volume (Bld) [Entitic vol] 10.1 fL Normal 9.0-12.7 [facility] Comment on above: Order Comment: Speci men Type: BLOOD SPECIMEN Ordering Facility: [facility] Address: [address] [place] [address] Performed By: #### 5 7021-8 #### [facility] CLIA [id number] [address] [place] [address] [place] Platelets (Bld) [#/Vol] 359 10*3/uL Normal 150-400 [facility] Comment on above: Order Comment: Speci men Type: BLOOD SPECIMEN Ordering Facility: [facility] Address: [address] [place] [address], [place] [address] Performed By: #### 5 7021-8 #### [facility] CLIA [id number] [address] [place] [address] [place] RBC (Bld) [#/Vol] 5.20 10*6/uL Normal 4.20-6.00 [facility] Comment on above: Order Comment: Speci men Type: BLOOD SPECIMEN Ordering Facility: [facility] Address: [address] [place] [address], [place] [address] Performed By: #### 5 7021-8 #### [facility] CLIA [id number] [address] [place] [address] [place] WBC (Bld) [#/Vol] 7.42 10*3/uL Normal 3.70-11.00 [facility] Comment on above: Order Comment: Speci men Type: BLOOD SPECIMEN Ordering Facility: [facility] Address: [address] [place] [address], [place] [id number] Performed By: #### 5 7021-8 #### [facility] CLIA [id number] [address] [place] [address] [place] Comprehensive metabolic 2000 panelon 01-26-2022 Albumin [Mass/Vol] 4.3 g/dL Normal 3.9-4.9 [facility] Comment on above: Order Comment: Speci men Type: BLOOD SPECIMEN Ordering Facility: [facility] Address: [address] [place] [address], [place] [address] Performed By: #### 2 4323-8, 70411-4 #### [facility] CLIA [id number] [address] [place] [address] [place] ALP [Catalytic activity/Vol] 104 U/L Normal 38-113 [facility] Comment on above: Order Comment: Speci men Type: BLOOD SPECIMEN Ordering Facility: [facility] Address: [address] [place] [address], [place] [address] Performed By: #### 2 4323-8, 50959-0 #### [facility] CLIA [id number] [address] [place] [address] [place] ALT [Catalytic activity/Vol] 22 U/L Normal 10-54 [facility] Comment on above: Order Comment: Speci men Type: BLOOD SPECIMEN Ordering Facility: [facility] Address: [address] [place] [address], [place] [address] Performed By: #### 2 4323-8, 78543-1 #### [facility] CLIA [id number] [address] [place] [address] [place] Anion gap [Moles/Vol] 10 mmol/L Normal 9-18 [facility] Comment on above: Order Comment: Speci men Type: BLOOD SPECIMEN Ordering Facility: [facility] Address: [address] [place] [address], [place] [address] Performed By: #### 2 4323-8, 45020-7 #### [facility] CLIA [id number] [address] [place] [address] [place] AST [Catalytic activity/Vol] 25 U/L Normal 14-40 [facility] Comment on above: Order Comment: Speci men Type: BLOOD SPECIMEN Ordering Facility: [facility] Address: [address] [place] [address], [place] [address] Performed By: #### 2 4323-8, 91993-7 #### [facility] CLIA [id number] [address] [place] [address] [place] Bilirubin [Mass/Vol] 0.4 mg/dL Normal 0.2-1.3 [facility] Comment on above: Order Comment: Speci men Type: BLOOD SPECIMEN Ordering Facility: [facility] Address: [address] [place] [address], [place] [address] Performed By: #### 2 4323-8, 97780-1 #### [facility] CLIA [id number] [address] [place] [id number] [place] Calcium [Mass/Vol] 9.6 mg/dL Normal 8.5-10.2 [facility] Comment on above: Order Comment: Speci men Type: BLOOD SPECIMEN Ordering Facility: [facility] Address: [address] [place] [address], [place] [address] Performed By: #### 2 4323-8, 01970-4 #### [facility] CLIA [id number] [address] [place] [address] [place] Chloride [Moles/Vol] 105 mmol/L Normal 97-105 [facility] Comment on above: Order Comment: Speci men Type: BLOOD SPECIMEN Ordering Facility: [facility] Address: [address] [place] [address], [place] [address] Performed By: #### 2 4323-8, 50632-0 #### [facility] CLIA [id number] [address] [place] [address] [place] CO2 [Moles/Vol] 26 mmol/L Normal 22-30 [facility] Comment on above: Order Comment: Speci men Type: BLOOD SPECIMEN Ordering Facility: [facility] Address: [address] [place] [address], [place] [address] Performed By: #### 2 4323-8, 41219-4 #### [facility] CLIA [id number] [address] [place] [address] [place] Creatinine [Mass/Vol] 0.80 mg/dL Normal 0.73-1.22 [facility] Comment on above: Order Comment: Speci men Type: BLOOD SPECIMEN Ordering Facility: [facility] Address: [address] [place] [address], [place] [address] Performed By: #### 2 4323-8, 76587-6 #### [facility] CLIA [id number] [address] [place] [id number] [place] ESTIMATED GLOMERULAR FILTRATION RATE 97 mL/min/1.73m??? Normal >=60 [facility] Comment on above: Order Comment: Fito velez Type: BLOOD SPECIMEN Ordering Facility: [facility] Address: [address] [place] [address], [place] [address] Result Comment: Day mated Glomerular Filtration Rate [...] actual GFR. Performed By: #### 2 4323-8, 78116-7 #### [facility] CLIA [id number] [address] [place] [address] [place] Glucose [Mass/Vol] 89 mg/dL Normal 74-99 [facility] Comment on above: Order Comment: Fito velez Type: BLOOD SPECIMEN Ordering Facility: [facility] Address: [address] [place] [address], [place] [address] Result Comment: The [place] Diabetes Association (ADA) provides guidance for cutoff [...] Standards of Medical Care in Diabetes 2016, [place] Diabetes Association. Diabetes Care. 2016.39(Suppl 1). Performed By: #### 2 4323-8, 47424-7 #### [facility] CLIA [id number] [address] [place] [address] [place] Potassium [Moles/Vol] 3.9 mmol/L Normal 3.7-5.1 [facility] Comment on above: Order Comment: Fito velez Type: BLOOD SPECIMEN Ordering Facility: [facility] Address: [address] [facility], [place] [address] Performed By: #### 2 4323-8, 42306-7 #### [facility] CLIA [id number] [address] [place] [address] [place] Protein [Mass/Vol] 7.0 g/dL Normal 6.3-8.0 [facility] Comment on above: Order Comment: Speci men Type: BLOOD SPECIMEN Ordering Facility: [facility] Address: [address] [place] [address], [place] [address] Performed By: #### 2 4323-8, 42748-7 #### [facility] CLIA [id number] [address] [place] [address] [place] Sodium [Moles/Vol] 141 mmol/L Normal 136-144 [facility] Comment on above: Order Comment: Speci men Type: BLOOD SPECIMEN Ordering Facility: [facility] Address: [address] [place] [address], [place] [address] Performed By: #### 2 4323-8, 13292-7 #### [facility] CLIA [id number] [address] [place] [address] [place] Urea nitrogen [Mass/Vol] 19 mg/dL Normal 9-24 [facility] Comment on above: Order Comment: Speci men Type: BLOOD SPECIMEN Ordering Facility: [facility] Address: [address] [place] [address], [place] [address] Performed By: #### 2 4323-8, 96393-1 #### [facility] CLIA [id number] [address] [place] [address] [place] Lipid 1996 panelon 2 Cholesterol [Mass/Vol] 134 mg/dL Normal <200 [facility] Comment on above: Order Comment: Speci men Type: BLOOD SPECIMEN Ordering Facility: [facility] Address: [address] [facility], [place] [address] Result Comment: <200 mg/dL, Desirable 200-239 mg/dL, Borderline high >239 mg/dL, High Performed By: #### 2 4323-8, 05352-5 #### [facility] CLIA [id number] [address] [place] [address] [place] Cholesterol in HDL [Mass/Vol] 39 mg/dL Low >39 [facility] Comment on above: Order Comment: Fito velez Type: BLOOD SPECIMEN Ordering Facility: [facility] Address: [address] [place] [address], [place] [address] Result Comment: 40-5 9 mg/dL, Acceptable >59 mg/dL, High: Negative risk factor for coronary heart disease <40 mg/dL, Low: Positive risk factor for coronary heart disease Performed By: #### 2 4323-8, 92364-4 #### [facility] CLIA [id number] [address] [place] Cholesterol in LDL [Mass/Vol] 80 mg/dL Normal <100 [facility] Comment on above: Order Comment: Fito [facility] Type: BLOOD SPECIMEN Ordering Facility: [facility] Address: [address] [place] [address], [place] [address] Result Comment: <100 mg/dL, Optimal 100-129 mg/dL, Near optimal/above optimal 130-159 mg/dL, Borderline high 160-189 mg/dL, High >189 mg/dL, Very high Secondary prevention optimal LDL Cholesterol levels are recommended to be < 70 mg/dL Performed By: #### 2 4323-8, 54462-9 #### [facility] CLIA [id number] [address] [place] [address] [place] Cholesterol in LDL/Cholesterol in HDL [Mass ratio] 2.05 {ratio} Normal <2.54 [facility] Comment on above: Order Comment: Rossyjerel velez Type: BLOOD SPECIMEN Ordering Facility: [facility] Address: [address] [place] [address], [place] [address] Result Comment: Refe monice: 1. National Cholesterol Education Program ATP III Guideline At-A-Glance Quick Desk Reference: National Heart, Lung, and Blood Hughes. National Institutes of Health. 2001: NIH Publication No. 01-3305. 2. An International Atherosclerosis Society position paper: global recommendations for the management of dyslipidemia: executive summary, Atherosclerosis. 2014: 232(2):410-413. Performed By: #### 2 4323-8, 42902-1 #### [facility] CLIA [id number] [address] [place] [address] [place] Cholesterol in VLDL [Mass/Vol] 15 mg/dL Normal <30 [facility] Comment on above: Order Comment: Speci men Type: BLOOD SPECIMEN Ordering Facility: [facility] Address: [address] [place] [address] Performed By: #### 2 4328, 72092-9 #### [facility] CLIA [id number] [address] [place] [address] [place] Cholesterol non HDL [Mass/Vol] 95 mg/dL Normal <130 [facility] Comment on above: Order Comment: Fito velez Type: BLOOD SPECIMEN Ordering Facility: [facility] Address: [address] [place] [address], [place] [address] Result Comment: <130 mg/dL, Optimal 130-159 mg/dL, Near optimal/above optimal 160-189 mg/dL, Borderline high 190-219 mg/dL, High >219 mg/dL, Very high Secondary prevention optimal non HDL Cholesterol levels are recommended to be <100 mg/dL Performed By: #### 2 432-8, 45593-9 #### [facility] CLIA [id number] [address] [place] [address] [place] Cholesterol.total/C holesterol in HDL [Mass ratio] 3.44 {ratio} Normal <5.10 [facility] Comment on above: Order Comment: Rossyi men Type: BLOOD SPECIMEN Ordering Facility: [facility] Address: [address] [place] [address], [place] [address] Performed By: #### 2 4323-8, 28945-8 #### [facility] CLIA [id number] [address] [place] [address] [place] FASTING TIME 11 hrs Normal [facility] Comment on above: Order Comment: Speci men Type: BLOOD SPECIMEN Ordering Facility: [facility] Address: [address] [place] [address], [place] [address] Performed By: #### 2 4323-8, 47715-5 #### [facility] CLIA [id number] [address] [place] [address] [place] Triglyceride [Mass/Vol] 76 mg/dL Normal <150 [facility] Comment on above: Order Comment: Speci men Type: BLOOD SPECIMEN Ordering Facility: [facility] Address: [address] [place] [address], [place] [address] Result Comment: <150 mg/dL, Normal 150-199 mg/dL, Borderline high 200-499 mg/dL, High >499 mg/dL, Very high Performed By: #### 2 4323-8, 99758-8 #### [facility] CLIA [id number] [address] [place] [address] [place] Helico pylori Abon 1 H pylori Ab, IgG 0.4 U/mL Normal [facility] Comment on above: Performed By: #### H BA1C, CBCDIF, CMP, MICRO, FT4, MG1, LIPB, TSH #### [facility] Routine Lab [address] [place] [address] #### HPYLRI #### [facility] [address] [place] [address] H. pylori IgG, Qual Negative Normal Negative [facility] Comment on above: Performed By: #### H BA1C, CBCDIF, CMP, MICRO, FT4, MG1, LIPB, TSH #### [facility]ine Lab [address] [place] [address] #### HPYLRI #### [facility] [address] [place], [place] [address] B Natriuretic Peptidon 06-25 B Natriuretic Peptid 8 pg/mL Normal 0-99 [facility] Comment on above: Performed By: #### H BA1C, CBCDIF, CMP, MICRO, FT4, MG1, LIPB, TSH #### [facility] [address] [place] [address] #### HPYLRI #### [facility] [address] [place] [address] CBC and Differentialon 06-24 Abs Baso 0.05 k/uL Normal <0.11 [facility] Comment on above: Performed By: #### H BA1C, CBCDIF, CMP, MICRO, FT4, MG1, LIPB, TSH #### [facility] [address] [place] [phone] #### HPYLRI #### [facility] [address] [place] [address] Abs Real 0.62 k/uL Normal <0.87 [facility] Comment on above: Performed By: #### H BA1C, CBCDIF, CMP, MICRO, FT4, MG1, LIPB, TSH #### [facility] [address] [place] [address] [phone] #### HPYLRI #### [facility] [address] [place] [address] Abs Neut 5.21 k/uL Normal 1.45-7.50 [facility] Comment on above: Performed By: #### H BA1C, CBCDIF, CMP, MICRO, FT4, MG1, LIPB, TSH #### [facility] [address] [place] [address] #### HPYLRI #### [facility] [address] [place] [phone] Absolute nRBC <0.01 Normal <0.01 [facility] Comment on above: Performed By: #### H BA1C, CBCDIF, CMP, MICRO, FT4, MG1, LIPB, TSH #### [facility] [address] [place] [phone] #### HPYLRI #### [facility] [address] [place] [phone] Basophils/100 WBC (Bld) 0.6 % Normal [facility] Comment on above: Performed By: #### H BA1C, CBCDIF, CMP, MICRO, FT4, MG1, LIPB, TSH #### [facility] [address] [place] [phone] #### HPYLRI #### [facility] [address] [place] [phone] DTYPE ADIFF Normal [facility] Comment on above: Performed By: #### H BA1C, CBCDIF, CMP, MICRO, FT4, MG1, LIPB, TSH #### [facility] [address] [place] [phone] #### HPYLRI #### [facility] [address] [place] [phone] Eosinophils (Bld) [#/Vol] 0.32 10*3/uL Normal <0.46 [facility] Comment on above: Performed By: #### H BA1C, CBCDIF, CMP, MICRO, FT4, MG1, LIPB, TSH #### [facility] [address] [place] [phone] #### HPYLRI #### [facility] [address] [place] [phone] Eosinophils/100 WBC (Bld) 4.0 % Normal [facility] Comment on above: Performed By: #### H BA1C, CBCDIF, CMP, MICRO, FT4, MG1, LIPB, TSH #### [facility] [address] [place] [phone] #### HPYLRI #### [facility] [address] [place] [phone] Erythrocyte distribution width (RBC) [Ratio] 13.5 % Normal 11.5-15.0 [facility] Comment on above: Performed By: #### H BA1C, CBCDIF, CMP, MICRO, FT4, MG1, LIPB, TSH #### [facility] [address] [place] [phone] #### HPYLRI #### [facility] [address] [place] [phone] Hematocrit (Bld) [Volume fraction] 49.0 % Normal 39.0-51.0 [facility] Comment on above: Performed By: #### H BA1C, CBCDIF, CMP, MICRO, FT4, MG1, LIPB, TSH #### [facility] [address] [place] [phone] #### HPYLRI #### [facility] [address] [place] [phone] Hemoglobin (Bld) [Mass/Vol] 15.2 g/dL Normal 13.0-17.0 [facility] Comment on above: Performed By: #### H BA1C, CBCDIF, CMP, MICRO, FT4, MG1, LIPB, TSH #### [facility] [address] [place] [phone] #### HPYLRI #### [facility] [address] [place] [phone] Lymphocytes (Bld) [#/Vol] 1.87 10*3/uL Normal 1.00-4.00 [facility] Comment on above: Performed By: #### H BA1C, CBCDIF, CMP, MICRO, FT4, MG1, LIPB, TSH #### [facility] [address] [place] [phone] #### HPYLRI #### [facility] [address] [place] [address] Lymphocytes/100 WBC (Bld) 23.2 % Normal [facility] Comment on above: Performed By: #### H BA1C, CBCDIF, CMP, MICRO, FT4, MG1, LIPB, TSH #### [facility] [address] [place] [address] #### HPYLRI #### [facility] [address] [place] [phone] MCH 29.2 pG Normal 26.0-34.0 [facility] Comment on above: Performed By: #### H BA1C, CBCDIF, CMP, MICRO, FT4, MG1, LIPB, TSH #### [facility] [address] [place] [phone] #### HPYLRI #### [facility] [address] [place] [address] MCHC (RBC) [Mass/Vol] 31.0 g/dL Normal 30.5-36.0 [facility] Comment on above: Performed By: #### H BA1C, CBCDIF, CMP, MICRO, FT4, MG1, LIPB, TSH #### [facility] [address] [place] [address] #### HPYLRI #### [facility] [address] [place] [address] MCV (RBC) [Entitic vol] 94.0 fL Normal 80.0-100.0 [facility] Comment on above: Performed By: #### H BA1C, CBCDIF, CMP, MICRO, FT4, MG1, LIPB, TSH #### [facility] [address] [place] [phone] #### HPYLRI #### [facility] [address] [place] [address] Monocytes/100 WBC (Bld) 7.7 % Normal [facility] Comment on above: Performed By: #### H BA1C, CBCDIF, CMP, MICRO, FT4, MG1, LIPB, TSH #### [facility] [address] [place] [phone] #### HPYLRI #### [facility] [address] [place] [phone] Neutrophils/100 WBC (Bld) 64.5 % Normal [facility] Comment on above: Performed By: #### H BA1C, CBCDIF, CMP, MICRO, FT4, MG1, LIPB, TSH #### [facility] [address] [place] [phone] #### HPYLRI #### [facility] [address] [place] [address] NRBCs 0.0 /100 WBC Normal 0 [facility] Comment on above: Performed By: #### H BA1C, CBCDIF, CMP, MICRO, FT4, MG1, LIPB, TSH #### [facility] [address] [place] [phone] #### HPYLRI #### [facility] [address] [place] [phone] Platelet mean volume (Bld) [Entitic vol] 10.2 fL Normal 9.0-12.7 [facility] Comment on above: Performed By: #### H BA1C, CBCDIF, CMP, MICRO, FT4, MG1, LIPB, TSH #### [facility] [address] [place] [address] #### HPYLRI #### [facility] [address] [place] [phone] Platelets (Bld) [#/Vol] 335 10*3/uL Normal 150-400 [facility] Comment on above: Performed By: #### H BA1C, CBCDIF, CMP, MICRO, FT4, MG1, LIPB, TSH #### [facility] [address] [place] [address] #### HPYLRI #### [facility] [address] [place] [phone] RBC (Bld) [#/Vol] 5.21 10*6/uL Normal 4.20-6.00 [facility] Comment on above: Performed By: #### H BA1C, CBCDIF, CMP, MICRO, FT4, MG1, LIPB, TSH #### [facility] [address] [place] [address] #### HPYLRI #### [facility] [address] [place] [address] WBC (Bld) [#/Vol] 8.07 10*3/uL Normal 3.70-11.00 [facility] Comment on above: Performed By: #### H BA1C, CBCDIF, CMP, MICRO, FT4, MG1, LIPB, TSH #### [facility] [address] [place] [address] #### HPYLRI #### [facility] [address] [place] [address] Comp Metabolic Panelon 06-24 Albumin [Mass/Vol] 4.3 g/dL Normal 3.9-4.9 [facility] Comment on above: Performed By: #### H BA1C, CBCDIF, CMP, MICRO, FT4, MG1, LIPB, TSH #### [facility] [address] [place], [place] [address] #### HPYLRI #### [facility] [address] [place], [place] [address] ALP [Catalytic activity/Vol] 116 U/L High 38-113 [facility] Comment on above: Performed By: #### H BA1C, CBCDIF, CMP, MICRO, FT4, MG1, LIPB, TSH #### [facility] [address] [place] [address] #### HPYLRI #### [facility] [address] [place] [address] ALT [Catalytic activity/Vol] 22 U/L Normal 10-54 [facility] Comment on above: Performed By: #### H BA1C, CBCDIF, CMP, MICRO, FT4, MG1, LIPB, TSH #### [facility] [address] [place] [address] #### HPYLRI #### [facility] [address] [place] [address] Anion gap [Moles/Vol] 11 mmol/L Normal 9-18 [facility] Comment on above: Performed By: #### H BA1C, CBCDIF, CMP, MICRO, FT4, MG1, LIPB, TSH #### [facility] [address] [place] [address] #### HPYLRI #### [facility] [address] [place] [address] AST [Catalytic activity/Vol] 25 U/L Normal 14-40 [facility] Comment on above: Performed By: #### H BA1C, CBCDIF, CMP, MICRO, FT4, MG1, LIPB, TSH #### [facility] [address] [place], [place] [address] #### HPYLRI #### [facility] [address] [place] [address] Bilirubin [Mass/Vol] 0.3 mg/dL Normal 0.2-1.3 [facility] Comment on above: Performed By: #### H BA1C, CBCDIF, CMP, MICRO, FT4, MG1, LIPB, TSH #### [facility] [address] [place] [address] #### HPYLRI #### [facility] [address] [place] [address] Calcium [Mass/Vol] 9.9 mg/dL Normal 8.5-10.2 [facility] Comment on above: Performed By: #### H BA1C, CBCDIF, CMP, MICRO, FT4, MG1, LIPB, TSH #### [facility] [address] [place] [address] #### HPYLRI #### [facility] [address] [place] [address] Chloride [Moles/Vol] 104 mmol/L Normal 97-105 [facility] Comment on above: Performed By: #### H BA1C, CBCDIF, CMP, MICRO, FT4, MG1, LIPB, TSH #### [facility] [address] [place] [address] #### HPYLRI #### [facility] [address] [place] [address] CO2 [Moles/Vol] 26 mmol/L Normal 22-30 [facility] Comment on above: Performed By: #### H BA1C, CBCDIF, CMP, MICRO, FT4, MG1, LIPB, TSH #### [facility] [address] [place] [phone] #### HPYLRI #### [facility] [address] [place] [phone] Creatinine [Mass/Vol] 0.72 mg/dL Low 0.73-1.22 [facility] Reference Lab Comment on above: Performed By: #### H BA1C, CBCDIF, CMP, MICRO, FT4, MG1, LIPB, TSH #### [facility] Routine [facility] [address] [place] [phone] #### HPYLRI #### [facility] [address] [place] [phone] eGFR- Amer. >60 Normal [facility] Reference Lab Comment on above: Performed By: #### H BA1C, CBCDIF, CMP, MICRO, FT4, MG1, LIPB, TSH #### [facility] [address] [place] [phone] #### HPYLRI #### [facility] [address] [place] [phone] eGFR-All Other Races >60 Normal [facility] Reference Lab Comment on above: Performed By: #### H BA1C, CBCDIF, CMP, MICRO, FT4, MG1, LIPB, TSH #### [facility] [address] [place] [phone] #### HPYLRI #### [facility] [address] [place] [phone] Glucose [Mass/Vol] 79 mg/dL Normal 74-99 [facility] Reference Lab Comment on above: Performed By: #### H BA1C, CBCDIF, CMP, MICRO, FT4, MG1, LIPB, TSH #### [facility] [address] [place] [phone] #### HPYLRI #### [facility] [address] [place], [place] [address] Potassium [Moles/Vol] 4.1 mmol/L Normal 3.7-5.1 [facility] Reference [facility] Comment on above: Performed By: #### H BA1C, CBCDIF, CMP, MICRO, FT4, MG1, LIPB, TSH #### [facility] [address] [place], [place] [address] #### HPYLRI #### [facility] [address] [place] [address] Protein [Mass/Vol] 7.1 g/dL Normal 6.3-8.0 [facility] Reference Lab Comment on above: Performed By: #### H BA1C, CBCDIF, CMP, MICRO, FT4, MG1, LIPB, TSH #### [facility] [address] [place] [address] #### HPYLRI #### [facility] [address] [place] [address] Sodium [Moles/Vol] 141 mmol/L Normal 136-144 [facility] Reference Lab Comment on above: Performed By: #### H BA1C, CBCDIF, CMP, MICRO, FT4, MG1, LIPB, TSH #### [facility] [address] [place] [address] #### HPYLRI #### [facility] [address] [place], [place] [address] Urea nitrogen [Mass/Vol] 17 mg/dL Normal 9-24 [facility] Reference Lab Comment on above: Performed By: #### H BA1C, CBCDIF, CMP, MICRO, FT4, MG1, LIPB, TSH #### [facility] [address] [place], [place] [address] #### HPYLRI #### [facility] [address] [place] [address] Free T4on 06-24-2021 Free T4 [Mass/Vol] 1.2 ng/dL Normal 0.9-1.7 [facility] Reference Lab Comment on above: Performed By: #### H BA1C, CBCDIF, CMP, MICRO, FT4, MG1, LIPB, TSH #### [facility] [address] [place] [address] #### HPYLRI #### [facility] [address] [place] [address] Hemoglobin A1con 06-24-2021 Glucose [Mass/Vol] 128 mg/dL Normal [facility] Reference Lab Comment on above: Performed By: #### H BA1C, CBCDIF, CMP, MICRO, FT4, MG1, LIPB, TSH #### [facility] [address] [place] [address] #### HPYLRI #### [facility] [address] [place] [address] HbA1c (Bld) [Mass fraction] 6.1 % High 4.3-5.6 [facility] Reference Lab Comment on above: Performed By: #### H BA1C, CBCDIF, CMP, MICRO, FT4, MG1, LIPB, TSH #### [facility] [address] [place] [address] #### HPYLRI #### [facility] [address] [place] [address] Lipid Panel, Basicon 021 Cholesterol [Mass/Vol] 140 mg/dL Normal <200 [facility] Reference Lab Comment on above: Performed By: #### H BA1C, CBCDIF, CMP, MICRO, FT4, MG1, LIPB, TSH #### [facility] [address] [place] [address] #### HPYLRI #### [facility] [address] [place], [place] [phone] Cholesterol in HDL [Mass/Vol] 31 mg/dL Low >39 [facility] Reference Lab Comment on above: Performed By: #### H BA1C, CBCDIF, CMP, MICRO, FT4, MG1, LIPB, TSH #### [facility] [address] [place], [place] [address] #### HPYLRI #### [facility] [address] [place], [place] [phone] Cholesterol in LDL [Mass/Vol] 82 mg/dL Normal <100 [facility] Reference Lab Comment on above: Performed By: #### H BA1C, CBCDIF, CMP, MICRO, FT4, MG1, LIPB, TSH #### [facility] [address] [place] [address] #### HPYLRI #### [facility] [address] [place], [place] [address] Cholesterol in VLDL [Mass/Vol] 27 mg/dL Normal <30 [facility] Reference Lab Comment on above: Performed By: #### H BA1C, CBCDIF, CMP, MICRO, FT4, MG1, LIPB, TSH #### [facility] [address] [place], [place] [address] #### HPYLRI #### [facility] [address] [place], [place] [address] Cholesterol non HDL [Mass/Vol] 109 mg/dL Normal <130 [facility] Reference [facility] Comment on above: Performed By: #### H BA1C, CBCDIF, CMP, MICRO, FT4, MG1, LIPB, TSH #### [facility] [address] [place], [place] [address] #### HPYLRI #### [facility] [address] [place], [place] [address] LDL:HDL Ratio 2.65 High <2.54 [facility] Reference [facility] Comment on above: Performed By: #### H BA1C, CBCDIF, CMP, MICRO, FT4, MG1, LIPB, TSH #### [facility] [address] [place] [address] #### HPYLRI #### [facility] [address] [place] [address] TC:HDL Ratio 4.52 Normal <5.10 [facility] Reference [facility] Comment on above: Performed By: #### H BA1C, CBCDIF, CMP, MICRO, FT4, MG1, LIPB, TSH #### [facility] [address] [place] [address] #### HPYLRI #### [facility] [address] [place] [phone] Triglyceride [Mass/Vol] 135 mg/dL Normal <150 [facility] Reference [facility] Comment on above: Performed By: #### H BA1C, CBCDIF, CMP, MICRO, FT4, MG1, LIPB, TSH #### [facility] [address] [place] [phone] #### HPYLRI #### [facility] [address] [place] [address] Magnesiumon 06-24-2021 Magnesium [Mass/Vol] 2.2 mg/dL Normal 1.7-2.3 [facility] Reference [facility] Comment on above: Performed By: #### H BA1C, CBCDIF, CMP, MICRO, FT4, MG1, LIPB, TSH #### [facility] [address] [place] [address] #### HPYLRI #### [facility] [address] [place] [address] TPO Antibodyon 06-24-2021 TPO Antibody <1.0 Normal <5.6 [facility] Reference Lab Comment on above: Performed By: #### H BA1C, CBCDIF, CMP, MICRO, FT4, MG1, LIPB, TSH #### [facility] Routine Lab [address] [place] [phone] #### HPYLRI #### [facility] [address] [place] [address] TSHon 06-24-2021 TSH Qn 3.280 m[IU]/L Normal 0.270-4.200 [facility] Reference Lab Comment on above: Performed By: #### H BA1C, CBCDIF, CMP, MICRO, FT4, MG1, LIPB, TSH #### [facility] [address] [place] [address] #### HPYLRI #### [facility] [address] [place] [phone] Lipid Panel, Basicon 021 Fasting Time UN Normal [facility] Reference Lab Comment on above: Performed By: #### H BA1C, CBCDIF, CMP, MICRO, FT4, MG1, LIPB, TSH #### [facility] Routine Lab [address] [place] [address] #### HPYLRI #### [facility] [address] [place] [phone] XR Wrist - left PA and Later al and Obliqueon 05-16-2020 IMPRESSION: 1. 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 2. 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 Scientific Affairs Manager: PSCB Transcribe Date/Time: May 16 2020 4:31P Dictated by : GILBERTO FERRER MD This examination was interpreted and the report reviewed and electronically signed by: GILBERTO FERRER MD on May 16 2020 4:45PM [facility] DIVISION OF RADIOLOGY * * *Final [...] soft tissue swelling. DIVISION OF RADIOLOGY Provider, [facility] - 05/16/2020 * * *Final Report* * [...] are suggestive of early scapholunate advanced collapse. Scientific Affairs Manager: BIRDIE Transcribe Date/Time: May 16 2020 4:31P Dictated by : GILBERTO FERRER MD This examination was interpreted and the report reviewed and electronically signed by: GILBERTO FERRER MD on May 16 2020 4:45PM EST [facility] Radiology Study observation (narrative) [facility] XR Wrist - left PA and Later al and ObliqueOrdered By: Ccf Provider on 05-16-2020 [facility] ANES POSTPROC EVALon 020 ANES POSTPROC EVAL HNO ID: [id number] Author: Shameka Rodriguez Service: ? Author Type: Anesthesiologist Type: Anesthesia Postprocedure Evaluation Filed: 04/10/2020 4:19 PM Note Text: POST ANESTHESIA EVALUATION NOTE : 1955 Procedure Summary Date: 04/10/20 Room / Location: [place]06 [place] Anesthesia Start: 1325 Anesthesia Stop: 1418 [...] April 10, 2020 TIME: 4:19 PM CSN: [id number] [facility] ANES PRE-OPon 04-10-2020 ANES PRE-OP HNO ID: [id number] Author: Shameka Rodriguez Service: ? Author Type: [...] April 10, 2020 TIME: 11:08 AM CSN: [id number] Normal [facility] OPERATIVE NOon 04-10-2020 OPERATIVE NO HNO ID: [id number] Author: Blayne Gurrola DPM Service: Podiatry Author Type: Physician Type: Operative Report Filed: 04/11/2020 8:31 AM Note Text: [facility] - Operative Report DINO LAWSON : 1955 AGE: 64. SEX: M PATIENT TYPE: A HOSP SVC: PODI LOCATION: [facility] ATTENDING PHYSICIAN: Blayne Gurrola D.P.M. CSN NUMBER: [id number] DATE OF SURGERY/PROCEDURE: 04/10/2020 INCISION/PROCEDURE START TIME: 1:44 PM INCISION CLOSE/PROCEDURE END TIME: 2:09 PM PREOPERATIVE DIAGNOSIS: 1. 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 2. 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 POSTOPERATIVE DIAGNOSIS: Same SURGEON: Blayne Gurrola D.P.M. EMERGENCY SPILL RESPONSE TECHNICIAN: Ismael, PGY-2. SURGERY/PROCEDURE: Skin biopsy x2, one [...] me in 1 week. Blayne Gurrola D.P.M. RL:[id number] cc: Gina Rowe Normal [facility] PT EDon 04-10-2020 PT ED HNO ID: [id number] Author: Kalin (Rn) JAMMIE Mo Service: Nursing Author Type: Registered Nurse Type: [...] REFERRAL (RECOMMENDATION): None Electronically Signed By: Kalin Mo, RN In Department: [facility] SURGERY [facility] PT ED HNO ID: [id number] Author: Britney (Rn) JAMMIE Cueto Service: ? Author Type: Registered Nurse Type: [...] Signed By: Britney Cueto RN In Department: [facility] SURGERY [facility] SURGICAL PATHOLOGYon 020 SURGICAL PATHOLOGY Specimen originated from [facility] Specimen #: [id number] Submitting Physician: BLAYNE GURROLA M.D. FINAL DIAGNOSIS [...] connective tissue/fascia #4, biopsy (D) - Angiomatosis. BPR/LAUREN/pau 04/15/2020 Talon Ramirez M.D., PhD (Electronic Signature) [...] D1. TN/td 04/11/2020 Gross examination performed at [facility], [address] [place] [address] Date of Report: 04/15/2020 Date of Procedure: 04/10/2020 Date of Receipt: 04/10/2020 Submitted by: BLAYNE GURROLA M.D. Location: [facility] Diagnostic interpretation performed at [facility], [address] [place] [address]. [place] Number: [id number] [facility] NURSING PROGon 04-05-2020 NURSING PROG HNO ID: [id number] Author: Renae Acevedo (Rn) JAMMIE Branham Service: [...] Branham RN April 05, 2020 7:48 AM [facility] HISTORY PHYSICALon 0 HISTORY PHYSICAL HNO ID: [id number] Author: Alana (Azucena) Tien Service: ? Author Type: Nurse Practitioner Type: [...] OR W/O BRSH SPEC 09/20/2019 Colonoscopy - [place] ANESTH,CARDIAC CATH W/CORON ART AND VENT 02/2001 - TOOTH EXTRACTION FAMILY HISTORY Problem Relation Age of Onset - Heart Father [place], TRIPLE CABG - Hypertension Father - Colon Cancer Mother complications of surgery - Hypertension Mother - Heart Mother - other (Other) Sister tuberculosis - Coronary Artery Disease Brother - Coronary Artery Disease Brother massive [place] - Cancer Sister bone cancer SOCIAL HISTORY: [...] fevers. Neuro: No history of TIA's, stroke, TURN MACHINE OPERATOR tumor, impaired sensorium, hemiplegia, paraplegia or quadraplegia. No neurological symptoms or problems. Respiratory: (+) Former smoker-quit 2001. No history of current cough or dyspnea, or pneumonia in the past 6 weeks. No history of respiratory/pulmonary symptoms or problems. Cardiovascular: (+) HLD-controlled on Rx. Last lipid panel 08/2019. (+) Prinzmetal angina-heart cath 2000. No hx of PCI. No history of HTN, angina, CHF, [place] or stent. Denies rest pain, gangrene or [...] 04, 2020 TIME: 2:55 PM PAGER/CONTACT #: [facility] HOSPon 03-22-2020 [facility] 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 [employer] Work Phone: [facility] Work Phone: 10-23-2021 10:58-0400 Body mass index (BMI) [Ratio] 28.1 kg/m2 CERTIFIED ADAPTIVE PHYSICAL EDUCATOR-C [employer] Work Phone: [facility] Work Phone: 10-23-2021 10:58-0400 Body weight 81.64 kg CERTIFIED ADAPTIVE PHYSICAL EDUCATOR-C [employer] Work Phone: [facility] Work Phone: 10-23-2021 10:58-0400 Diastolic blood pressure 92 mm[Hg] CERTIFIED ADAPTIVE PHYSICAL EDUCATOR-C [employer] Work Phone: [facility] Work Phone: 10-23-2021 10:58-0400 Heart rate 72 /min CERTIFIED ADAPTIVE PHYSICAL EDUCATOR-C [employer] Work Phone: [facility] Work Phone: 10-23-2021 10:58-0400 Respiratory rate 18 /min CERTIFIED ADAPTIVE PHYSICAL EDUCATOR-C [employer] Work Phone: [facility] Work Phone: 10-23-2021 10:58-0400 Systolic blood pressure 154 mm[Hg] CERTIFIED ADAPTIVE PHYSICAL EDUCATOR-C [employer] Work Phone: [facility] Work Phone: Encounters Encounter Date Encounter Type Care Provider Facility Start: 12-22-2024 Non-patient / Non-visit Dr. Judy Venegas MD -[facility] Start: 12-22-2024 End: 12-22-2024 ambulatory Suresh Castillo MD Work Phone: [facility] Work Phone: Start: 12-22-2024 End: 12-22-[address] Suresh Castillo MD -[facility] Work Phone: Start: 12-22-2024 End: 12-22-2024 ambulatory Suresh Castillo Facility:[facility] Start: 07-07-2024 End: 07-07-2024 Emergency department patient visit Suresh Castillo Facility:[facility] Start: 04-22-2024 End: 04-22-2024 ambulatory [facility] Facility:[facility] Start: 04-01-2024 End: 04-01-2024 ambulatory [facility] Facility:[facility] Start: 02-21-2024 End: 02-21-2024 [facility] Start: 11-11-2021 Non-patient / Non-visit CERTIFIED ADAPTIVE PHYSICAL EDUCATOR-C Basia Weiss Work Phone: [facility] Start: 11-11-2021 End: 11-11-2021 Patient encounter procedure CERTIFIED ADAPTIVE PHYSICAL EDUCATOR-C Alondra Weiss Work Phone: [facility]-Cardiovascul ar Services Start: 10-23-2021 End: 10-23-2021 Patient encounter procedure CERTIFIED ADAPTIVE PHYSICAL EDUCATOR-C Alondra Weiss Work Phone: [facility] Start: 09-25-2021 Non-patient / Non-visit CERTIFIED ADAPTIVE PHYSICAL EDUCATOR-C Basia Weiss Work Phone: [facility] Start: 05-16-2020 End: 05-16-2020 Subsequent hospital visit by physician Fatimah [facility] Work Phone: Radiology Comment on above: Swelling of joint of left wrist [M25.432] Procedures Date Procedure Procedure Detail Performing Clinician Start: 01-26-2022 Lipid 1996 panel - S joseph or Plasma [facility] [place] Work Phone: Start: 11-11-2021 Cardiovascular stres s test using pharmacologic stress agent KIM Weiss Work Phone: Start: 09-05-2021 PSA screening Comment on above: Performed By: #### H BA1C, CBCDIF, CMP, MICRO, FT4, MG1, LIPB, TSH #### [facility] Routine Lab [address] [place], [place] [address] #### HPYLRI #### [facility] Immun[facility] [address] [place], [place] [address] Start: 05-16-2020 Radex wrist complete minimum 3 views Apolinar Jones MD Work Phone: Start: 09-20-2019 Colonoscopy [facility] [place] Work Phone: Plan of Treatment Date Care Activity Detail Author Start: 05-16-2030 Urine microalbumin profile DTaP,Tdap,Td Vaccine (1 - Tdap) [facility] Comment on above: Postponed from 05/17 (Postponed - Not Clinically Indicated) Start: 2029 RSV Vaccine (1 - 1-d ose 75+ series) RSV Vaccine (1 - 1-dose 75+ series) [facility] Start: 01-26-2027 Lipid panel Lipid Screening [facility] Start: 09-16-2025 Pneumococcal Vaccine : 65+ (3 of 3 - PPSV23 or PCV20) Pneumococcal Vaccine: 65+ (3 of 3 - PPSV23 or PCV20) [facility] Start: 01-26-2025 Diabetes Screening Diabetes Screenin g [facility] Start: 03-19-2024 Covid-19 Vaccine ( season) Covid-19 Vaccine ( season) [facility] Start: 03-19-2024 Influenza vaccination Influenza Vacc ine (#1) [facility] Start: 07-19-2023 Advance Directive Discussion Advance Directive Discussion [facility] Start: 09-19-2022 Screening for malign ant neoplasm of colon [facility] Start: 11-20-2021 Shingrix Vaccine (2 of 2) Shingrix Vaccine (2 of 2) [facility] Start: 1999 Screening for malign ant neoplasm of colon [facility] Start: 1972 Anxiety Screening Anxiety Screening [facility] Start: 1972 Depression Screening Depression Scre ening [facility] Patient referral [facility] Work Phone: Immunizations Immunization Date Immunization Notes Care Provider Talya barrera 04-22-2024 tetanus toxoid, redu gena diphtheria toxoid, and acellular pertussis vaccine, adsorbed Suresh Castillo MD Work Phone: [facility] 05-16-2020 influenza (HD-IIV4) vaccine, age 65+ yr, high dose, quadrivalent, PF (FLUZONE HIGH-DOSE) [facility] [place] Work Phone: [facility] 05-16-2020 tetanus and diphther ia toxoids, adsorbed, preservative free, for adult use (5 Lf of tetanus toxoid and 2 Lf of diphtheria toxoid) [facility] [place] Work Phone: [facility] 05-16-2020 influenza virus vacc ine, unspecified formulation [facility] [place] Work Phone: [facility] 05-30-2015 influenza, injectabl e, quadrivalent, contains preservative [facility] [place] Work Phone: [facility] 05-30-2014 influenza, injectabl e, quadrivalent, contains preservative [facility] [place] Work Phone: [facility] 05-29-2005 influenza virus vacc ine, unspecified formulation [facility] [place] Work Phone: [facility] 05-29-2005 pneumococcal polysaccharide vaccine, 23 valent [facility] [place] Work Phone: [facility] Payers Date Payer Category Payer Self-pay [id number] 2024 Unknown [id number] 2019 Medicare UHC AARP MEDICAR [facility] PPO [id number] 2019-2019 [address] [address] [place] [address] PPO [id number] Medicaid [id number] Medicare AARP MCR [id number] [id number] UNKNOWN [id number] Medicare MEDICARE PART A B [id number] Unknown [id number] Unknown [id number] Unknown [id number] Unknown [id number] Unknown [id number] Unknown [id number] Social History Date Type Detail Facility Start: 10-23-2021 Tobacco smoking status [facility] Unknown if ever smoked [facility] Work Phone: Start: 1955 Sex Assigned At Male [facility] Start: 09-04-2019 End: 07-07-2024 Tobacco smoking status MEIS Ex-smoker [facility] Start: 1968 End: 07-19-2001 History of tobacco use Current smoker [facility] Start: 1968 End: 07-19-2001 History of tobacco use Cigarette Smoker [facility] Start: 09-04-2019 End: 05-16-2020 Cigarettes smoked current (pack per day) - Reported 2 [facility] Start: 09-04-2019 Tobacco use and exposure Smokeless tobacco non-user [facility] Start: 05-16-2020 Alcoholic beverage intake Current drinker of alcohol (finding) [facility] Start: 09-04-2019 End: 05-16-2020 Alcohol Use Disorder Identification Test - Consumption [AUDIT-C] [facility] How often to you hav e a drink containing alcohol? Monthly or less [facility] How many standard dr inks containing alcohol do you have on a typical day? 1 or 2 [facility] How often do you hav e 6 or more drinks on 1 occasion? Never [facility] Start: 09-20-2019 Alcohol Comment occassionally [facility] Start: 1955 Sex assigned at Not on file [facility] Start: 04-16-2020 End: 05-16-2020 Exposure to SARS-CoV-2 (event) Not sure [facility] History of Present illness Narrative 05-16-2020 Keira FaulknerRt), Ramiro - 05/16/2020 11:40 AM EDT Note Date [...] 2020 11:41 AM documented in this encounter [facility] Evaluation note Note Date & Type Note Facility Evaluation note Diagnosis Onset Date Chest pain acute Family history of coronary artery disease acute Pure hypercholesterolemia ac [place] SOB (shortness of breath) on exertion acute COPD (chronic obstructive pulmonary disease) [facility] [place] Work Phone: Evaluation note Note Date & [...] of forearm joint documented in this encounter [facility] Evaluation note Note Date & Type Note Facility Evaluation note No assessment information availa ble [facility] Work Phone: Reason for referral (narrative) Note Date & Type Note Facility Reason for referral (narrative) No reason for referral information available [facility] Work Phone: Summary Purpose Family History No Family History [...] Records Found Procedure Findings Note HNO ID: [id number] Author: Curtsi Rodriguez Service: ? Author Type: Anesthesiologist Type: Anesthesia Procedure Notes Filed: 04/10/2020 4:19 PM Note Text: ANESTHESIOLOGY PROCEDURE NOTE Airway General Information Procedure Start Time/Medication Administration: 04/10/2020 1:34 PM Patient location during procedure: OR Timeout Performed Pre-procedure: timeout performed Consent Obtained: Yes Patient identity confirmed: arm band and patient Staffing RIPSAW MATCHER: Anny Mccabe Performed by: SWAPNIL Indications and Patient Condition Preoxygenated: yes Patient position: sniffing Indications for airway management: anesthesia anesthesia circuit Method: asleep Airway Accessory: LMA Final Airway Details Final airway type: supraglottic airway Number of attempts at approach: 1 Final Supraglottic Airway: IGEL Size 4 Comments I-Gel 4 inserted SIGNATURE: Anny Mccabe, TAX[employer] PROPRIETOR.RIPSAW MATCHER PATIENT NAME: Dino Lawson DATE: April 10, 2020 TIME: 1:45 PM CSN: [id number] Note HNO ID: [id number] Author: Edel Gurrola DPM Service: Podiatry Author Type: Physician Type: Brief Op Note Filed: 04/10/2020 2:08 PM Note Text: BRIEF OPERATIVE / PROCEDURE NOTE LOG ID: [id number] SURGERY/PROCEDURE DATE: 04/10/2020 INCISION/PROCEDURE START TIME: 1:44 PM INCISION CLOSE/PROCEDURE END TIME: SURGEON(S)/PROCEDURALIST(S) AND EMERGENCY SPILL RESPONSE TECHNICIAN(S): Surgeon(s) and Role: * Blayne Gurrola DPM - Primary * Frank Guevara - Resident - Assisting Registered Nurse Flotation Operator: Gill (Rn) JAMMIE Flores SURGERY/PROCEDURE(S): Skin Biopsy [...] Complaint Amb Documentation FAMILY HX, OCC CP ([facility] WEISS CNP) SHORTNESS OF BREATH SHORTNESS OF BREATH Reason for Visit Chest pain Family history of coronary artery disease Pure hypercholesterolemia SOB (shortness of breath) on exertion COPD (chronic obstructive pulmonary disease) Chief Complaint Admit Date MURMUR December 22, 2024 9:39a m Additional Source Comments (unrecognized sect ion and content) No Status Records FoundNo Status Records FoundNo Status Records FoundNo Status Records Found INFORMATION SOURCE (unrecogn ized section and content) DATE CREATED AUTHOR 04/16/2020 [facility] DATE CREATED AUTHOR AUTHOR'S ORGANIZ ATION 09/06/2021 [facility] DATE CREATED AUTHOR AUTHOR'S ORGANIZ ATION 01/27/2022 [facility] DATE CREATED AUTHOR AUTHOR'S ORGANIZ ATION 12/31/[address] [facility] Goals (unrecognized section and content) Goals may be documented in a n alternate sectionGoals may be documented in an alternate section Source Comments (unrecognize d section and content) In the event this informatio n is protected by the Federal Confidentiality of Alcohol and Drug Abuse Patient Records regulations: The Federal rules restrict any use of the information to criminally investigate or prosecute any alcohol or drug abuse patient.[facility] Reason for Visit (unrecogniz ed section and content) Specialty Diagnoses / Procedures Referred By Contac t Referred To Contact Radiology / [facility] Diagnoses Swelling of joint of left wrist [M25.432] Procedures XR GENERAL 7 Apolinar Jones MD [address] [place] [address] [facility] [address] [place] [address] Referral ID Status Reason Start Date Expiration Date Visits Re quested Visits Authorized [id number] Closed 05/16/2020 07/18/2020 1 1 Care Teams (unrecognized sec tion and content) Pediatric Dietician Relationship Specialty Start Date End Date Apolinar Jones MD [address] [place], [place] [id number] PCP - General Internal Medicine 09/04/19 01/24/24 Ashlyn Rosado MD [address], [place] [id number] Physician Radiation Oncology 05/08/20 Team Status: Active Member Role Status Dates Suresh Castillo MD Primary Care Provider Active Team Status: Inactive Member Role Status Dates Suresh Castillo MD Primary Care Provider Active St art: December 22, 2024 End: December 22, 2024 Suresh Castillo MD Attending Provider Active Start : December 22, 2024 End: December 22, 2024 Suresh Castillo MD Referring Provider Active Start : December 22, 2024 End: December 22, 2024 Team Status: Active Member Role Status Dates Suresh Castillo MD Primary Care Provider Active St art: December 22, 2024 Dr. Carolynn Venegas MD Attending Provider Activ e Start: December 22, 2024 FOR RECORDS PERTAINING TO PATIENTS WHO ARE [...] BE BASED ON THE PRIMARY CLINICAL RECORDS. [employer] [facility]. provides no warranty or guarantee of the accuracy or completeness of information in this document.
--- OUTSIDE RECORDS SUMMARY | 2025-02-21 09:38 | XMS RPT_ITS | CCD ---
Author Organization [facility] Care Team Providers Care Fur Repair Inspector Name Role Phone ANTHONY Weiss-Gloria Concepción Primary Care Provider Loren Barbour Attending Provider Unavailable KIM Weiss Referring Provider [phone] Dr. Arnel Li Attending Provider Dr. Arnel Li Referring Provider Dr. Arnel Li Other Provider Robert MATTHEWS, Apolinar eJan Primary Care Provider Alonzo MATTHEWS, Ashlyn Unavailable Anna MATTHEWS, Suresh Primary Care Provider Anna MATTHEWS, Suresh Attending Provider [phone] Anna MATTHEWS, Suresh Referring Provider Theo MATTHEWS, Dr. Pradhan Attending Provider Anna, Chalon Primary Care Unavailable Anna, Chalon Referring Unavailable Anna, Chalsloane Attending Unavailable Anna, Suresh Attending Unavailable Anna, Chalon Primary Care Unavailable Anna, Chalon Primary Care Unavailable Palmer Whittaker Attending Unavailable Anna, Chalon Primary Care Unavailable Anna, Chalon Referring Unavailable Anna, Ch[place]loane Attending Unavailable Anna, Chalon Primary Care Unavailable Carolynn Venegas Attending Unavailabl e Anna, Chalon Primary Care Unavailable Anna, Chalon Referring Unavailable Jaclyn Pacheco Attending Unavailable Anna, Chalon Primary Care Unavailable Anna, Chalon Referring Unavailable Anna, Chalon Attending Unavailable Allergies Allergy Classification Reported Allergen(s) Allergy Type Date of Onset Reaction(s) Facility (3 sources) Fish Containing Products; Translations: [Fish Containing Products] Propensity to adverse reactions 2 Unknown, [facility] (3 sources) Iodine and Iodide Containing Produc; Translations: [Iodine and Iodide Containing Produc] Propensity to adverse reactions 2 Unknown, [facility] (1 source) Fish Food Allergy 5 [facility] Work Phone: (1 source) Iodine Drug Allergy 9 [facility] Medications Current Medications Medication Drug Class(es) Dates Sig (Normalized) Sig (Original) [id number] 200 actuat albuterol 0.09 mg/actuat metered dose [...] TIMES A DAY November 22, 2023 12:00am July 07, 2024 11:47am amoxicillin 875 mg / clavulanate [...] (valve) prolapse] 01-26-2022 Chronic Heart valve disorders (2 sources) Cardiac murmur, unspecified; Translations: [Cardiac murmur, unspecified] [...] BMI 30-34.9] Onset: 05-16-2020 05-16-2020 Chronic Other screening for suspected conditions (not mental disorders or infectious disease) (2 sources) Encounter for screening for malignant neoplasm of prostate; Translations: [Encounter for screening for malignant neoplasm of prostate] Onset: 03-23-2024 Episodic Other upper respiratory disease (1 source) Bleeding [...] Onset: 09-18-2008 Resolved: 09-04-2019 09-04-2019 Episodic Other skin disorders (1 source) Disorder [...] By: Carolynn Venegas on 12-24-2024 Study report [facility] [address] [place] [address] Echo Complete W/ Contrast 12/22/24 0958 MR#: [id number] Acct: [id number] Name: ARI LAWSON Rep #:[id number] : 1955 69 From: Carolynn yepez MD Attending Dr: Dr. Suresh Castillo MD S tatus: REG CLI Ordering Dr: Suresh aCstillo MD Date: 01/10 Location: [facility] Sex: M C Admitted: Reason [...] Doppler Measurements & Calculations MV E max jesús: 109.9 cm/sec Lat Peak E' Jesús: 14.6 cm/sec Med Peak E' Jesús: 11.7 cm/sec MV A max jesús: 76.6 cm/sec E/E' lat: 7.5 E/E' med: 9.4 MV E/A: 1.4 MV V2 max: 122.5 cm/sec MV P1/2t max jesús: 119.9 cm/sec Ao V2 max: 116.3 cm/sec [...] LV V1 max: 93.1 cm/sec MR max jesús: 481.2 cm/sec PA V2 max: 87.2 cm/sec LV V1 max P.5 mmHg MR max P.2 mmHg PA V2 mean: 59.2 cm/sec LV V1 mean P.9 mmHg MR mean jesús: 378.7 cm/sec LV V1 mean: 65.0 cm/sec MR mean P.8 mmHg LV V1 VTI: 18.1 cm MR VTI: 129.1 cm TR max jesús: 226.6 cm/sec TR max P.5 mmHg ECHO/Echo Complete W/ Contrast Interpretation Summary The estimated ejection fraction is 60 %. No evidence for diastolic dysfunction. Mild (1+) mitral valve insufficiency. The left atrium is mildly enlarged. ___ Ordering Physician: Suresh Castillo Referring Physician: Suresh Castillo Performed By: Joyce Barnes, RDESTELA, RVT 12/24/241654 Date _ Carolynn Venegas MD CC: Dr. Suresh Castillo MD ~ Date Dictated: 12/22/24957 Date Transcribed: 12/24/241654 Sequins Slinger: Signed [facility] Work Phone: Echo Complete W/ Contraston 12-22-2024 Echo Complete W/ Contrast [facility] [address] [place] [address] Echo Complete W/ Contrast 12/22/24957 MR#: [id number] Acct: [id number] Name: ARI LAWSON Rep #: [id number] : 1955 69 From: Carolynn Venegas MD Attending Dr: Dr. Suresh Castillo MD Status: REG C PHILIP Ordering Dr: Suresh Castillo MD Date: 12/22/24 Location: [facility] Sex: M C Admitted: Reason [...] sec Doppler Measurements Calculations MV E max jesús: 109.9 cm/sec Lat Peak E' Jesús: 14.6 cm/sec Med Peak E' Jesús: 11.7 cm/sec MV A max jesús: 76.6 cm/sec E/E' lat: 7.5 E/E' med: 9.4 MV E/A: 1.4 MV V2 max: 122.5 cm/sec MV P1/2t max jesús: 119.9 cm/sec Ao V2 max: 116.3 cm/sec [...] LV V1 max: 93.1 cm/sec MR max jesús: 481.2 cm/sec PA V2 max: 87.2 cm/sec LV V1 max P.5 mmHg MR max P.2 mmHg PA V2 mean: 59.2 cm/sec LV V1 mean P.9 mmHg MR mean jesús: 378.7 cm/sec LV V1 mean: 65.0 cm/sec MR mean P.8 mmHg LV V1 VTI: 18.1 cm MR VTI: 129.1 cm TR max jesús: 226.6 cm/sec TR max P.5 mmHg ECHO/Echo Complete W/ Contrast Interpretation Summary The estimated ejection fraction is 60 %. No evidence for diastolic dysfunction. Mild (1+) mitral valve insufficiency. The left atrium is mildly enlarged. ___ Ordering Physician: Suresh Castillo Referring Physician: Suresh Castillo Performed By: Joyce Barnes, KYARA, RVT 12/24/24 1655 Date Carolynn Venegas MD CC: Dr. Suresh Castillo MD Date Dictated: 12/22/24 0958 Date Gomez (more content not included)... Normal [facility] Emergency Department Summary on 07-07-2024 Emergency Department Summary [facility] Medical Records Department [address] [place] [address] Emergency Department Summary 07/07/24 MR#: [id number] Acct: [id number] Name: ARI LAWSON Rep #: [id number] : 1955 69 From: Palmer Whittaker DO [...] follow-up with them on his blood pressure. [facility] Medical History Acute bronchitis, unspecified Arthritis [...] following commands knew that he was at [facility] years 2023 Skin: Warm, dry, intact [...] blood thinnin (more content not included)... Normal [facility] Office Visit Reporton 2023 Office Visit Report [facility] [address] [place] [address] OFFICE VISIT Date of Service: 04/22/24 MR#: [id number] Acct: [id number] Patient: ARI LAWSON Rep #: [id number] : 1955 Provider: KIM Pacheco Age/Sex: 69/M Location: [facility] Status: Signed Intake Vital Signs 06/28/23 12:27 Height 5 ft 7 in Intake Visit Reasons: TETANUS SHOT Chief Complaint: Tdap Informaticist Required: No Is patient in pain?: No [...] IM Right Deltoid 0.5 mL CX4HL 05/27/26 [id number] TyrosKLINE VIS Given Date VIS Provided VIS Publication Date 04/22/24 Single Vaccine 21 Eligibility Eligibility Date Funding Source Not Applicable Assessment and Plan Assessment and Plan Orders: Orders Tdap Immunization Today Z23 - Encounter for immunization Clinical Quality Measures Falls Risk Screening/Assistive Devices Have you fallen in the past year?: No 04/22/24 1143 Date Jaclyn Danielsonignbryce Signature: Date (if applicable) CC: Normal [facility] Low Dose CT Lung Screeningon 04-01-[address] Lung Screening [facility] Imaging Services [address] [place] [address] Lung Screening MR#: [id number] Acct: [id number] Name: ARI LAWSON Rep #: [id number] : 1955 M 68 From: Ferdinand Reed MD PCP: Dr. Suresh Castillo MD Status: [facility] Study: Low Dose CT Lung Screening Date of Exam: 04/01 Exam# [id number] Ordering Dr: Suresh Castillo MD [id number] STUDY: LOW DOSE CT LUNG CANCER SCREENING [...] 10:10 EDT Reading Location ID and State: [address] [place] [address] , Service support , CC: Dr. Suresh Castillo MD Sequins Slinger: Signed Normal [facility] CBC W/Diff, Automatedon 08-0 Absolute Lymph 1.71 X10 3/uL Normal 0.83-4.51 [facility] Comment on above: Order Comment: Order Date: 02/18/24 Order Info: 0184-1 - CBCD Performed By: #### L 500.4050, L501.9910, L100.0100, L500.4100 #### [facility] [address] [place], [address] Absolute Neut 5.2 X10 3/uL Normal 2.0-7.7 [facility] Comment on above: Order Comment: Order Date: 02/18/24 Order Info: 0184-1 - CBCD Performed By: #### L 500.4050, L501.9910, L100.0100, L500.4100 #### [facility] [address] [place], [address] Basophils/100 WBC (Bld) 0.6 % Normal 0-1 [facility] Comment on above: Order Comment: Order Date: 02/18/24 Order Info: 0184-1 - CBCD Performed By: #### L 500.4050, L501.9910, L100.0100, L500.4100 #### [facility] [address] [place], [address] Eosinophils/100 WBC (Bld) 2.3 % Normal 0-5 [facility] Comment on above: Order Comment: Order Date: 02/18/24 Order Info: 0184-1 - CBCD Performed By: #### L 500.4050, L501.9910, L100.0100, L500.4100 #### [facility] [address] [place], [address] Erythrocyte distribution width (RBC) [Ratio] 13.8 % Normal 11.6-14.6 [facility] Comment on above: Order Comment: Order Date: 02/18/24 Order Info: 018- - CBCD Performed By: #### L 500.4050, L501.9910, L100.0100, L500.4100 #### [facility] [address] [place], [address] Hematocrit (Bld) [Volume fraction] 48.3 % Normal 40-54 [facility] Comment on above: Order Comment: Order Date: 02/18/24 Order Info: 018- - CBCD Performed By: #### L 500.4050, L501.9910, L100.0100, L500.4100 #### [facility] [address] [place], [address] Hemoglobin (Bld) [Mass/Vol] 15.3 g/dL Normal 13.0-16.5 [facility] Comment on above: Order Comment: Order Date: 02/18/24 Order Info: 0184-1 - CBCD Performed By: #### L 500.4050, L501.9910, L100.0100, L500.4100 #### [facility] [address] [place], [address] IG% 0.600 Normal 0.0-0.9 [facility] Comment on above: Order Comment: Order Date: 02/18/24 Order Info: 0184-1 - CBCD Result Comment: IG% - Immature Granulocytes (promyelocytes, myelocytes and metamyelocytes) > 1% indicates that a LEFT SHIFT is Present. Performed By: #### L 500.4050, L501.9910, L100.0100, L500.4100 #### [facility] [address] [place], [address] Lymphocytes/100 WBC (Bld) 22.0 % Normal 19-41 [facility] Comment on above: Order Comment: Order Date: 02/18/24 Order Info: 0184-1 - CBCD Performed By: #### L 500.4050, L501.9910, L100.0100, L500.4100 #### [facility] [address] [place], [address] MCH (RBC) [Entitic mass] 29.3 pg Normal 27.0-32.0 [facility] Comment on above: Order Comment: Order Date: 02/18/24 Order Info: 0184-1 - CBCD Performed By: #### L 500.4050, L501.9910, L100.0100, L500.4100 #### [facility] [address] [place], [address] MCHC (RBC) [Mass/Vol] 31.7 g/dL Low 32-36 [facility] Comment on above: Order Comment: Order Date: 02/18/24 Order Info: 0184-1 - CBCD Performed By: #### L 500.4050, L501.9910, L100.0100, L500.4100 #### [facility] [address] [place], [address] MCV (RBC) [Entitic vol] 92.5 fL Normal 80-94 [facility] Comment on above: Order Comment: Order Date: 02/18/24 Order Info: 0184-1 - CBCD Performed By: #### L 500.4050, L501.9910, L100.0100, L500.4100 #### [facility] [address] [place], [address] Monocytes/100 WBC (Bld) 8.2 % Normal 0-10 [facility] Comment on above: Order Comment: Order Date: 02/18/24 Order Info: 0184-1 - CBCD Performed By: #### L 500.4050, L501.9910, L100.0100, L500.4100 #### [facility] [address] [place], [address] Neutrophils/100 WBC (Bld) 66.3 % Normal 47-70 [facility] Comment on above: Order Comment: Order Date: 02/18/24 Order Info: 0184-1 - CBCD Performed By: #### L 500.4050, L501.9910, L100.0100, L500.4100 #### [facility] [address] [place], [address] Nucleated RBC (Bld) [#/Vol] 0 10*3/uL Normal 0-5 [facility] Comment on above: Order Comment: Order Date: 02/18/24 Order Info: 0184-1 - CBCD Performed By: #### L 500.4050, L501.9910, L100.0100, L500.4100 #### [facility] [address] [place], [address] Platelet mean volume (Bld) [Entitic vol] 10.2 fL Normal 6.2-12.0 [facility] Comment on above: Order Comment: Order Date: 02/18/24 Order Info: 0184-1 - CBCD Performed By: #### L 500.4050, L501.9910, L100.0100, L500.4100 #### [facility] [address] [place], [address] Platelets (Bld) [#/Vol] 314 10*3/uL Normal 150-450 [facility] Comment on above: Order Comment: Order Date: 02/18/24 Order Info: 0184-1 - CBCD Performed By: #### L 500.4050, L501.9910, L100.0100, L500.4100 #### [facility] [address] [place], [address] RBC (Bld) [#/Vol] 5.22 10*6/uL Normal 4.6-6.2 [facility] Comment on above: Order Comment: Order Date: 02/18/24 Order Info: 0184-1 - CBCD Performed By: #### L 500.4050, L501.9910, L100.0100, L500.4100 #### [facility] [address] [place], [address] RDW SD 46.5 fl High 35.1-43.9 [facility] Comment on above: Order Comment: Order Date: 02/18/24 Order Info: 0184-1 - CBCD Performed By: #### L 500.4050, L501.9910, L100.0100, L500.4100 #### [facility] [address] [place], [address] WBC (Bld) [#/Vol] 7.8 10*3/uL Normal 4.4-11.0 [facility] Comment on above: Order Comment: Order Date: 02/18/24 Order Info: 0184-1 - CBCD Performed By: #### L 500.4050, L501.9910, L100.0100, L500.4100 #### [facility] [address] [place], [address] Comprehensive Metabolic Prof ilon 02-21-2024 Albumin [Mass/Vol] 3.7 g/dL Normal 3.2-5.0 [facility] Comment on above: Order Comment: Order Date: 02/18/24 Order Info: 0786-1 - CMP Order Info: [id number] - LIPID Order Info: 2857-1 - PSA Performed By: #### L 500.4050, L501.9910, L100.0100, L500.4100 #### [facility] [address] [place], [address] Albumin/Globulin [Mass ratio] 1.0 {ratio} Normal 0.9-2.4 [facility] Comment on above: Order Comment: Order Date: 02/18/24 Order Info: 0786-1 - CMP Order Info: [id number] - LIPID Order Info: [id number] - PSA Performed By: #### L 500.4050, L501.9910, L100.0100, L500.4100 #### [facility] [address] [place], [address] ALK P 103 U/L Normal 45-117 [facility] Comment on above: Order Comment: Order Date: 02/18/24 Order Info: 0786- - CMP Order Info: [id number] - LIPID Order Info: [id number] - PSA Performed By: #### L 500.4050, L501.9910, L100.0100, L500.4100 #### [facility] [address] [place], [address] ALT [Catalytic activity/Vol] 28 U/L Normal 16-61 [facility] Comment on above: Order Comment: Order Date: 02/18/24 Order Info: 0786-1 - CMP Order Info: [id number] - LIPID Order Info: 2857-1 - PSA Performed By: #### L 500.4050, L501.9910, L100.0100, L500.4100 #### [facility] [address] [place], [address] AST [Catalytic activity/Vol] 23 U/L Normal 15-37 [facility] Comment on above: Order Comment: Order Date: 02/18/24 Order Info: 0786-1 - CMP Order Info: [id number] - LIPID Order Info: [id number] - PSA Performed By: #### L 500.4050, L501.9910, L100.0100, L500.4100 #### [facility] [address] [place], [address] Bilirubin [Mass/Vol] 0.50 mg/dL Normal 0.20-1.00 [facility] Comment on above: Order Comment: Order Date: 02/18/24 Order Info: 0786- - CMP Order Info: [id number] - LIPID Order Info: [id number] - PSA Result Comment: For patients on eltrombopag therapy, use of Dimension [place] TBIL is not recommended. Performed By: #### L 500.4050, L501.9910, L100.0100, L500.4100 #### [facility] [address] [place], [address] BUN/CRE 22.4 RATIO High 10-20 [facility] Comment on above: Order Comment: Order Date: 02/18/24 Order Info: 0786 - CMP Order Info: [id number] - LIPID Order Info: [id number] - PSA Performed By: #### L 500.4050, L501.9910, L100.0100, L500.4100 #### [facility] [address] [place], [address] CA,Total 9.1 mg/dL Normal 8.5-10.1 [facility] Comment on above: Order Comment: Order Date: 02/18/24 Order Info: 0786- - CMP Order Info: [id number] - LIPID Order Info: [id number] - PSA Performed By: #### L 500.4050, L501.9910, L100.0100, L500.4100 #### [facility] [address] [place], [address] Chloride [Moles/Vol] 110 mmol/L High 98-107 [facility] Comment on above: Order Comment: Order Date: 02/18/24 Order Info: 785-07 - CMP Order Info: [id number] - LIPID Order Info: [id number] - PSA Performed By: #### L 500.4050, L501.9910, L100.0100, L500.4100 #### [facility] [address] [place], [address] CO2 [Moles/Vol] 25.0 mmol/L Normal 21.0-32.0 [facility] Comment on above: Order Comment: Order Date: 02/18/24 Order Info: 785-07 - CMP Order Info: - LIPID Order Info: [id number] - PSA Performed By: #### L 500.4050, L501.9910, L100.0100, L500.4100 #### [facility] [address] [place], [address] Creatinine [Mass/Vol] 0.76 mg/dL Normal 0.70-1.30 [facility] Comment on above: Order Comment: Order Date: 02/18/24 Order Info: 785-07 - CMP Order Info: - LIPID Order Info: [id number] - PSA Result Comment: The validity of the calculated GFR GFRAA in patients over 70 years has not been determined. Clinical correlation is essential. Performed By: #### L 500.4050, L501.9910, L100.0100, L500.4100 #### [facility] [address] [place], [address] EST GFR - AA 131 mL/min Normal >60 [facility] Comment on above: Order Comment: Order Date: 02/18/24 Order Info: [id number] - CMP Order Info: - LIPID Order Info: [id number] - PSA Result Comment: Afri can [place] GFR Calc Performed By: #### L 500.4050, L501.9910, L100.0100, L500.4100 #### [facility] [address] [place], [place], [address] GAP 8 Normal 5-15 [facility] Comment on above: Order Comment: Order Date: 02/18/24 Order Info: 785- - CMP Order Info: - LIPID Order Info: [id number] - PSA Performed By: #### L 500.4050, L501.9910, L100.0100, L500.4100 #### [facility] [address] [place], [address] GFR/1.73 sq M.predicted among non-blacks MDRD (S/P/Bld) [Vol rate/Area] 108 mL/min/{1.73_m2} Normal >60 [facility] Comment on above: Order Comment: Order Date: 02/18/24 Order Info: 785-07 - CMP Order Info: - LIPID Order Info: [id number] - PSA Result Comment: Non- GFR Calc Performed By: #### L 500.4050, L501.9910, L100.0100, L500.4100 #### [facility] [address] [place], [address] Globulin (S) [Mass/Vol] 3.6 g/dL Normal 2.2-4.2 [facility] Comment on above: Order Comment: Order Date: 02/18/24 Order Info: 785-07 - CMP Order Info: - LIPID Order Info: [id number] - PSA Performed By: #### L 500.4050, L501.9910, L100.0100, L500.4100 #### [facility] [address] [place], [address] Glucose [Mass/Vol] 113 mg/dL High 74-106 [facility] Comment on above: Order Comment: Order Date: 02/18/24 Order Info: 07 - CMP Order Info: [id number] - LIPID Order Info: [id number] - PSA Result Comment: Fast ing Glucose result from 100 to 125 mg/dL suggests IMPAIRED HOMEOSTASIS per A.D.A. criteria. Performed By: #### L 500.4050, L501.9910, L100.0100, L500.4100 #### [facility] [address] [place], [address] Potassium [Moles/Vol] 4.3 mmol/L Normal 3.5-5.1 [facility] Comment on above: Order Comment: Order Date: 02/18/24 Order Info: 86- - CMP Order Info: 13948-0 - LIPID Order Info: 285-1 - PSA Performed By: #### L 500.4050, L501.9910, L100.0100, L500.4100 #### [facility] [address] [place], [address] Sodium [Moles/Vol] 143 mmol/L Normal 136-145 [facility] Comment on above: Order Comment: Order Date: 02/18/24 Order Info: 785-07 - CMP Order Info: [id number] - LIPID Order Info: [id number] - PSA Performed By: #### L 500.4050, L501.9910, L100.0100, L500.4100 #### [facility] [address] [place], [address] T PROT 7.3 g/dL Normal 6.4-8.2 [facility] Comment on above: Order Comment: Order Date: 02/18/24 Order Info: 0786 - CMP Order Info: [id number] - LIPID Order Info: [id number] - PSA Performed By: #### L 500.4050, L501.9910, L100.0100, L500.4100 #### [facility] [address] [place], [address] Urea nitrogen [Mass/Vol] 17 mg/dL Normal 7-18 [facility] Comment on above: Order Comment: Order Date: 02/18/24 Order Info: 0786- - CMP Order Info: [id number] - LIPID Order Info: [id number] - PSA Performed By: #### L 500.4050, L501.9910, L100.0100, L500.4100 #### [facility] [address] [place], [address] Lipid Profileon 02-21-2024 Cholesterol [Mass/Vol] 133 mg/dL Normal 200 [facility] Comment on above: Order Comment: Order Date: 02/18/24 Order Info: 0786- - CMP Order Info: [id number] - LIPID Order Info: [id number] - PSA Result Comment: <200 mg/dL Desirable 200-240 mg/dL Borderline >240 mg/dL High Risk Performed By: #### L 500.4050, L501.9910, L100.0100, L500.4100 #### [facility] [address] [place], [address] Cholesterol in HDL [Mass/Vol] 42 mg/dL Normal [facility] Comment on above: Order Comment: Order Date: 02/18/24 Order Info: 785-07 - CMP Order Info: [id number] - LIPID Order Info: [id number] - PSA Result Comment: The drugs N-Acetylcysteine and Metamizole may falsely depress this assay. Reference Range HDL <40 mg/dL Low HDL Cholesterol HDL >or= 60 mg/dL High HDL Cholesterol Performed By: #### L 500.4050, L501.9910, L100.0100, L500.4100 #### [facility] [address] [place], [address] Cholesterol in LDL [Mass/Vol] 66 mg/dL Normal 0-130 [facility] Comment on above: Order Comment: Order Date: 02/18/24 Order Info: 0786 - CMP Order Info: [id number] - LIPID Order Info: [id number] - PSA Performed By: #### L 500.4050, L501.9910, L100.0100, L500.4100 #### [facility] [address] [place], [address] Cholesterol in VLDL [Mass/Vol] 25 mg/dL Normal 5-40 [facility] Comment on above: Order Comment: Order Date: 02/18/24 Order Info: 0786- - CMP Order Info: [id number] - LIPID Order Info: [id number] - PSA Performed By: #### L 500.4050, L501.9910, L100.0100, L500.4100 #### [facility] [address] [place], [address] Triglyceride [Mass/Vol] 127 mg/dL Normal [facility] Comment on above: Order Comment: Order Date: 02/18/24 Order Info: 07 - CMP Order Info: [id number] - LIPID Order Info: [id number] - PSA Result Comment: The drugs N-Acetylcysteine and Metamizole may falsely depress this assay. Serum Triglycerides Reference Interval Normal <150 mg/dL Borderline high 150 - 199 mg/dL High 200 - 499 mg/dL Very High > or = 500 mg/dL Performed By: #### L 500.4050, L501.9910, L100.0100, L500.4100 #### [facility] [address] [place], [address] PSA,Total - Annual Screenon 02-21-2024 PSA,TOT SCREEN 0.48 ng/mL Normal 0.00-4.00 [facility] Comment on above: Order Comment: Order Date: 02/18/24 Order Info: 0786- - CMP Order Info: [id number] - LIPID Order Info: [id number] - PSA Result Comment: This test was performed using the TPSA assay method for the [employer] chemistry system. Values obtained with different assay methods cannot be used interchangably. When changing PSA assays in the course of monitoring a patient, additional sequential testing should be carried out to confirm baseline values. Performed By: #### L 500.4050, L501.9910, L100.0100, L500.4100 #### [facility] [address] [place], [address] CBC W Auto Differential pane l (Bld)on 01-26-2022 Basophils (Bld) [#/Vol] 0.05 10*3/uL Normal <0.11 [facility] Comment on above: Order Comment: Speci men Type: BLOOD SPECIMEN Ordering Facility: [facility] Address: [address] [place] [address], [place] [address] Performed By: #### 5 7021-8 #### [facility] CLIA [id number] [address] [place] [address] [place] Basophils/100 WBC (Bld) 0.7 % Normal [facility] Comment on above: Order Comment: Speci men Type: BLOOD SPECIMEN Ordering Facility: [facility] Address: [address] [place] [address] Performed By: #### 5 7021-8 #### [facility] CLIA [id number] [address] [place] [address] [place] Differential cell count method Nom (Bld) Auto Normal [facility] Comment on above: Order Comment: Speci men Type: BLOOD SPECIMEN Ordering Facility: [facility] Address: [address] [place] [address] Performed By: #### 5 7021-8 #### [facility] CLIA [id number] [address] [place] [address] [place] Eosinophils (Bld) [#/Vol] 0.19 10*3/uL Normal <0.46 [facility] Comment on above: Order Comment: Speci men Type: BLOOD SPECIMEN Ordering Facility: [facility] Address: [address] [place] [address] Performed By: #### 5 7021-8 #### [facility] CLIA [id number] [address] [place] [address] [place] Eosinophils/100 WBC (Bld) 2.6 % Normal [facility] Comment on above: Order Comment: Speci men Type: BLOOD SPECIMEN Ordering Facility: [facility] Address: [address] [place] [address] Performed By: #### 5 7021-8 #### [facility] CLIA [id number] [address] [place] [address] [place] Erythrocyte distribution width (RBC) [Ratio] 14.0 % Normal 11.5-15.0 [facility] Comment on above: Order Comment: Speci men Type: BLOOD SPECIMEN Ordering Facility: [facility] Address: [address] [place] [address] Performed By: #### 5 7021-8 #### [facility] CLIA [id number] [address] [place] [address] [place] Hematocrit (Bld) [Volume fraction] 48.7 % Normal 39.0-51.0 [facility] Comment on above: Order Comment: Speci men Type: BLOOD SPECIMEN Ordering Facility: [facility] Address: [address] [place] [address] Performed By: #### 5 7021-8 #### [facility] CLIA [id number] [address] [place] [address] [place] Hemoglobin (Bld) [Mass/Vol] 14.9 g/dL Normal 13.0-17.0 [facility] Comment on above: Order Comment: Speci men Type: BLOOD SPECIMEN Ordering Facility: [facility] Address: [address] [place] [address] Performed By: #### 5 7021-8 #### [facility] CLIA [id number] [address] [place] [address] [place] IMMATURE GRAN % 0.4 % Normal [facility] Comment on above: Order Comment: Speci men Type: BLOOD SPECIMEN Ordering Facility: [facility] Address: [address] [place] [address] Performed By: #### 5 7021-8 #### [facility] CLIA [id number] [address] [place] [address] [place] IMMATURE GRAN ABS 0.03 k/uL Normal <0.10 [facility] Comment on above: Order Comment: Speci men Type: BLOOD SPECIMEN Ordering Facility: [facility] Address: [address] [place] [address], [place] [address] Performed By: #### 5 7021-8 #### [facility] CLIA [id number] [address] [place] [address] [place] Lymphocytes (Bld) [#/Vol] 1.80 10*3/uL Normal 1.00-4.00 [facility] Comment on above: Order Comment: Speci men Type: BLOOD SPECIMEN Ordering Facility: [facility] Address: [address] [place] [address] Performed By: #### 5 7021-8 #### [facility] CLIA [id number] [address] [place] [address] [place] Lymphocytes/100 WBC (Bld) 24.3 % Normal [facility] Comment on above: Order Comment: Speci men Type: BLOOD SPECIMEN Ordering Facility: [facility] Address: [address] [place] [address], [place] [address] Performed By: #### 5 7021-8 #### [facility] CLIA [id number] [address] [place] [address] [place] MCH (RBC) [Entitic mass] 28.7 pg Normal 26.0-34.0 [facility] Comment on above: Order Comment: Speci men Type: BLOOD SPECIMEN Ordering Facility: [facility] Address: [address] [place] [address] Performed By: #### 5 7021-8 #### [facility] CLIA [id number] [address] [place] [address] [place] MCHC (RBC) [Mass/Vol] 30.6 g/dL Normal 30.5-36.0 [facility] Comment on above: Order Comment: Speci men Type: BLOOD SPECIMEN Ordering Facility: [facility] Address: [address] [place] [address] Performed By: #### 5 7021-8 #### [facility] CLIA [id number] [address] [place] [address] [place] MCV (RBC) [Entitic vol] 93.7 fL Normal 80.0-100.0 [facility] Comment on above: Order Comment: Speci men Type: BLOOD SPECIMEN Ordering Facility: [facility] Address: [address] [place] [address] Performed By: #### 5 7021-8 #### [facility] CLIA [id number] [address] [place] [address] [place] Monocytes (Bld) [#/Vol] 0.62 10*3/uL Normal <0.87 [facility] Comment on above: Order Comment: Speci men Type: BLOOD SPECIMEN Ordering Facility: [facility] Address: [address] [place] [address] Performed By: #### 5 7021-8 #### [facility] CLIA [id number] [address] [place] [address] [place] Monocytes/100 WBC (Bld) 8.4 % Normal [facility] Comment on above: Order Comment: Speci men Type: BLOOD SPECIMEN Ordering Facility: [facility] Address: [address] [place] [address] Performed By: #### 5 7021-8 #### [facility] CLIA [id number] [address] [place] [address] [place] Neutrophils (Bld) [#/Vol] 4.73 10*3/uL Normal 1.45-7.50 [facility] Comment on above: Order Comment: Speci men Type: BLOOD SPECIMEN Ordering Facility: [facility] Address: [address] [place] [address] Performed By: #### 5 7021-8 #### [facility] CLIA [id number] [address] [place] [address] [place] Neutrophils/100 WBC (Bld) 63.6 % Normal [facility] Comment on above: Order Comment: Speci men Type: BLOOD SPECIMEN Ordering Facility: [facility] Address: [address] [place] [address] Performed By: #### 5 7021-8 #### [facility] CLIA [id number] [address] [place] [address] [place] Nucleated RBC (Bld) [#/Vol] 10*3/uL Normal <0.01 [facility] Comment on above: Order Comment: Speci men Type: BLOOD SPECIMEN Ordering Facility: [facility] Address: [address] [place] [address] Performed By: #### 5 7021-8 #### [facility] CLIA [id number] [address] [place] [address] [place] Nucleated RBC/100 WBC (Bld) [Ratio] 0.0 /100 WBC Normal [facility] Comment on above: Order Comment: Speci men Type: BLOOD SPECIMEN Ordering Facility: [facility] Address: [address] [place] [address] Performed By: #### 5 7021-8 #### [facility] CLIA [id number] [address] [place] [address] [place] Platelet mean volume (Bld) [Entitic vol] 10.1 fL Normal 9.0-12.7 [facility] Comment on above: Order Comment: Speci men Type: BLOOD SPECIMEN Ordering Facility: [facility] Address: [address] [place] [address] Performed By: #### 5 7021-8 #### [facility] CLIA [id number] [address] [place] [address] [place] Platelets (Bld) [#/Vol] 359 10*3/uL Normal 150-400 [facility] Comment on above: Order Comment: Speci men Type: BLOOD SPECIMEN Ordering Facility: [facility] Address: [address] [place] [address] Performed By: #### 5 7021-8 #### [facility] CLIA [id number] [address] [place] [address] [place] RBC (Bld) [#/Vol] 5.20 10*6/uL Normal 4.20-6.00 [facility] Comment on above: Order Comment: Speci men Type: BLOOD SPECIMEN Ordering Facility: [facility] Address: [address] [place] [address] Performed By: #### 5 7021-8 #### [facility] CLIA [id number] [address] [place] [address] [place] WBC (Bld) [#/Vol] 7.42 10*3/uL Normal 3.70-11.00 [facility] Comment on above: Order Comment: Speci men Type: BLOOD SPECIMEN Ordering Facility: [facility] Address: [address] [place] [address], [place] [address] Performed By: #### 5 7021-8 #### [facility] CLIA [id number] [address] [place] [address] [place] Comprehensive metabolic 2000 panelon 01-26-2022 Albumin [Mass/Vol] 4.3 g/dL Normal 3.9-4.9 [facility] Comment on above: Order Comment: Speci men Type: BLOOD SPECIMEN Ordering Facility: [facility] Address: [address] [place] [address] Performed By: #### 2 4323-8, 93788-0 #### [facility] CLIA [id number] [address] [place] [address] [place] ALP [Catalytic activity/Vol] 104 U/L Normal 38-113 [facility] Comment on above: Order Comment: Speci men Type: BLOOD SPECIMEN Ordering Facility: [facility] Address: [address], [place] [address] Performed By: #### 2 4323-8, 29396-3 #### [facility] CLIA [id number] [address] [place] [address] [place] ALT [Catalytic activity/Vol] 22 U/L Normal 10-54 [facility] Comment on above: Order Comment: Speci men Type: BLOOD SPECIMEN Ordering Facility: [facility] Address: [address] [place] [address] [address], [place] [address] Performed By: #### 2 4323-8, 39833-0 #### [facility] CLIA [id number] [address] [place] [address] [place] Anion gap [Moles/Vol] 10 mmol/L Normal 9-18 [facility] Comment on above: Order Comment: Speci men Type: BLOOD SPECIMEN Ordering Facility: [facility] Address: [address] [place] [address], [place] [address] Performed By: #### 2 4323-8, 48600-1 #### [facility] CLIA [id number] [address] [place] [address] [place] AST [Catalytic activity/Vol] 25 U/L Normal 14-40 [facility] Comment on above: Order Comment: Speci men Type: BLOOD SPECIMEN Ordering Facility: [facility] Address: [address] [place] [address], [place] [address] Performed By: #### 2 4323-8, 29162-9 #### [facility] CLIA [id number] [address] [place] [address] [place] Bilirubin [Mass/Vol] 0.4 mg/dL Normal 0.2-1.3 [facility] Comment on above: Order Comment: Speci men Type: BLOOD SPECIMEN Ordering Facility: [facility] Address: [address] [place] [address], [place] [address] Performed By: #### 2 4323-8, 06636-6 #### [facility] CLIA [id number] [address] [place] [id number] [place] Calcium [Mass/Vol] 9.6 mg/dL Normal 8.5-10.2 [facility] Comment on above: Order Comment: Speci men Type: BLOOD SPECIMEN Ordering Facility: [facility] Address: [address] [place] [address], [place] [address] Performed By: #### 2 4323-8, 24350-8 #### [facility] CLIA [id number] [address] [place] [address] [place] Chloride [Moles/Vol] 105 mmol/L Normal 97-105 [facility] Comment on above: Order Comment: Speci men Type: BLOOD SPECIMEN Ordering Facility: [facility] Address: [address] [place] [address], [place] [address] Performed By: #### 2 4323-8, 32734-3 #### [facility] CLIA [id number] [address] [place] [address] [place] CO2 [Moles/Vol] 26 mmol/L Normal 22-30 [facility] Comment on above: Order Comment: Speci men Type: BLOOD SPECIMEN Ordering Facility: [facility] Address: [address] [place] [address], [place] [address] Performed By: #### 2 4323-8, 42695-9 #### [facility] CLIA [id number] [address] [place] [id number] [place] Creatinine [Mass/Vol] 0.80 mg/dL Normal 0.73-1.22 [facility] Comment on above: Order Comment: Speci men Type: BLOOD SPECIMEN Ordering Facility: [facility] Address: [address] [place] [address], [place] [address] Performed By: #### 2 4323-8, 00502-1 #### [facility] CLIA [id number] [address] [place] [address] [place] ESTIMATED GLOMERULAR FILTRATION RATE 97 mL/min/1.73m??? Normal >=60 [facility] Comment on above: Order Comment: Fito velez Type: BLOOD SPECIMEN Ordering Facility: [facility] Address: [address] [place] [address], [place] [address] Result Comment: Day mated Glomerular Filtration Rate [...] actual GFR. Performed By: #### 2 4323-8, 71360-3 #### [facility] CLIA [id number] [address] [place] [address] [place] Glucose [Mass/Vol] 89 mg/dL Normal 74-99 [facility] Comment on above: Order Comment: Fito velez Type: BLOOD SPECIMEN Ordering Facility: [facility] Address: [address] [place] [address], [place] [address] Result Comment: The [place] [employer] (ADA) provides guidance for cutoff [...] Standards of Medical Care in Diabetes 2016, [place] [employer]. Diabetes Care. 2016.39(Suppl 1). Performed By: #### 2 4323-8, 59636-5 #### [facility] CLIA [id number] [address] [place] [id number] [place] Potassium [Moles/Vol] 3.9 mmol/L Normal 3.7-5.1 [facility] Comment on above: Order Comment: Speci men Type: BLOOD SPECIMEN Ordering Facility: [facility] Address: [address] [facility], [place] [address] Performed By: #### 2 4323-8, 79427-6 #### [facility] CLIA [id number] [address] [place] [address] [place] Protein [Mass/Vol] 7.0 g/dL Normal 6.3-8.0 [facility] Comment on above: Order Comment: Speci men Type: BLOOD SPECIMEN Ordering Facility: [facility] Address: [address] [place] [address], [place] [address] Performed By: #### 2 4323-8, 40128-1 #### [facility] CLIA [id number] [address] [place] [address] [place] Sodium [Moles/Vol] 141 mmol/L Normal 136-144 [facility] Comment on above: Order Comment: Speci men Type: BLOOD SPECIMEN Ordering Facility: [facility] Address: [address] [place] [address], [place] [address] Performed By: #### 2 4323-8, 01206-6 #### [facility] CLIA [id number] [address] [place] [address] [place] Urea nitrogen [Mass/Vol] 19 mg/dL Normal 9-24 [facility] Comment on above: Order Comment: Speci men Type: BLOOD SPECIMEN Ordering Facility: [facility] Address: [address] [place] [address], [place] [address] Performed By: #### 2 4323-8, 05860-0 #### [facility] CLIA [id number] [address] [place] [address] [place] Lipid 1996 panelon 2 Cholesterol [Mass/Vol] 134 mg/dL Normal <200 [facility] Comment on above: Order Comment: Speci men Type: BLOOD SPECIMEN Ordering Facility: [facility] Address: [address] [place] [address], [place] [address] Result Comment: <200 mg/dL, Desirable 200-239 mg/dL, Borderline high >239 mg/dL, High Performed By: #### 2 4323-8, 11068-8 #### [facility] CLIA [id number] [address] [address] [place] Cholesterol in HDL [Mass/Vol] 39 mg/dL Low >39 [facility] Comment on above: Order Comment: Fito men Type: BLOOD SPECIMEN Ordering Facility: [facility] Address: [address] [place] [address], [place] [address] Result Comment: 40-5 9 mg/dL, Acceptable >59 mg/dL, High: Negative risk factor for coronary heart disease <40 mg/dL, Low: Positive risk factor for coronary heart disease Performed By: #### 2 4323-8, 38554-7 #### [facility] CLIA [id number] [address] [place] [address] [place] Cholesterol in LDL [Mass/Vol] 80 mg/dL Normal <100 [facility] Comment on above: Order Comment: Fito velez Type: BLOOD SPECIMEN Ordering Facility: [facility] Address: [address] [place] [address], [place] [address] Result Comment: <100 mg/dL, Optimal 100-129 mg/dL, Near optimal/above optimal 130-159 mg/dL, Borderline high 160-189 mg/dL, High >189 mg/dL, Very high Secondary prevention optimal LDL Cholesterol levels are recommended to be < 70 mg/dL Performed By: #### 2 4323-8, 93797-2 #### [facility] CLIA [id number] [address] [place] [address] [place] Cholesterol in LDL/Cholesterol in HDL [Mass ratio] 2.05 {ratio} Normal <2.54 [facility] Comment on above: Order Comment: Fito men Type: BLOOD SPECIMEN Ordering Facility: [facility] Address: [address] [place] [address], [place] [address] Result Comment: Refe rence: 1. National Cholesterol Education Program ATP III Guideline At-A-Glance Quick Desk Reference: National Heart, Lung, and Blood [place]. National Institutes of Health. 2001: NIH Publication No. 01-3305. 2. An International Atherosclerosis Society position paper: global recommendations for the management of dyslipidemia: executive summary, Atherosclerosis. 2014: 232(2):410-413. Performed By: #### 2 4323-8, 53055-9 #### [facility] CLIA [id number] [facility] [place] [address] [place] Cholesterol in VLDL [Mass/Vol] 15 mg/dL Normal <30 [facility] Comment on above: Order Comment: Fito velez Type: BLOOD SPECIMEN Ordering Facility: [facility] Address: [address] [place] [address] Performed By: #### 2 4323-8, 30257-7 #### [facility] CLIA [id number] [address] [place] [address] [place] Cholesterol non HDL [Mass/Vol] 95 mg/dL Normal <130 [facility] Comment on above: Order Comment: Fito velez Type: BLOOD SPECIMEN Ordering Facility: [facility] Address: [address] [place] [address], [place] [address] Result Comment: <130 mg/dL, Optimal 130-159 mg/dL, Near optimal/above optimal 160-189 mg/dL, Borderline high 190-219 mg/dL, High >219 mg/dL, Very high Secondary prevention optimal non HDL Cholesterol levels are recommended to be <100 mg/dL Performed By: #### 2 4323-8, 25848-7 #### [facility] CLIA [id number] [facility] [place] [address] [place] Cholesterol.total/C holesterol in HDL [Mass ratio] 3.44 {ratio} Normal <5.10 [facility] Comment on above: Order Comment: Fito velez Type: BLOOD SPECIMEN Ordering Facility: [facility] Address: [address] [place] [address], [place] [address] Performed By: #### 2 4323-8, 15352-3 #### [facility] CLIA [id number] [address] [place] [address] [place] FASTING TIME 11 hrs Normal [facility] Comment on above: Order Comment: Speci men Type: BLOOD SPECIMEN Ordering Facility: [facility] Address: [address] [place] [address], [place] [address] Performed By: #### 2 4323-8, 02234-9 #### [facility] CLIA [id number] [address] [place] [address] [place] Triglyceride [Mass/Vol] 76 mg/dL Normal <150 [facility] Comment on above: Order Comment: Speci men Type: BLOOD SPECIMEN Ordering Facility: [facility] Address: [address] [place] [address], [place] [address] Result Comment: <150 mg/dL, Normal 150-199 mg/dL, Borderline high 200-499 mg/dL, High >499 mg/dL, Very high Performed By: #### 2 4323-8, 41452-7 #### [facility] CLIA [id number] [address] [place] [address] [place] Helico pylori Abon 1 H pylori Ab, IgG 0.4 U/mL Normal [facility] Comment on above: Performed By: #### H BA1C, CBCDIF, CMP, MICRO, FT4, MG1, LIPB, TSH #### [facility] Routine Lab [address] [place] [address] #### HPYLRI #### [facility] [address] [place] [address] H. pylori IgG, Qual Negative Normal Negative [facility] Comment on above: Performed By: #### H BA1C, CBCDIF, CMP, MICRO, FT4, MG1, LIPB, TSH #### [facility] [address] [place] [phone] #### HPYLRI #### [facility] [address] [place] [phone] B Natriuretic Peptidon 06-25 B Natriuretic Peptid 8 pg/mL Normal 0-99 [facility] Comment on above: Performed By: #### H BA1C, CBCDIF, CMP, MICRO, FT4, MG1, LIPB, TSH #### [facility] [address] [place] [phone] #### HPYLRI #### [facility] [address] [place] [phone] CBC and Differentialon 06-24 Abs Baso 0.05 k/uL Normal <0.11 [facility] Comment on above: Performed By: #### H BA1C, CBCDIF, CMP, MICRO, FT4, MG1, LIPB, TSH #### [facility] [address] [place] [phone] #### HPYLRI #### [facility] [address] [place] [phone] Abs Isabela 0.62 k/uL Normal <0.87 [facility] Comment on above: Performed By: #### H BA1C, CBCDIF, CMP, MICRO, FT4, MG1, LIPB, TSH #### [facility] [address] [place] [phone] #### HPYLRI #### [facility] [address] [place] [phone] Abs Neut 5.21 k/uL Normal 1.45-7.50 [facility] Comment on above: Performed By: #### H BA1C, CBCDIF, CMP, MICRO, FT4, MG1, LIPB, TSH #### [facility] [address] [place] [phone] #### HPYLRI #### [facility] [address] [place] [address] Absolute nRBC <0.01 Normal <0.01 [facility] Comment on above: Performed By: #### H BA1C, CBCDIF, CMP, MICRO, FT4, MG1, LIPB, TSH #### [facility] Routine Lab [address] [place] [phone] #### HPYLRI #### [facility] [address] [place] [address] Basophils/100 WBC (Bld) 0.6 % Normal [facility] Reference [facility] Comment on above: Performed By: #### H BA1C, CBCDIF, CMP, MICRO, FT4, MG1, LIPB, TSH #### [facility] [address] [place] [phone] #### HPYLRI #### [facility] [address] [place] [phone] DTYPE ADIFF Normal [facility] Comment on above: Performed By: #### H BA1C, CBCDIF, CMP, MICRO, FT4, MG1, LIPB, TSH #### [facility] [address] [place] [phone] #### HPYLRI #### [facility] [address] [place] [phone] Eosinophils (Bld) [#/Vol] 0.32 10*3/uL Normal <0.46 [facility] Comment on above: Performed By: #### H BA1C, CBCDIF, CMP, MICRO, FT4, MG1, LIPB, TSH #### [facility] [address] [place] [phone] #### HPYLRI #### [facility] [address] [place] [address] Eosinophils/100 WBC (Bld) 4.0 % Normal [facility] Comment on above: Performed By: #### H BA1C, CBCDIF, CMP, MICRO, FT4, MG1, LIPB, TSH #### [facility] [address] [place] [phone] #### HPYLRI #### [facility] [address] [place] [phone] Erythrocyte distribution width (RBC) [Ratio] 13.5 % Normal 11.5-15.0 [facility] Comment on above: Performed By: #### H BA1C, CBCDIF, CMP, MICRO, FT4, MG1, LIPB, TSH #### [facility] [address] [place] [phone] #### HPYLRI #### [facility] [address] [place] [phone] Hematocrit (Bld) [Volume fraction] 49.0 % Normal 39.0-51.0 [facility] Comment on above: Performed By: #### H BA1C, CBCDIF, CMP, MICRO, FT4, MG1, LIPB, TSH #### [facility] [address] [place] [phone] #### HPYLRI #### [facility] [address] [place] [phone] Hemoglobin (Bld) [Mass/Vol] 15.2 g/dL Normal 13.0-17.0 [facility] Comment on above: Performed By: #### H BA1C, CBCDIF, CMP, MICRO, FT4, MG1, LIPB, TSH #### [facility] [address] [place] [phone] #### HPYLRI #### [facility] [address] [place] [phone] Lymphocytes (Bld) [#/Vol] 1.87 10*3/uL Normal 1.00-4.00 [facility] Comment on above: Performed By: #### H BA1C, CBCDIF, CMP, MICRO, FT4, MG1, LIPB, TSH #### [facility] [address] [place] [phone] #### HPYLRI #### [facility] [address] [place] [phone] Lymphocytes/100 WBC (Bld) 23.2 % Normal [facility] Comment on above: Performed By: #### H BA1C, CBCDIF, CMP, MICRO, FT4, MG1, LIPB, TSH #### [facility] [address] [place] [phone] #### HPYLRI #### [facility] [address] [place] [phone] MCH 29.2 pG Normal 26.0-34.0 [facility] Comment on above: Performed By: #### H BA1C, CBCDIF, CMP, MICRO, FT4, MG1, LIPB, TSH #### [facility] [address] [place] [phone] #### HPYLRI #### [facility] [address] [place] [phone] MCHC (RBC) [Mass/Vol] 31.0 g/dL Normal 30.5-36.0 [facility] Comment on above: Performed By: #### H BA1C, CBCDIF, CMP, MICRO, FT4, MG1, LIPB, TSH #### [facility] [address] [place] [phone] #### HPYLRI #### [facility] [address] [place] [phone] MCV (RBC) [Entitic vol] 94.0 fL Normal 80.0-100.0 [facility] Comment on above: Performed By: #### H BA1C, CBCDIF, CMP, MICRO, FT4, MG1, LIPB, TSH #### [facility] [address] [address] #### HPYLRI #### [facility] [address] [place] [address] Monocytes/100 WBC (Bld) 7.7 % Normal [facility] Comment on above: Performed By: #### H BA1C, CBCDIF, CMP, MICRO, FT4, MG1, LIPB, TSH #### [facility] [address] [place] [address] #### HPYLRI #### [facility] [address] [place] [phone] Neutrophils/100 WBC (Bld) 64.5 % Normal [facility] Comment on above: Performed By: #### H BA1C, CBCDIF, CMP, MICRO, FT4, MG1, LIPB, TSH #### [facility] [address] [place] [address] #### HPYLRI #### [facility] [address] [place] [address] NRBCs 0.0 /100 WBC Normal 0 [facility] Comment on above: Performed By: #### H BA1C, CBCDIF, CMP, MICRO, FT4, MG1, LIPB, TSH #### [facility] [address] [place] [address] #### HPYLRI #### [facility] [address] [place] [address] Platelet mean volume (Bld) [Entitic vol] 10.2 fL Normal 9.0-12.7 [facility] Comment on above: Performed By: #### H BA1C, CBCDIF, CMP, MICRO, FT4, MG1, LIPB, TSH #### [facility] [address] [place] [phone] #### HPYLRI #### [facility] [address] [place] [phone] Platelets (Bld) [#/Vol] 335 10*3/uL Normal 150-400 [facility] Comment on above: Performed By: #### H BA1C, CBCDIF, CMP, MICRO, FT4, MG1, LIPB, TSH #### [facility] [address] [place] [phone] #### HPYLRI #### [facility] [address] [place] [phone] RBC (Bld) [#/Vol] 5.21 10*6/uL Normal 4.20-6.00 [facility] Reference Lab Comment on above: Performed By: #### H BA1C, CBCDIF, CMP, MICRO, FT4, MG1, LIPB, TSH #### [facility] [address] [place] [phone] #### HPYLRI #### [facility] [address] [place] [phone] WBC (Bld) [#/Vol] 8.07 10*3/uL Normal 3.70-11.00 [facility] Comment on above: Performed By: #### H BA1C, CBCDIF, CMP, MICRO, FT4, MG1, LIPB, TSH #### [facility] [address] [place] [phone] #### HPYLRI #### [facility] [address] [place] [address] Comp Metabolic Panelon 06-24 Albumin [Mass/Vol] 4.3 g/dL Normal 3.9-4.9 [facility] Reference Lab Comment on above: Performed By: #### H BA1C, CBCDIF, CMP, MICRO, FT4, MG1, LIPB, TSH #### [facility] [address] [place], [place] [address] #### HPYLRI #### [facility] [address] [place] [phone] ALP [Catalytic activity/Vol] 116 U/L High 38-113 [facility] Comment on above: Performed By: #### H BA1C, CBCDIF, CMP, MICRO, FT4, MG1, LIPB, TSH #### [facility] [address] [place] [phone] #### HPYLRI #### [facility] [address] [place], [place] [phone] ALT [Catalytic activity/Vol] 22 U/L Normal 10-54 [facility] Comment on above: Performed By: #### H BA1C, CBCDIF, CMP, MICRO, FT4, MG1, LIPB, TSH #### [facility] [address] [place] [address] #### HPYLRI #### [facility] [address] [place] [phone] Anion gap [Moles/Vol] 11 mmol/L Normal 9-18 [facility] Comment on above: Performed By: #### H BA1C, CBCDIF, CMP, MICRO, FT4, MG1, LIPB, TSH #### [facility] [address] [place] [address] #### HPYLRI #### [facility] [address] [place] [address] AST [Catalytic activity/Vol] 25 U/L Normal 14-40 [facility] Comment on above: Performed By: #### H BA1C, CBCDIF, CMP, MICRO, FT4, MG1, LIPB, TSH #### [facility] [address] [place], [place] [address] #### HPYLRI #### [facility] [address] [place] [address] Bilirubin [Mass/Vol] 0.3 mg/dL Normal 0.2-1.3 [facility] Comment on above: Performed By: #### H BA1C, CBCDIF, CMP, MICRO, FT4, MG1, LIPB, TSH #### [facility] [address] [place] [address] #### HPYLRI #### [facility] [address] [place] [address] Calcium [Mass/Vol] 9.9 mg/dL Normal 8.5-10.2 [facility] Reference Lab Comment on above: Performed By: #### H BA1C, CBCDIF, CMP, MICRO, FT4, MG1, LIPB, TSH #### [facility] [address] [place] [address] #### HPYLRI #### [facility] [address] [place] [address] Chloride [Moles/Vol] 104 mmol/L Normal 97-105 [facility] Comment on above: Performed By: #### H BA1C, CBCDIF, CMP, MICRO, FT4, MG1, LIPB, TSH #### [facility] [address] [place] [address] #### HPYLRI #### [facility] [address] [place] [address] CO2 [Moles/Vol] 26 mmol/L Normal 22-30 [facility] Comment on above: Performed By: #### H BA1C, CBCDIF, CMP, MICRO, FT4, MG1, LIPB, TSH #### [facility] [address] [place] [address] #### HPYLRI #### [facility] [address] [place] [address] Creatinine [Mass/Vol] 0.72 mg/dL Low 0.73-1.22 [facility] Comment on above: Performed By: #### H BA1C, CBCDIF, CMP, MICRO, FT4, MG1, LIPB, TSH #### [facility] [address] [place] [address] #### HPYLRI #### [facility] [address] [place] [address] eGFR- Amer. >60 Normal [facility] Reference [facility] Comment on above: Performed By: #### H BA1C, CBCDIF, CMP, MICRO, FT4, MG1, LIPB, TSH #### [facility] [address] [place] [address] #### HPYLRI #### [facility] [address] [place] [address] eGFR-All Other Races >60 Normal [facility] Comment on above: Performed By: #### H BA1C, CBCDIF, CMP, MICRO, FT4, MG1, LIPB, TSH #### [facility] [address] [place] [address] #### HPYLRI #### [facility] [address] [place] [address] Glucose [Mass/Vol] 79 mg/dL Normal 74-99 [facility] Comment on above: Performed By: #### H BA1C, CBCDIF, CMP, MICRO, FT4, MG1, LIPB, TSH #### [facility] [address] [place] [address] #### HPYLRI #### [facility] [address] [place] [address] Potassium [Moles/Vol] 4.1 mmol/L Normal 3.7-5.1 [facility] Comment on above: Performed By: #### H BA1C, CBCDIF, CMP, MICRO, FT4, MG1, LIPB, TSH #### [facility] [address] [place] [address] #### HPYLRI #### [facility] [address] [place] [address] Protein [Mass/Vol] 7.1 g/dL Normal 6.3-8.0 [facility] Comment on above: Performed By: #### H BA1C, CBCDIF, CMP, MICRO, FT4, MG1, LIPB, TSH #### [facility] [address] [place] [address] #### HPYLRI #### [facility] [address] [place], [place] [phone] Sodium [Moles/Vol] 141 mmol/L Normal 136-144 [facility] Comment on above: Performed By: #### H BA1C, CBCDIF, CMP, MICRO, FT4, MG1, LIPB, TSH #### [facility] [address] [place] [address] #### HPYLRI #### [facility] [address] [place] [address] Urea nitrogen [Mass/Vol] 17 mg/dL Normal 9-24 [facility] Comment on above: Performed By: #### H BA1C, CBCDIF, CMP, MICRO, FT4, MG1, LIPB, TSH #### [facility] [address] [place] [address] #### HPYLRI #### [facility] [address] [place] [address] Free T4on 06-24-2021 Free T4 [Mass/Vol] 1.2 ng/dL Normal 0.9-1.7 [facility] Comment on above: Performed By: #### H BA1C, CBCDIF, CMP, MICRO, FT4, MG1, LIPB, TSH #### [facility] Routine Lab [address] [place] [phone] #### HPYLRI #### [facility] [address] [place] [phone] Hemoglobin A1con 06-24-2021 Glucose [Mass/Vol] 128 mg/dL Normal [facility] Reference [facility] Comment on above: Performed By: #### H BA1C, CBCDIF, CMP, MICRO, FT4, MG1, LIPB, TSH #### [facility] [address] [place] [address] #### HPYLRI #### [facility] [address] [place] [address] HbA1c (Bld) [Mass fraction] 6.1 % High 4.3-5.6 [facility] Comment on above: Performed By: #### H BA1C, CBCDIF, CMP, MICRO, FT4, MG1, LIPB, TSH #### [facility] [address] [place] [address] #### HPYLRI #### [facility] [address] [place] [phone] Lipid Panel, Basicon 021 Cholesterol [Mass/Vol] 140 mg/dL Normal <200 [facility] Comment on above: Performed By: #### H BA1C, CBCDIF, CMP, MICRO, FT4, MG1, LIPB, TSH #### [facility] Routine Lab [address] [phone] #### HPYLRI #### [facility] [address] [address] Cholesterol in HDL [Mass/Vol] 31 mg/dL Low >39 [facility] Comment on above: Performed By: #### H BA1C, CBCDIF, CMP, MICRO, FT4, MG1, LIPB, TSH #### [facility] [address] [address] #### HPYLRI #### [facility] [address] [place] [address] Cholesterol in LDL [Mass/Vol] 82 mg/dL Normal <100 [facility] Comment on above: Performed By: #### H BA1C, CBCDIF, CMP, MICRO, FT4, MG1, LIPB, TSH #### [facility] [address] [place] [address] #### HPYLRI #### [facility] [address] [place] [address] Cholesterol in VLDL [Mass/Vol] 27 mg/dL Normal <30 [facility] Comment on above: Performed By: #### H BA1C, CBCDIF, CMP, MICRO, FT4, MG1, LIPB, TSH #### [facility] [address] [place] [phone] #### HPYLRI #### [facility] [address] [place], [place] [phone] Cholesterol non HDL [Mass/Vol] 109 mg/dL Normal <130 [facility] Comment on above: Performed By: #### H BA1C, CBCDIF, CMP, MICRO, FT4, MG1, LIPB, TSH #### [facility] [address] [place] [address] #### HPYLRI #### [facility] [address] [phone] LDL:HDL Ratio 2.65 High <2.54 [facility] Comment on above: Performed By: #### H BA1C, CBCDIF, CMP, MICRO, FT4, MG1, LIPB, TSH #### [facility] [address] [place] [phone] #### HPYLRI #### [facility] [address] [place] [phone] TC:HDL Ratio 4.52 Normal <5.10 [facility] Comment on above: Performed By: #### H BA1C, CBCDIF, CMP, MICRO, FT4, MG1, LIPB, TSH #### [facility] [address] [place] [phone] #### HPYLRI #### [facility] [address] [place] [phone] Triglyceride [Mass/Vol] 135 mg/dL Normal <150 [facility] Comment on above: Performed By: #### H BA1C, CBCDIF, CMP, MICRO, FT4, MG1, LIPB, TSH #### [facility] [address] [place] [phone] #### HPYLRI #### [facility] [address] [place] [phone] Magnesiumon 06-24-2021 Magnesium [Mass/Vol] 2.2 mg/dL Normal 1.7-2.3 [facility] Comment on above: Performed By: #### H BA1C, CBCDIF, CMP, MICRO, FT4, MG1, LIPB, TSH #### [facility] [address] [place] [phone] #### HPYLRI #### [facility] [address] [place] [address] TPO Antibodyon 06-24-2021 TPO Antibody <1.0 Normal <5.6 [facility] Comment on above: Performed By: #### H BA1C, CBCDIF, CMP, MICRO, FT4, MG1, LIPB, TSH #### [facility] Routine Lab [address] [place] [address] #### HPYLRI #### [facility] [address] [place] [address] TSHon 06-24-2021 TSH Qn 3.280 m[IU]/L Normal 0.270-4.200 [facility] Comment on above: Performed By: #### H BA1C, CBCDIF, CMP, MICRO, FT4, MG1, LIPB, TSH #### [facility] Routine Lab [address] [place] [address] #### HPYLRI #### [facility] [address] [place] [address] Lipid Panel, Basicon 021 Fasting Time UN Normal [facility] Comment on above: Performed By: #### H BA1C, CBCDIF, CMP, MICRO, FT4, MG1, LIPB, TSH #### [facility] Routine Lab [address] [place] [address] #### HPYLRI #### [facility] [address] [place] [address] XR Wrist - left PA and Later al and Obliqueon 05-16-2020 IMPRESSION: 1. 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 2. 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 Sequins Slinger: BIRDIE Transcribe Date/Time: May 16 2020 4:31P [...] soft tissue swelling. DIVISION OF RADIOLOGY Provider, [facility] - 05/16/2020 * * *Final Report* * [...] are suggestive of early scapholunate advanced collapse. Sequins Slinger: BIRDIE Transcribe Date/Time: May 16 2020 4:31P Dictated by : GILBERTO FERRER MD This examination was interpreted and the report reviewed and electronically signed by: GILBERTO FERRER MD on May 16 2020 4:45PM EST [facility] Radiology Study observation (narrative) [facility] XR Wrist - left PA and Later al and ObliqueOrdered By: [facility] Provider on 05-16-2020 [facility] ANES POSTPROC EVALon 020 ANES POSTPROC EVAL HNO ID: [id number] Author: Shameka Rodriguez Service: ? Author Type: Anesthesiologist Type: Anesthesia Postprocedure Evaluation Filed: 04/10/2020 4:19 PM Note Text: POST ANESTHESIA EVALUATION NOTE : 1955 Procedure Summary Date: 04/10/20 Room / Location: [place] [address] / [facility] Anesthesia Start: 1325 Anesthesia Stop: 1418 Procedure: RECONSTRUCTION TOE HAMMER (Right Foot) Diagnosis: Neoplasm of uncertain behavior of skin Surgeons: Yesenia Gurrola DPM Responsible Provider: Shameka Rodriguez Anesthesia [...] care. SIGNATURE: Shameka Rodriguez MD PATIENT NAME: Ari Lawson DATE: April 10, 2020 TIME: 4:19 PM CSN: [id number] [facility] ANES PRE-OPon 04-10-2020 ANES PRE-OP HNO ID: [id number] Author: Shameka Rodriguez Service: ? Author Type: Anesthesiologist Type: Anesthesia Preprocedure Evaluation Filed: 04/10/2020 11:09 AM Note Text: ANESTHESIOLOGY DAY OF SURGERY NOTE : 1955 Procedure(s) (LRB): RECONSTRUCTION TOE HAMMER (Right) Surgeon(s): Yesenia Gurrola DPM Estimated body mass index is [...] Surgery/Procedure. SIGNATURE: Shameka Rodriguez MD PATIENT NAME: Ari Lawson DATE: April 10, 2020 TIME: 11:08 AM CSN: [id number] Normal [facility] OPERATIVE NOon 04-10-2020 OPERATIVE NO HNO ID: [id number] Author: Yesenia Gurrola DPM Service: Podiatry Author Type: Physician Type: Operative Report Filed: 04/11/2020 8:31 AM Note Text: [facility] - Operative Report ARI LAWSON : 1955 AGE: 64. SEX: M PATIENT TYPE: A HOSP SVC: PODI LOCATION: [facility] ATTENDING PHYSICIAN: Yesenia Gurrola D.P.M. CSN NUMBER: [id number] DATE OF SURGERY/PROCEDURE: 04/10/2020 INCISION/PROCEDURE START TIME: 1:44 PM INCISION CLOSE/PROCEDURE END TIME: 2:09 PM PREOPERATIVE DIAGNOSIS: 1. 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 2. 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 POSTOPERATIVE DIAGNOSIS: Same SURGEON: Yesenia Gurrola D.P.M. MANAGER FLEET: Ismael, PGY-2. SURGERY/PROCEDURE: Skin biopsy x2, one [...] follow up with me in 1 week. Yesenia Gurrola D.P.M. RL:[id number] /[id number] cc: * Normal [facility] PT EDon 04-10-2020 PT ED HNO ID: [id number] Author: Kalin (Rn) JAMMIE Mo Service: Nursing [...] Signed By: Kalin Mo RN In Department: [facility] SURGERY [facility] PT ED HNO ID: [id number] Author: Britney StreeterRn) Nory RN Service: ? Author Type: Registered [...] Signed By: Britney Cueto RN In Department: [facility] SURGERY [facility] SURGICAL PATHOLOGYon 020 SURGICAL PATHOLOGY Specimen originated from [facility] Specimen #: [id number] Submitting Physician: YESENIA GURROLA M.D. FINAL DIAGNOSIS 1. Skin and [...] D1. TN/td 04/11/2020 [place] [address] Date of Report: 04/15/2020 Date of Procedure: 04/10/2020 Date of Receipt: 04/10/2020 Submitted by: YESENIA GURROLA M.D. Location: [facility] Diagnostic interpretation performed at [place] [address]. [place] Number: [id number] [facility] NURSING PROGon 04-05-2020 NURSING PROG HNO ID: [id number] Author: Renae Acevedo (Rn) JAMMIE Branham Service: [...] Branham RN April 05, 2020 7:48 AM [facility] HISTORY PHYSICALon 0 HISTORY PHYSICAL HNO ID: [id number] Author: Alana (Azucena) Tien Service: ? Author Type: Nurse Practitioner Type: HANDP Filed: 04/04/2020 3:36 PM Note Text: HISTORY AND PHYSICAL EXAMINATION SERVICE DATE: 04/04/2020 SERVICE TIME: 2:55 PM PRIMARY CARE PHYSICIAN: Apolinar Jones MD REASON FOR VISIT: Ari Lawson is a 64 year old male who is scheduled for RECONSTRUCTION TOE HAMMER, excision neoplasm right foot at the request of Dr. Yesenia Gurrola for consultation. My final recommendation will [...] OR W/O BRSH SPEC 09/20/2019 Colonoscopy - MO ANESTH,CARDIAC CATH W/CORON ART AND VENT 02/2001 - TOOTH EXTRACTION FAMILY HISTORY Problem Relation Age of Onset - Heart Father [place], TRIPLE CABG - Hypertension Father - Colon Cancer Mother complications of surgery - Hypertension Mother - Heart Mother - other (Other) Sister tuberculosis - Coronary Artery Disease Brother - Coronary Artery Disease Brother massive [place] - Cancer Sister bone cancer SOCIAL HISTORY: [...] fevers. Neuro: No history of TIA's, stroke, [employer] WORK[employer] tumor, impaired sensorium, hemiplegia, paraplegia or quadraplegia. No neurological symptoms or problems. Respiratory: (+) Former smoker-quit 2001. No history of current cough or dyspnea, or pneumonia in the past 6 weeks. No history of respiratory/pulmonary symptoms or problems. Cardiovascular: (+) HLD-controlled on Rx. Last lipid panel 08/2019. (+) Prinzmetal angina-heart cath 2000. No hx of PCI. No history of HTN, angina, CHF, [place] or stent. Denies rest pain, gangrene or [...] compliance. SIGNATURE: Alana Chauhan APRN.CNP PATIENT NAME: Ari Lawson DATE: April 04, 2020 TIME: 2:55 PM PAGER/CONTACT #: [facility] HOSPon 03-22-2020 HOSP Patient:Mariana Lawson MRN: Height:5' [...] notes entered within the past 30 days [facility] Vital Signs Date Time Vital Sign Value Performing Clinician Michelle balderas 10-23-2021 10:58-0400 Body height 170.18 cm [facility]AT MODEL-C [employer]ingle Work Phone: [facility] Work Phone: 10-23-2021 10:58-0400 Body mass index (BMI) [Ratio] 28.1 kg/m2 [facility] [employer] Work Phone: [facility] Work Phone: 10-23-2021 10:58-0400 Body weight 81.64 kg [facility]DEL[facility] [employer] Work Phone: [facility] Work Phone: 10-23-2021 10:58-0400 Diastolic blood pressure 92 mm[Hg] HAT MODEL-C [employer]ingle Work Phone: [facility] Work Phone: 10-23-2021 10:58-0400 Heart rate 72 /min [facility]AT MODEL-C YuMingle Work Phone: [facility] Work Phone: 10-23-2021 10:58-0400 Respiratory rate 18 /min HAT MODEL-C Concepción OuiCar Work Phone: [facility] Work Phone: 10-23-2021 10:58-0400 Systolic blood pressure 154 mm[Hg] HAT MODEL-C Concepción OuiCar Work Phone: [facility] Work Phone: Encounters Encounter Date Encounter Type Care Provider Facility Start: 02-07-2025 ambulatory Suresh Anna Facility:[facility] Start: 12-22-2024 Non-patient / Non-visit Dr. Judy Venegas MD -[facility] Start: 12-22-2024 End: 12-22-2024 ambulatory Suresh Castillo MD Work Phone: [facility] Work Phone: Start: 12-22-2024 End: 12-22-[address] Suresh Castillo MD -[facility] Work Phone: Start: 12-22-2024 End: 12-22-[address] [facility] Facility:[facility] Start: 07-07-2024 End: 07-07-2024 Emergency department patient visit [facility] Facility:[facility] Start: 04-22-2024 End: 04-22-[address] [facility] Facility:[facility] Start: 04-01-2024 End: 04-01-[address] [facility] Facility:[facility] Start: 02-21-2024 End: 02-21-[address] [facility] Facility:[facility] Start: 11-11-2021 Non-patient / Non-visit HAT MODEL-C Basia Weiss Work Phone: [facility] Start: 11-11-2021 End: 11-11-2021 Patient encounter procedure HAT MODEL-C Concepción Weiss Work Phone: [facility] Start: 10-23-2021 End: 10-23-2021 Patient encounter procedure HAT MODEL-C Concepción Weiss Work Phone: [facility] Start: 09-25-2021 Non-patient / Non-visit HAT MODEL-C Basia Weiss Work Phone: [facility] Start: 05-16-2020 End: 05-16-2020 Subsequent hospital visit by physician [facility] Work Phone: Radiology Comment on above: Swelling of joint of left wrist [M25.432] Procedures Date Procedure Procedure Detail Performing Clinician Start: 01-26-2022 Lipid 1996 panel - S joseph or Plasma [facility] Work Phone: Start: 11-11-2021 Cardiovascular stres s test using pharmacologic stress agent HAT MODEL-C Concepción Weiss Work Phone: Start: 09-05-2021 PSA screening Comment on above: Performed By: #### H BA1C, CBCDIF, CMP, MICRO, FT4, MG1, LIPB, TSH #### [facility] Routine Lab [address] [address] #### HPYLRI #### [facility] Immunology [address] [address] Start: 05-16-2020 Radex wrist complete minimum 3 views Apolinar Jones MD Work Phone: Start: 09-20-2019 Colonoscopy [facility] Work Phone: Plan of Treatment Date Care Activity Detail Author Start: 05-16-2030 Urine microalbumin profile DTaP,Tdap,Td Vaccine (1 - Tdap) [facility] Comment on above: Postponed from 05/17 (Postponed - Not Clinically Indicated) Start: 2029 RSV Vaccine (1 - 1-d ose 75+ series) RSV Vaccine (1 - 1-dose 75+ series) [facility] Start: 01-26-2027 Lipid panel Lipid Screening [facility] Start: 09-16-2025 Pneumococcal Vaccine : 65+ (3 of 3 - PPSV23 or PCV20) Pneumococcal Vaccine: 65+ (3 of 3 - PPSV23 or PCV20) [facility] Start: 01-26-2025 Diabetes Screening Diabetes Screenin g [facility] Start: 03-19-2024 Covid-19 Vaccine ( season) Covid-19 Vaccine () [facility] Start: 03-19-2024 Influenza vaccination Influenza Vacc ine (#1) [facility] Start: 07-19-2023 Advance Directive Discussion Advance Directive Discussion [facility] Start: 09-19-2022 Screening for malign ant neoplasm of colon [facility] Start: 11-20-2021 Shingrix Vaccine (2 of 2) Shingrix Vaccine (2 of 2) [facility] Start: 1999 Screening for malign ant neoplasm of colon [facility] Start: 1972 Anxiety Screening Anxiety Screening [facility] Start: 1972 Depression Screening Depression Scre ening [facility] Patient referral [facility] Work Phone: Immunizations Immunization Date Immunization Notes Care Provider Fa bruce 04-22-2024 tetanus toxoid, redu gena diphtheria toxoid, and acellular pertussis vaccine, adsorbed Suresh Castillo MD Work Phone: [facility] 05-16-2020 influenza (HD-IIV4) vaccine, age 65+ yr, high dose, quadrivalent, PF (FLUZONE HIGH-DOSE) [facility] Work Phone: [facility] 05-16-2020 tetanus and diphther ia toxoids, adsorbed, preservative free, for adult use (5 Lf of tetanus toxoid and 2 Lf of diphtheria toxoid) [facility] Work Phone: [facility] 05-16-2020 influenza virus vacc ine, unspecified formulation [facility] Work Phone: [facility] 05-30-2015 influenza, injectabl e, quadrivalent, contains preservative [facility] Work Phone: [facility] 05-30-2014 influenza, injectabl e, quadrivalent, contains preservative [facility] Work Phone: [facility] 05-29-2005 influenza virus vacc ine, unspecified formulation [facility] Work Phone: [facility] 05-29-2005 pneumococcal polysaccharide vaccine, 23 valent [facility] Work Phone: [facility] Payers Date Payer Category Payer Self-pay [id number] 2024 Unknown [id number] 2019 Medicare [facility] AARP MEDICAR E [facility] AARP MEDICARE PPO [id number] 2019-2019 [address] [address] [place] [address] PPO [id number] Medicaid [id number] Medicare AARP MCR ADV [id number] UNKNOWN [id number] MEDICARE PART A B [id number] Unknown [id number] Unknown [id number] Unknown [id number] Unknown [id number] Unknown [id number] Unknown [id number] Unknown [id number] Social History Date Type Detail Facility Start: 10-23-2021 Tobacco smoking status MDIS Unknown if ever smoked [facility] Work Phone: Start: 1955 Sex Assigned At Male [facility] Start: 09-04-2019 End: 07-07-2024 Tobacco smoking status NHIS Ex-smoker [facility] Start: 1968 End: 07-19-2001 History of tobacco use Current smoker [facility] Start: 1968 End: 07-19-2001 History of tobacco use Cigarette Smoker [facility] Start: 09-04-2019 End: 05-16-2020 Cigarettes smoked current (pack per day) - Reported 2 [facility] Start: 09-04-2019 Tobacco use and exposure Smokeless tobacco non-user [facility] Start: 05-16-2020 Alcoholic beverage intake Current drinker of alcohol (finding) [facility] Start: 09-04-2019 End: 05-16-2020 Alcohol Use Disorder Identification Test - Consumption [AUDIT-C] [facility] How often to you hav e a drink containing alcohol? Monthly or less [facility] How many standard dr inks containing alcohol do you have on a typical day? 1 or 2 [facility] How often do you hav e 6 or more drinks on 1 occasion? Never [facility] Start: 09-20-2019 Alcohol Comment occassionally [facility] Start: 1955 Sex assigned at Not on file [facility] Start: 04-16-2020 End: 05-16-2020 Exposure to SARS-CoV-2 (event) Not sure [facility] History of Present illness Narrative 05-16-2020 Keira Faulkner (Rt)Ramiro - 05/16/2020 11:40 AM EDT Note Date & Type Note Facility 05-16-2020 History of Presen t illness Narrative Radiology Service Progress Note PATIENT NAME: Ari Lawson DATE OF SERVICE: May 16, 2020 [...] 2020 11:41 AM documented in this encounter [facility] Evaluation note Note Date & Type Note Facility Evaluation note Diagnosis Onset Date Chest pain acute Family history of coronary artery disease acute Pure hypercholesterolemia ac [place] SOB (shortness of breath) on exertion acute COPD (chronic obstructive pulmonary disease) chronic [facility] Work Phone: Evaluation note Note Date & [...] of forearm joint documented in this encounter [facility] Evaluation note Note Date & Type Note Facility Evaluation note No assessment information availa ble [facility] Work Phone: Reason for referral (narrative) Note Date & Type Note Facility Reason for referral (narrative) No reason for referral information available [facility] Work Phone: Summary Purpose Family History No [...] Records Found Procedure Findings Note HNO ID: [id number] Author: Curtis Rodriguez Service: ? Author Type: Anesthesiologist Type: Anesthesia Procedure Notes Filed: 04/10/2020 4:19 PM Note Text: ANESTHESIOLOGY PROCEDURE NOTE Airway General Information Procedure Start Time/Medication Administration: 04/10/2020 1:34 PM Patient location during procedure: OR Timeout Performed Pre-procedure: timeout performed Consent Obtained: Yes Patient identity confirmed: arm band and patient Staffing MACHINE HAND: Anny Mccabe Performed by: MACHINE HAND Indications and Patient Condition Preoxygenated: yes Patient position: sniffing Indications for airway management: anesthesia anesthesia circuit Method: asleep Airway Accessory: LMA Final Airway Details Final airway type: supraglottic airway Number of attempts at approach: 1 Final Supraglottic Airway: IGEL Size 4 Comments I-Gel 4 inserted SIGNATURE: Anny Mccabe APRN.CRNA PATIENT NAME: Ari Lawson DATE: April 10, 2020 TIME: 1:45 PM CSN: [id number] Note HNO ID: [id number] Author: Edel Gurrola DPM Service: Podiatry Author Type: Physician Type: Brief Op Note Filed: 04/10/2020 2:08 PM Note Text: BRIEF OPERATIVE / PROCEDURE NOTE LOG ID: [id number] SURGERY/PROCEDURE DATE: 04/10/2020 INCISION/PROCEDURE START TIME: 1:44 PM INCISION CLOSE/PROCEDURE END TIME: SURGEON(S)/PROCEDURALIST(S) AND MANAGER FLEET(S): Surgeon(s) and Role: * Yesenia Gurrola DPM - Primary * Frank (Emiliano Guevara - Resident - Assisting Registered Nurse Metal Organ Pipe Maker: Gill (Rn) JAMMIE Flores SURGERY/PROCEDURE(S): Skin Biopsy x2 central lesion and proxmial margain Deep fascial biopsy first and second innerspace x2 Right foot ANESTHESIA: General FINDINGS: ESTIMATED BLOOD LOSS: less then ten cc SPECIMENS: Skin x2 for path Deep fascial neoplasm x2 sent for path COMPLICATIONS: none PRE-OP/PRE-PROCEDURE DIAGNOSIS: Skin neoplasm, Deep connective tissue neopaslm right foot POST-OP/POST-PROCEDURE DIAGNOSIS: SIGNATURE: Yesenia Gurrola DPM PATIENT NAME: Ari Lawson DATE: (more content not included)... Chief Complaint and Reason for Visit Chief Complaint Amb Documentation FAMILY HX, OCC CP ([facility] CONCEPCIÓN WEISS CNP) SHORTNESS OF BREATH SHORTNESS OF [...] section and content) DATE CREATED AUTHOR 04/16/2020 [facility] DATE CREATED AUTHOR AUTHOR'S ORGANIZ ATION 09/06/2021 [facility] DATE CREATED AUTHOR AUTHOR'S ORGANIZ ATION 01/27/2022 [facility] DATE CREATED AUTHOR AUTHOR'S ORGANIZ ATION 02/08/2025 [facility] Goals (unrecognized section and content) Goals [...] or prosecute any alcohol or drug abuse patient.[facility] Reason for Visit (unrecogniz ed section and content) Specialty Diagnoses / Procedures Referred By Molly correa Referred To Contact Radiology / [facility] Diagnoses Swelling of joint of left wrist [M25.432] Procedures XR GENERAL 7 Apolinar Jones MD [address] [place] [address] [facility] [address] [place] [address] Referral ID Status Reason Start Date Expiration Date Visits Re quested Visits Authorized [id number] Closed 05/16/2020 07/18/2020 1 1 Care Teams (unrecognized sec tion and content) 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 [facility] [employer] [facility]. provides no warranty or guarantee of the accuracy or completeness of information in this document.
[2025-02-21 10:53] LABS: AST(SGOT) 28 U/L (<=37); Alanine Aminotransfer ALT/SGPT 31 U/L (<=46); Albumin, Serum 4.0 g/dL (3.4-4.8); Alkaline Phosphatase 124 U/L (40-129); Anion Gap 11 (5-15); BUN 15 mg/dL (4-19); BUN/Creat Ratio 23.6 RATIO (10-20); Calcium,Total 9.5 mg/dL (7.6-11.0); Carbon Dioxide 23.4 mmol/L (21.0-32.0); Chloride 106 mmol/L (98-108); Cholesterol 161 mg/dL (<=200); Globulin 2.8 g/dL (2.2-4.2); Glucose 102 mg/dL (70-99); Low Density Lipoprotein Calc. 90 mg/dL; PSA,Total - Annual Screen 0.43 ng/mL (0.02-4.00); Potassium 4.3 mmol/L (3.3-5.1); Triglycerides 145 mg/dL; Very Low Density Lipoprotein 29 mg/dL (5-40); cholesterol:hdl ratio screen 3.81
== END | disposition home or self-care (01) ==
LOC: MFPLAB 08:54
PROVIDERS: PCP Family Medicine; Referring Provider Family Medicine; Visit Provider Family Medicine
DX: R01.1 Cardiac murmur, unspecified (principal); Z12.5 Encounter for screening for malignant neoplasm of prostate
CPT/HCPCS: 36415; 80053; 80061; 84153; G0103